=== PATIENT | female | born 1940 | race Caucasian/White ===

== ENCOUNTER 2019-12-23 14:20 | Outpatient (RCR) | payer SELFPAY | END 2020-07-26 14:24 | disposition home or self-care (01) | LOC: ANHCPRIII 14:20 | DX: I25.10 Atherosclerotic heart disease of native coronary artery without angina pectoris (principal) | CPT/HCPCS: 99199 ==

== ENCOUNTER 2023-06-10 11:16 | Inpatient (IN) | payer MEDICARE, OTHER, SELFPAY ==
--- NOTE | ~2023-06-10 | CT_ITS ---
EXAMINATION: CT abdomen pelvis w con DATE: 06/10/2023 12:57 INDICATION: Nonlocalized abdominal pain TECHNIQUE: Computed tomography (CT) of the abdomen and pelvis was performed with 100 cc Omnipaque 350 intravenous contrast. The dose-length product was 983.88 mGy-cm. Automated exposure control and iter ative reconstruction technique were employed. COMPARISON: None. FINDINGS: Lung bases are unremarkable. Heart size is normal. No significant pleural or pericardial ef fusion. The liver, spleen, pancreas, adrenal glands are unremarkable. The right kidney is unremarkabl e. There is heterogeneously decreased enhancement of the left kidney with moderate left perinephric s tranding cyst. Findings compatible with pyelonephritis. Status post cholecystectomy. There is atheros clerosis of the aorta without aneurysm. Colonic diverticulosis without evidence for diverticulitis. S mall fat-containing umbilical hernia. Colonic diverticulosis without evidence for diverticulitis. No free air. Bladder wall is mildly thickened. Severe lumbar spondylosis with grade 1 spondylolisthesis at L4-5. IMPRESSION: 1. Asymmetric geographic hypoperfusion of the left kidney with surrounding inflammatory changes, susp icious for pyelonephritis. There is bladder wall thickening. Cannot exclude ascending urinary tract i nfection. Reviewed, dictated and finalized at location B. IMPRESSION: 1. Asymmetric geographic hypoperfusion of the left kidney with surrounding infl ammatory changes, suspicious for pyelonephritis. There is bladder wall thickeni ng. Cannot exclude ascending urinary tract infection.
--- NOTE | ~2023-06-10 | XR_ITS ---
EXAMINATION: XR chest 1V portable 06/11/2023 16:39 INDICATION: Shortness of breath PROCEDURE: AP portable chest COMPARISON: Comparison to multiple prior studies sequentially, with oldest reviewed study dated 02/07. FINDINGS: The lungs are clear. Pacemaker leads in expected position. The cardiomediastinal silhouette is within normal limits. There are no pleural effusions. There is no pneumothorax suspected. IMPRESSION: 1: NO ACUTE CARDIOPULMONARY DISEASE. Reviewed, dictated and finalized at location L.
[2023-06-10 11:10] VITALS: BP 163/57; PULSE 64; RESP 19; TEMP 37; O2SAT 98
[2023-06-10 12:00] LABS: Basophils Absolute Auto 0.1 K/mm3 (0.0-0.1); Basophils Percent Auto 0.3 % (0.2-1.2); Eosinophils Absolute Auto 0.1 K/mm3 (0-0.3); Eosinophils Percent Auto 0.3 % (0-4.4); Hematocrit 32.7 % (37.0-47.0); Hemoglobin 10.4 g/dL (12.0-15.0); Immature Granulocyte Absolute 0.21 K/mm3 (0.00-0.031); Immature Granulocyte Percent A 0.9 % (0-0.5); Lymphocytes Absolute Auto 0.94 K/mm3 (0.9-3.2); Lymphocytes Percent Auto 4.2 % (18.3-44.2); Mean Corpuscular HGB Conc 31.8 g/dl (32-36); Mean Corpuscular Hemoglobin 23.7 pg (26-34); Mean Corpuscular Volume 74.5 fl (80-100); Mean Platelet Volume 9.1 fl (7.4-10.4); Monocytes Absolute Auto 1.3 K/mm3 (0.1-0.6); Neutrophils Absolute Auto 19.7 K/mm3 (1.3-6.7); Neutrophils Percent Auto 88.3 % (45.5-73.1); Platelet Count Result 289 k/mm3 (150-375); Red Blood Count 4.39 M/mm3 (4.2-5.4); Red Cell Distribution Width 16.5 % (11.5-14.5); White Blood Count 22.3 K/mm3 (4.5-10.0)
[2023-06-10] MEDS: ONDANSETRON INJ 4 MG/2 ML VIAL IV PUSH ×2 (12:04→16:52)
[2023-06-10] MEDS: SODIUM CHLORIDE 0.9% IV 1,000 ML 999 ML IV CONT (12:04)
[2023-06-10 12:15] LABS: Alanine Aminotransferase 19 U/L (6-35); Albumin Level 3.8 g/dL (3.5-5.1); Alkaline Phosphatase 89 U/L (38-126); Anion Gap 5 mmol/L (8-16); Aspartate Amino Transferase 30 U/L (14-36); Bilirubin,Total 1.2 mg/dL (0.2-1.3); Blood Urea Nitrogen 27 mg/dL (7-17); Calcium 8.7 mg/dL (8.4-10.2); Carbon Dioxide 24 mmol/L (22-30); Chloride 96 mmol/L (98-107); Estimated CRCL calculation 28 ml/min; Estimated Glomerular Filt Rate 31; Glucose 167 mg/dL (65-110); Lipase 53 U/L (23-300); Potassium 3.7 mmol/L (3.4-5.0); Sodium 125 mmol/L (137-145)
[2023-06-10 12:18] LABS: Anisocytosis 1+ (NORMAL); Microcytosis 1+ (NORMAL); Platelet Estimate Adequate (Adequate); Schistocytes None Seen (NORMAL)
[2023-06-10 12:35] LABS: Influenza A QL RT-PCR Negative (Negative); Influenza B QL RT-PCR Negative (Negative); SARS-CoV-2 RNA PCR Negative (Negative)
[2023-06-10 13:10] VITALS: BP 160/94; PULSE 67; RESP 18; O2SAT 95
[2023-06-10 13:51] LABS: Appearance Urine Turbid (Clear); Bacteria Urine 4+ /hpf; Bilirubin Urine Negative (Negative); Blood Urine 3+ (Negative); Color Urine Yellow (Yellow); Glucose Urine UA Negative (Negative); Ketones Urine Negative (Negative); Leukocyte Esterase Ur 3+ LEU/UL (Negative); Nitrate Urine Positive (Negative); Protein Urine 2+ mg/dL (Negative); RBC Urine 51-100 /hpf (0-2); Specific Grav Ur 1.033 (1.001-1.035); Squamous Epithelial Cell Urine Many /hpf (Few); Urobilinogen Urine 0.2 mg/dL (<2.0); WBC Urine >100 /hpf
[2023-06-10 13:54] LABS: Add Urine Microscopic? YES
--- NOTE | 2023-06-10 14:39 | ED.GENADULT ---
HPI - General Adult General Chief complaint: Nausea/Vomiting/Diarrhea Stated complaint: weakness Time Seen by Provider: 06/10/23 11:23 History of Present Illness HPI narrative: Patient is an 83-year-old female who presents ER with nausea and vomiting. Ongoing for last 2 days. Associated weakness. No fevers or chills. No known sick contacts. She has had some loose stools. She is found no alleviating factors at home. Related Data Home Medications Medication Instructions Recorded Confirmed amlodipine 5 mg tablet 5 mg PO DAILY 06/10/23 06/10/23 aspirin 81 mg tablet,delayed 81 mg PO DAILY 06/10/23 06/10/23 release cinnamon bark 500 mg capsule 1,000 mg PO DAILY 06/10/23 06/10/23 (Cinnamon) colesevelam 625 mg tablet 1,875 mg PO BID 06/10/23 06/10/23 ezetimibe 10 mg tablet 10 mg PO DAILY 06/10/23 06/10/23 levothyroxine 125 mcg tablet 125 mcg PO DAILY 06/10/23 06/10/23 (Synthroid) losartan 100 1 tablet PO DAILY 06/10/23 06/10/23 mg-hydrochlorothiazide 25 mg tablet metoprolol succinate 100 mg 100 mg PO DAILY 06/10/23 06/10/23 tablet,extended release 24 hr omega-3s 360 ld-hne-poh-fish oil 1 cap PO DAILY 06/10/23 06/10/23 1,200 mg-D3 1,000 unit capsule (Fish Oil-Vit D3) rivaroxaban 20 mg tablet (Xarelto) 20 mg PO DAILY 06/10/23 06/10/23 Allergies Allergy/AdvReac Type Severity Reaction Status Date / Time Sulfa (Sulfonamide Allergy Intermediate Hives / Verified 06/10/23 15:24 Antibiotics) Red Face azithromycin Allergy Mild Rash Verified 06/10/23 15:24 clavulanic acid Allergy Mild Swelling Verified 06/10/23 15:24 lisinopril Allergy Mild Cough Verified 06/10/23 15:24 Penicillins Allergy Mild Swelling Verified 06/10/23 15:24 amoxicillin Allergy Unknown Unknown Verified 06/10/23 15:24 BETALACTAMASEIN Allergy Mild Swelling Uncoded 06/10/23 15:24 Review of Systems Review of Systems: All systems reviewed & are unremarkable except as noted in HPI and below Constitutional: Constitutional: Denies chills, Reports fatigue and Denies fever(s) ENT: Denies nasal congestion and Denies sore throat Cardiovascular: Cardiovascular: Denies chest pain, Denies rapid heart rate and Denies radiating jaw, neck or arm pain Gastrointestinal: Gastrointestinal: Denies abdominal pain, Reports diarrhea, Reports nausea and Reports vomiting Genitourinary: Genitourinary: Denies nocturia, Denies dysuria and Denies flank pain PMFSH Past Medical History Medical History (Updated 06/10/23 @ 14:46 by Jorge Portillo MD) Coronary artery disease Hyperlipidemia Hypertension Surgical History Surgical History (Updated 06/10/23 @ 14:46 by Jorge Portillo MD) History of cholecystectomy History of percutaneous coronary intervention History of tonsillectomy Family History Family History (Updated 06/10/23 @ 17:03 by Varinder Hernández RN) Father Lung cancer Mother History of heart bypass surgery Social History Social History Smoking status: Never smoker Second hand tobacco smoke exposure: No Alcohol intake: never Substance use: never Lack of Transportation: No Lack of Food: Never True Current Housing: I Have Housing Concerned About Future Housing: No Difficulty Paying Gas/Electric Bills: No Difficulty Paying for Meds: No Currently Unemployed: No Education: Bachelor's Degree Difficulty w/ Childcare or Family Care: No Spiritual care concerns: No Exam Narrative: GENERAL: Fatigued appearing, obese, and in no acute distress. HEAD: Normocephalic, atraumatic. ENT: Mucous membranes moist. NECK: Supple. CHEST: Clear to auscultation. No respiratory distress. HEART: Regular rate and rhythm. Normal peripheral pulses. ABDOMEN: Soft, nontender, nondistended. EXTREMITIES: Normal range of motion. No edema. SKIN: Warm, dry, no rash. NEURO: Alert and oriented x3. PSYCH: Normal mood and affect. Course Vital Signs Vital signs: Vital Signs Temperature 98.6 F 06/10/23 11:10 Puls
[2023-06-10 15:20] VITALS: BP 152/90; PULSE 67; RESP 24; O2SAT 93
[2023-06-10 16:07] VITALS: BP 177/62; PULSE 77; RESP 24; O2SAT 93
[2023-06-10 16:44] VITALS: BMI 35.2
--- NOTE | 2023-06-10 16:57 | ADMGEN ---
This patient, Loni Stroud, was admitted to 2 Medical Room 261-01. Patient/family oriented to hospital policies and general routines including ID bracelet, bed and alarms, visiting hours, pain management, procedures, bathroom and other care routines, personal items, smoking policy, room service/diet, and visiting hours. Information on how to activate the Rapid Response Team has been discussed. Patient/Family are encouraged to report perceived risks to care and to ask questions if they do not understand what they are told or what they should do.
[2023-06-10 16:59] VITALS: BP 149/49; PULSE 70; RESP 18; TEMP 36.4; O2SAT 94
[2023-06-10 17:00] VITALS: BMI 35.2
--- NOTE | 2023-06-10 20:16 | PM.IMHP ---
H&P: HPI History of Present Illness Date/Time: 06/10/23 20:16 Chief Complaint: Nausea vomiting and diarrhea. Narrative: This is a 83-year-old female patient who has been feeling poorly for the last 2 days. She came to the emergency room complaining of nausea vomiting. She has no fever chills but complains of weakness. She has no known sick contacts. She has not noticed any blood in her stool or vomited any blood. Patient does not have any complaints of any dysuria. Her white count was noted to be 22.3. H&H is 10.4 and 32.7. MCV is 74.5. She has macrocytic anemia. Her sodium was low at 125. Her BUN is 27 creatinine 1.6. The patient denies any recent or past renal failure. Her GFR is 31. Glucose 167. Abdominal CT was read as the following. Asymmetric geographic hypoperfusion of the left kidney with surrounding inflammatory changes, suspicious for pyelonephritis. There is bladder wall thickening. Cannot exclude ascending urinary tract infection. Her blood pressure is 118/44. The patient was given IV fluids, Rocephin, and Zofran in the emergency room. The patient is being admitted to observation status on the date of service of 06/10/2023. Review of Systems Review of Systems: All systems reviewed & are unremarkable except as noted in HPI and below Constitutional: Constitutional: Reports as per HPI and Reports no additional constitutional complaints Eyes: Eyes: Reports as per HPI and Reports no additional eye complaints ENT: Reports system reviewed and no additional complaints, except as documented and Reports Normal hearing present Cardiovascular: Cardiovascular: Reports no additional cardiovascular complaints Respiratory: Respiratory: Reports no additional respiratory complaints and Reports no additional respiratory complaints Gastrointestinal: Gastrointestinal: Reports as per HPI and Reports no additional gastrointestinal complaints Musculoskeletal: Musculoskeletal: Reports no additional musculoskeletal complaints Integumentary/Breasts: Skin/Breast: Reports system reviewed and no additional complaints, except as docu and Reports as per HPI Neurologic: Reports system reviewed and no additional complaints, except as documented, Reports as per HPI and Reports Normal hearing present Psychiatric: Psychiatric: Reports no additional psychiatric complaints and Reports as per HPI Endocrine: Endocrine: Reports no additional endocrine complaints Hematologic/Lymphatic: Hematologic/Lymphatic: Reports no additional hematologic/lymphatic complaints Allergic/Immunologic: Allergic/Immunologic: Reports no additional allergic/immunologic complaints [facility] Past Medical History Medical History (Updated 06/11/23 @ 00:56 by Claribel Garza NP) Atrial fibrillation Coronary artery disease Hyperlipidemia Hypertension Hypothyroidism Surgical History Surgical History (Updated 06/11/23 @ 00:46 by Claribel Garza NP) History of cholecystectomy History of percutaneous coronary intervention One stent History of tonsillectomy Family History Family History Father Lung cancer Mother History of heart bypass surgery Social History Social History (Updated 06/11/23 @ 00:47 by Claribel Garza NP) Social History: She lives with her and has 2 children. She is a lifelong nonsmoker. No alcohol marijuana or illicit drugs. 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 Code status full code Smoking status: Never smoker Second hand tobacco smoke exposure: No Alcohol intake: never Substance use: never Lack of Transportation: No Lack of Food: Never True Current Housing: I Have Housing Concerned About Future Housing: No Difficulty Paying Gas/Electric Bills: No Difficulty Paying for Meds: No Currently Unemployed: No Education: Bachelor's Degree Difficulty w/ Childcare or Family Care: No Spiritual care concerns:
[2023-06-10] MEDS: FAMOTIDINE 20 MG/2 ML VIAL IV PUSH (20:53)
[2023-06-10] MEDS: RIVAROXABAN 20 MG TABLET PO (20:53)
[2023-06-10 22:00] VITALS: BP 118/44; PULSE 74; RESP 18; TEMP 36.7; O2SAT 95
--- NOTE | 2023-06-11 00:49 | ECG_ITS ---
Measurements Intervals [place] Rate: 60 P: 93 MI: 199 QRS: 18 QRSD: 107 T: 53 QT: 416 QTc: 416 Interpretive Statements SINUS RHYTHM LOW QRS VOLTAGE IN PRECORDIAL LEADS [QRS DEFLECTION < 1.0 mV IN CHEST LEADS] NONSPECIFIC ST AND T-WAVE ABNORMALITY NO PREVIOUS ECG AVAILABLE FOR COMPARISON Electronically Signed On 06-11-2023 11:01:03 CDT by Saravanan Leggett M.D.
[2023-06-11 01:31] LABS: Anion Gap 3 mmol/L (8-16); Blood Urea Nitrogen 31 mg/dL (7-17); Calcium 7.9 mg/dL (8.4-10.2); Carbon Dioxide 20 mmol/L (22-30); Chloride 99 mmol/L (98-107); Estimated CRCL calculation 25 ml/min; Estimated Glomerular Filt Rate 27; Glucose 152 mg/dL (65-110); Potassium 3.6 mmol/L (3.4-5.0); Sodium 122 mmol/L (137-145)
[2023-06-11] MEDS: SODIUM CHLORIDE 0.9% IV 1,000 ML 100 ML IV CONT ×2 (02:10→12:46)
--- NOTE | 2023-06-11 05:15 | PC.NURSE ---
On 06/10/23-06/11/23, the license pending RN, Garett Velez, provided care and completed [employer] documentation on this patient. I have reviewed the RN's documentation and agree with the findings.
[2023-06-11 05:37] LABS: Basophils Absolute Auto 0.1 K/mm3 (0.0-0.1); Basophils Percent Auto 0.3 % (0.2-1.2); Eosinophils Absolute Auto 0.1 K/mm3 (0-0.3); Eosinophils Percent Auto 0.5 % (0-4.4); Hematocrit 29.8 % (37.0-47.0); Hemoglobin 9.2 g/dL (12.0-15.0); Immature Granulocyte Absolute 0.14 K/mm3 (0.00-0.031); Immature Granulocyte Percent A 0.8 % (0-0.5); Lymphocytes Absolute Auto 0.98 K/mm3 (0.9-3.2); Lymphocytes Percent Auto 5.6 % (18.3-44.2); Mean Corpuscular HGB Conc 30.9 g/dl (32-36); Mean Corpuscular Hemoglobin 23.5 pg (26-34); Mean Corpuscular Volume 76.2 fl (80-100); Monocytes Absolute Auto 1.5 K/mm3 (0.1-0.6); Monocytes Percent Auto 8.4 % (2.6-8.5); Neutrophils Absolute Auto 14.8 K/mm3 (1.3-6.7); Neutrophils Percent Auto 84.4 % (45.5-73.1); Platelet Count Result 249 k/mm3 (150-375); Red Blood Count 3.91 M/mm3 (4.2-5.4); Red Cell Distribution Width 16.8 % (11.5-14.5); White Blood Count 17.5 K/mm3 (4.5-10.0)
[2023-06-11 05:57] LABS: Alanine Aminotransferase 15 U/L (6-35); Albumin Level 2.9 g/dL (3.5-5.1); Alkaline Phosphatase 68 U/L (38-126); Anion Gap 4 mmol/L (8-16); Aspartate Amino Transferase 23 U/L (14-36); Bilirubin,Total 0.6 mg/dL (0.2-1.3); Blood Urea Nitrogen 33 mg/dL (7-17); Calcium 7.7 mg/dL (8.4-10.2); Carbon Dioxide 20 mmol/L (22-30); Chloride 99 mmol/L (98-107); Estimated CRCL calculation 26 ml/min; Estimated Glomerular Filt Rate 29; Glucose 134 mg/dL (65-110); Magnesium 1.9 mg/dL (1.6-2.3); Potassium 3.5 mmol/L (3.4-5.0); Sodium 123 mmol/L (137-145)
[2023-06-11 05:59] LABS: Lactic Acid Reflex 0.8 mmol/L (0.7-2.0)
[2023-06-11 06:00] VITALS: BP 107/41; PULSE 58; RESP 18; TEMP 36.6; O2SAT 97
[2023-06-11 06:29] LABS: Thyroid Stimulating Hormone Reflex 0.081 uIU/mL (0.465-4.68)
[2023-06-11 09:06] VITALS: PULSE 60
[2023-06-11] MEDS: EZETIMIBE 10 MG TABLET PO (09:06)
[2023-06-11] MEDS: COLESEVELAM 625 MG TABLET 1875 MG PO ×2 (09:06→18:04)
[2023-06-11] MEDS: LEVOTHYROXINE SODIUM 125 MCG TABLET PO (09:06)
[2023-06-11] MEDS: METOPROLOL SUCCINATE EXT REL 100 MG TABCR PO (09:06)
[2023-06-11] MEDS: OMEGA 3 POLYUNSAT FATTY ACIDS 1 GM CAP PO (09:06)
[2023-06-11] MEDS: amLODIPine BESYLATE 5 MG TABLET PO (09:06)
[2023-06-11] MEDS: FAMOTIDINE 20 MG/2 ML VIAL IV PUSH ×2 (09:07→20:03)
[2023-06-11 10:30] LABS: Total Triiodothyronine (T3) 0.53 NG/ML (0.97-1.69)
[2023-06-11] MEDS: ACETAMINOPHEN 325 MG TABLET 650 MG PO (12:52)
[2023-06-11] MEDS: cefTRIAXone 2 GM/NS 100 ML 2 GM/100 ML BAG IVPB (12:52)
[2023-06-11 14:00] VITALS: BP 117/38; PULSE 59; RESP 16; TEMP 36.7; O2SAT 95
[2023-06-11 15:46] VITALS: BP 120/58
--- NOTE | 2023-06-11 16:23 | P.PNIM_ITS ---
Progress Note: A&P Assessment and Plan (1) Pyelonephritis: Code(s): N12 - Tubulo-interstitial nephritis, not specified as acute or chronic Status: Acute Assessment and Plan: * Presented with feeling weak and tired * CT of the abdomen left kidney with surrounding inflammatory, suspicious for pyelonephritis * Urine culture grew gram neg isolated * Blood cultures positive * Increase ceftriaxone 2 g daily * trend urine output (2) Hyperlipidemia: Qualifiers: Hyperlipidemia type: moderate mixed hyperlipidemia not requiring statin therapy Qualified Code(s): E78.2 - Mixed hyperlipidemia Code(s): E78.5 - Hyperlipidemia, unspecified Status: Acute Assessment and Plan: * Continue with [place] 3 and Zetia (3) Hypertension: Qualifiers: Hypertension type: primary hypertension Qualified Code(s): I10 - Essential (primary) hypertension Code(s): I10 - Essential (primary) hypertension Status: Acute Assessment and Plan: * Current BP is 120/58 * Continue with amlodipine, and continue losartan with hydrochlorothiazide * Trend BP * Adjust therapy as indicated (4) Hypothyroidism: Qualifiers: Hypothyroidism type: acquired Qualified Code(s): E03.9 - Hypot hyroidism, unspecified Code(s): E03.9 - Hypothyroidism, unspecified Status: Acute Assessment and Plan: * Continue with levothyroxine * Thyroid 0.081, T4 1.80, T3 0.53 (5) Atrial fibrillation: Qualifiers: Atrial fibrillation type: unspecified Qualified Code(s): I48.91 - Unspecified atrial fibrillation Code(s): I48.91 - Unspecified atrial fibrillation Status: Acute Assessment and Plan: * Heart rate controlled * Rhythm is stable * Continue with Xarelto metoprolol * Continue to trend heart rate * Continue telemetry (6) Acute renal failure: Qualifiers: Acute renal failure type: unspecified Qualified Code(s): N17.9 - Acute kidney failure, unspecified Code(s): N17.9 - Acute kidney failure, unspecified Status: Acute Assessment and Plan: * BUN/Cr 33/1.70, peaked at 1.80 * Current 27/1.60 * Hold losartan with hydrochlorothiazide. * Avoid nephrotoxic medication. * DC IV fluids. * Trend labs * Trend urine output (7) UTI (urinary tract infection): Qualifiers: Urinary tract infection type: acute pyelonephritis Qualified Code(s): N10 - Acute pyelonephritis Code(s): N39.0 - Urinary tract infection, site not specified Status: Acute Assessment and Plan: * UA was dirty * Urine culture did grow gram negative isolated * Ceftriaxone on board * Trend urine output * Adjust antibiotics to sensitivities Time Spent With Patient Time: 48 minutes Time with patient: Greater than 35 minutes Subjective Date/time seen: 06/11/23 16:23 Interval history: Patient is lying in bed. She is complaining that she is little short of breath. Her daughter, grandson, are in the room she did give me permission to talk to her while there and there. She stated that she has just been very weak and just does not feel very good today. She and exactly quite pin was wrong with her. She also stated that she does wear pads and does not changed in quite often howeve
--- NOTE | 2023-06-11 16:23 | PM.IMPN ---
Progress Note: A&P Assessment and Plan (1) Pyelonephritis: Code(s): N12 - Tubulo-interstitial nephritis, not specified as acute or chronic Status: Acute Assessment and Plan: Presented with feeling weak and tired CT of the abdomen left kidney with surrounding inflammatory, suspicious for pyelonephritis Urine culture grew gram neg isolated Blood cultures positive Increase ceftriaxone 2 g daily trend urine output (2) Hyperlipidemia: Qualifiers: Hyperlipidemia type: moderate mixed hyperlipidemia not requiring statin therapy Qualified Code(s): E78.2 - Mixed hyperlipidemia Code(s): E78.5 - Hyperlipidemia, unspecified Status: Acute Assessment and Plan: Continue with [place] 3 and Zetia (3) Hypertension: Qualifiers: Hypertension type: primary hypertension Qualified Code(s): I10 - Essential (primary) hypertension Code(s): I10 - Essential (primary) hypertension Status: Acute Assessment and Plan: Current BP is 120/58 Continue with amlodipine, and continue losartan with hydrochlorothiazide Trend BP Adjust therapy as indicated (4) Hypothyroidism: Qualifiers: Hypothyroidism type: acquired Qualified Code(s): E03.9 - Hypothyroidism, unspecified Code(s): E03.9 - Hypothyroidism, unspecified Status: Acute Assessment and Plan: Continue with levothyroxine Thyroid 0.081, T4 1.80, T3 0.53 (5) Atrial fibrillation: Qualifiers: Atrial fibrillation type: unspecified Qualified Code(s): I48.91 - Unspecified atrial fibrillation Code(s): I48.91 - Unspecified atrial fibrillation Status: Acute Assessment and Plan: Heart rate controlled Rhythm is stable Continue with Xarelto metoprolol Continue to trend heart rate Continue telemetry (6) Acute renal failure: Qualifiers: Acute renal failure type: unspecified Qualified Code(s): N17.9 - Acute kidney failure, unspecified Code(s): N17.9 - Acute kidney failure, unspecified Status: Acute Assessment and Plan: BUN/Cr 33/1.70, peaked at 1.80 Current 27/1.60 Hold losartan with hydrochlorothiazide. Avoid nephrotoxic medication. DC IV fluids. Trend labs Trend urine output (7) UTI (urinary tract infection): Qualifiers: Urinary tract infection type: acute pyelonephritis Qualified Code(s): N10 - Acute pyelonephritis Code(s): N39.0 - Urinary tract infection, site not specified Status: Acute Assessment and Plan: UA was dirty Urine culture did grow gram negative isolated Ceftriaxone on board Trend urine output Adjust antibiotics to sensitivities Time Spent With Patient Time: 48 minutes Time with patient: Greater than 35 minutes Subjective Date/time seen: 06/11/23 16:23 Interval history: Patient is lying in bed. She is complaining that she is little short of breath. Her daughter, grandson, are in the room she did give me permission to talk to her while there and there. She stated that she has just been very weak and just does not feel very good today. She and exactly quite pin was wrong with her. She also stated that she does wear pads and does not changed in quite often however she stated she does not urinate that much. She does deny any chest pain, nausea, vomiting, diarrhea constipation. Review of Systems Review of Systems: All systems reviewed & are unremarkable except as noted in HPI and below Exam Narrative: General: well-nourished, well-appearing 83-year-old male, sitting up in bed, comfortable, NARD Neuro: awake, alert and oriented x4, speech clear, no focal neuro deficits noted HEENMT: normocephalic, atraumatic, EOMI, sclerae anicteric, moist oral mucosa Respiratory: Clear to auscultation bilaterally without crackles, rhonchi or wheezes,
[2023-06-11] MEDS: RIVAROXABAN 20 MG TABLET PO (18:05)
[2023-06-11] MEDS: ASPIRIN 81 MG ENTERIC TABLET PO (18:05)
[2023-06-11 22:27] VITALS: BP 116/61; PULSE 101; RESP 18; TEMP 36.1; O2SAT 95
[2023-06-12] MEDS: HYDROcodone/acetaminophen (*CRX) 5-325 MG TABLET 1 TAB PO ×3 (01:14→16:25)
[2023-06-12 05:32] LABS: Basophils Absolute Auto 0.1 K/mm3 (0.0-0.1); Basophils Percent Auto 0.3 % (0.2-1.2); Eosinophils Absolute Auto 0.1 K/mm3 (0-0.3); Eosinophils Percent Auto 0.4 % (0-4.4); Hematocrit 28.6 % (37.0-47.0); Hemoglobin 8.9 g/dL (12.0-15.0); Immature Granulocyte Absolute 0.13 K/mm3 (0.00-0.031); Immature Granulocyte Percent A 0.7 % (0-0.5); Lymphocytes Absolute Auto 0.98 K/mm3 (0.9-3.2); Lymphocytes Percent Auto 5.3 % (18.3-44.2); Mean Corpuscular HGB Conc 31.1 g/dl (32-36); Mean Corpuscular Hemoglobin 23.7 pg (26-34); Mean Corpuscular Volume 76.1 fl (80-100); Mean Platelet Volume 10.1 fl (7.4-10.4); Monocytes Absolute Auto 1.5 K/mm3 (0.1-0.6); Monocytes Percent Auto 8.3 % (2.6-8.5); Neutrophils Absolute Auto 15.6 K/mm3 (1.3-6.7); Platelet Count Result 268 k/mm3 (150-375); Red Blood Count 3.76 M/mm3 (4.2-5.4); Red Cell Distribution Width 16.9 % (11.5-14.5); White Blood Count 18.3 K/mm3 (4.5-10.0)
[2023-06-12 05:42] LABS: Alanine Aminotransferase 15 U/L (6-35); Alkaline Phosphatase 72 U/L (38-126); Anion Gap 6 mmol/L (8-16); Aspartate Amino Transferase 19 U/L (14-36); Bilirubin,Total 0.3 mg/dL (0.2-1.3); Blood Urea Nitrogen 31 mg/dL (7-17); Calcium 7.7 mg/dL (8.4-10.2); Carbon Dioxide 20 mmol/L (22-30); Chloride 98 mmol/L (98-107); Estimated CRCL calculation 28 ml/min; Estimated Glomerular Filt Rate 31; Glucose 131 mg/dL (65-110); Magnesium 1.9 mg/dL (1.6-2.3); Potassium 3.7 mmol/L (3.4-5.0); Sodium 124 mmol/L (137-145)
[2023-06-12 06:00] VITALS: BP 111/57; PULSE 58; RESP 16; TEMP 36.5; O2SAT 93
--- NOTE | 2023-06-12 06:21 | PC.NURSE ---
reviewed and agree with all charting and documentation by yudelka lousi
[2023-06-12] MEDS: COLESEVELAM 625 MG TABLET 1875 MG PO ×2 (08:36→16:25)
[2023-06-12] MEDS: OMEGA 3 POLYUNSAT FATTY ACIDS 1 GM CAP PO (08:36)
[2023-06-12] MEDS: EZETIMIBE 10 MG TABLET PO (08:36)
[2023-06-12 08:37] VITALS: PULSE 96
[2023-06-12] MEDS: METOPROLOL SUCCINATE EXT REL 100 MG TABCR PO (08:37)
[2023-06-12] MEDS: ASPIRIN 81 MG ENTERIC TABLET PO (08:37)
[2023-06-12] MEDS: LEVOTHYROXINE SODIUM 125 MCG TABLET PO (08:37)
[2023-06-12] MEDS: amLODIPine BESYLATE 5 MG TABLET PO (08:38)
[2023-06-12] MEDS: FAMOTIDINE 20 MG/2 ML VIAL IV PUSH ×2 (08:38→20:25)
[2023-06-12 08:58] LABS: Iron 14 ug/dL (37-170)
[2023-06-12 09:07] LABS: Percent Iron Saturation 4 % (20-50)
[2023-06-12 09:08] LABS: NT Pro B Type Natriuretic Pept 9240 pg/mL (19.9-100)
[2023-06-12 09:10] LABS: Transferrin 181 mg/dL (206-381)
[2023-06-12 09:12] LABS: Potassium Urine Random 12.4 meq/L; Urea Random Urine 596 MG/DL
[2023-06-12 09:20] LABS: Sodium Urine Random < 5 meq/L
[2023-06-12 10:11] LABS: Folic Acid > 20.0 ng/mL (2.76->20)
--- NOTE | 2023-06-12 10:45 | P.PNIM_ITS ---
Progress Note: A&P Assessment and Plan (1) Pyelonephritis: Code(s): N12 - Tubulo-interstitial nephritis, not specified as acute or chronic Status: Acute Assessment and Plan: * Presented with feeling weak and tired * CT of the abdomen left kidney with surrounding inflammatory, suspicious for pyelonephritis * Urine culture grew ecoli * Blood cultures positive with ecoli * Continue ceftriaxone 2 g daily * trend urine output (2) Hyperlipidemia: Qualifiers: Hyperlipidemia type: moderate mixed hyperlipidemia not requiring statin therapy Qualified Code(s): E78.2 - Mixed hyperlipidemia Code(s): E78.5 - Hyperlipidemia, unspecified Status: Acute Assessment and Plan: * Continue with [place] 3 and Zetia (3) Hypertension: Qualifiers: Hypertension type: primary hypertension Qualified Code(s): I10 - Essential (primary) hypertension Code(s): I10 - Essential (primary) hypertension Status: Acute Assessment and Plan: * Current BP is 111/57 * Continue with amlodipine, and continue losartan with hydrochlorothiazide * Trend BP * Adjust therapy as indicated (4) Hypothyroidism: Qualifiers: Hypothyroidism type: acquired Qualified Code(s): E03.9 - Hypothy roidism, unspecified Code(s): E03.9 - Hypothyroidism, unspecified Status: Acute Assessment and Plan: * Continue with levothyroxine * Thyroid 0.081, T4 1.80, T3 0.53 (5) Atrial fibrillation: Qualifiers: Atrial fibrillation type: unspecified Qualified Code(s): I48.91 - Unspecified atrial fibrillation Code(s): I48.91 - Unspecified atrial fibrillation Status: Acute Assessment and Plan: * Heart rate controlled * Rhythm is stable * Continue with Xarelto metoprolol * Continue to trend heart rate * Continue telemetry (6) Acute renal failure: Qualifiers: Acute renal failure type: unspecified Qualified Code(s): N17.9 - Acute kidney failure, unspecified Code(s): N17.9 - Acute kidney failure, unspecified Status: Acute Assessment and Plan: * BUN/Cr 33/1.70, peaked at 1.80 * Current 31/1.60 * Hold losartan with hydrochlorothiazide. * Avoid nephrotoxic medication. * DC IV fluids. * Trend labs * Trend urine output * Urine labs ordered * Could be dehydration * Fluids stopped with complaints of shortness of breath and possible fluid overload (7) UTI (urinary tract infection): Qualifiers: Urinary tract infection type: acute pyelonephritis Qualified Code(s): N10 - Acute pyelonephritis Code(s): N39.0 - Urinary tract infection, site not specified Status: Acute Assessment and Plan: * UA was dirty * Urine culture Ecoli * Ceftriaxone on board * Trend urine output * Adjust antibiotics to sensitivities (8) Acute hyponatremia: Code(s): E87.1 - Hypo-osmolality and hyponatremia Status: Acute Assessment and Plan: * Na upon arrival 125 * Currently 124 * Fluids stopped with complaints of shortness of breath * Urine labs ordered * Consider nephrology if no improvements * continue to trend * adjust therapy as indicated (9) Anemia: Qualifiers: Anemia ty
--- NOTE | 2023-06-12 10:45 | PM.IMPN ---
Progress Note: A&P Assessment and Plan (1) Pyelonephritis: Code(s): N12 - Tubulo-interstitial nephritis, not specified as acute or chronic Status: Acute Assessment and Plan: Presented with feeling weak and tired CT of the abdomen left kidney with surrounding inflammatory, suspicious for pyelonephritis Urine culture grew ecoli Blood cultures positive with ecoli Continue ceftriaxone 2 g daily trend urine output (2) Hyperlipidemia: Qualifiers: Hyperlipidemia type: moderate mixed hyperlipidemia not requiring statin therapy Qualified Code(s): E78.2 - Mixed hyperlipidemia Code(s): E78.5 - Hyperlipidemia, unspecified Status: Acute Assessment and Plan: Continue with [place] 3 and Zetia (3) Hypertension: Qualifiers: Hypertension type: primary hypertension Qualified Code(s): I10 - Essential (primary) hypertension Code(s): I10 - Essential (primary) hypertension Status: Acute Assessment and Plan: Current BP is 111/57 Continue with amlodipine, and continue losartan with hydrochlorothiazide Trend BP Adjust therapy as indicated (4) Hypothyroidism: Qualifiers: Hypothyroidism type: acquired Qualified Code(s): E03.9 - Hypothyroidism, unspecified Code(s): E03.9 - Hypothyroidism, unspecified Status: Acute Assessment and Plan: Continue with levothyroxine Thyroid 0.081, T4 1.80, T3 0.53 (5) Atrial fibrillation: Qualifiers: Atrial fibrillation type: unspecified Qualified Code(s): I48.91 - Unspecified atrial fibrillation Code(s): I48.91 - Unspecified atrial fibrillation Status: Acute Assessment and Plan: Heart rate controlled Rhythm is stable Continue with Xarelto metoprolol Continue to trend heart rate Continue telemetry (6) Acute renal failure: Qualifiers: Acute renal failure type: unspecified Qualified Code(s): N17.9 - Acute kidney failure, unspecified Code(s): N17.9 - Acute kidney failure, unspecified Status: Acute Assessment and Plan: BUN/Cr 33/1.70, peaked at 1.80 Current 31/1.60 Hold losartan with hydrochlorothiazide. Avoid nephrotoxic medication. DC IV fluids. Trend labs Trend urine output Urine labs ordered Could be dehydration Fluids stopped with complaints of shortness of breath and possible fluid overload (7) UTI (urinary tract infection): Qualifiers: Urinary tract infection type: acute pyelonephritis Qualified Code(s): N10 - Acute pyelonephritis Code(s): N39.0 - Urinary tract infection, site not specified Status: Acute Assessment and Plan: UA was dirty Urine culture Ecoli Ceftriaxone on board Trend urine output Adjust antibiotics to sensitivities (8) Acute hyponatremia: Code(s): E87.1 - Hypo-osmolality and hyponatremia Status: Acute Assessment and Plan: Na upon arrival 125 Currently 124 Fluids stopped with complaints of shortness of breath Urine labs ordered Consider nephrology if no improvements continue to trend adjust therapy as indicated (9) Anemia: Qualifiers: Anemia type: iron deficiency Iron deficiency anemia type: inadequate dietary iron intake Qualified Code(s): D50.8 - Other iron deficiency anemias Code(s): D64.9 - Anemia, unspecified Status: Acute Assessment and Plan: H/H 8.9/28.6 Unknown type Anemia labs: iron 14, TIBC 330, % sat 4, Transferrin 181, Ferritin 36.70, B12 867, Folate >20 Supplement with iron 324mg PO BID Could be dilution with fluid administration Continue to trend labs Adjust therapy as indicated Transfuse if hgb <7.0 (10) CHF (congestive heart failure): Qualifiers: Heart failure type: diastolic Heart failure chronicity: acute on c
[2023-06-12] MEDS: cefTRIAXone 2 GM/NS 100 ML 2 GM/100 ML BAG IVPB (11:42)
[2023-06-12] MEDS: ONDANSETRON INJ 4 MG/2 ML VIAL IV PUSH ×3 (11:53→22:43)
[2023-06-12 14:55] VITALS: BP 129/57; PULSE 60; RESP 20; TEMP 36.4; O2SAT 93
[2023-06-12] MEDS: RIVAROXABAN 20 MG TABLET PO (16:25)
[2023-06-12] MEDS: FUROSEMIDE INJ 40 MG/4 ML VIAL IV PUSH (16:25)
[2023-06-12 20:11] VITALS: BP 116/79; PULSE 56; RESP 16; TEMP 36.6; O2SAT 93
[2023-06-13 05:10] VITALS: BP 129/46; PULSE 61; RESP 16; TEMP 36.6; O2SAT 93
[2023-06-13 07:27] LABS: Basophils Absolute Auto 0.1 K/mm3 (0.0-0.1); Basophils Percent Auto 0.5 % (0.2-1.2); Eosinophils Absolute Auto 0.4 K/mm3 (0-0.3); Eosinophils Percent Auto 2.7 % (0-4.4); Hematocrit 29.4 % (37.0-47.0); Hemoglobin 9.3 g/dL (12.0-15.0); Immature Granulocyte Absolute 0.14 K/mm3 (0.00-0.031); Immature Granulocyte Percent A 0.9 % (0-0.5); Lymphocytes Absolute Auto 1.01 K/mm3 (0.9-3.2); Lymphocytes Percent Auto 6.7 % (18.3-44.2); Mean Corpuscular HGB Conc 31.6 g/dl (32-36); Mean Corpuscular Hemoglobin 23.5 pg (26-34); Mean Corpuscular Volume 74.2 fl (80-100); Mean Platelet Volume 10.3 fl (7.4-10.4); Monocytes Absolute Auto 1.5 K/mm3 (0.1-0.6); Monocytes Percent Auto 9.9 % (2.6-8.5); Neutrophils Percent Auto 79.3 % (45.5-73.1); Platelet Count Result 295 k/mm3 (150-375); Red Blood Count 3.96 M/mm3 (4.2-5.4); Red Cell Distribution Width 16.8 % (11.5-14.5); White Blood Count 15.1 K/mm3 (4.5-10.0)
[2023-06-13 07:33] LABS: Alanine Aminotransferase 13 U/L (6-35); Albumin Level 3.1 g/dL (3.5-5.1); Alkaline Phosphatase 64 U/L (38-126); Anion Gap 5 mmol/L (8-16); Aspartate Amino Transferase 21 U/L (14-36); Bilirubin,Total 0.5 mg/dL (0.2-1.3); Blood Urea Nitrogen 30 mg/dL (7-17); Calcium 7.9 mg/dL (8.4-10.2); Carbon Dioxide 22 mmol/L (22-30); Chloride 95 mmol/L (98-107); Estimated CRCL calculation 34 ml/min; Estimated Glomerular Filt Rate 39; Glucose 99 mg/dL (65-110); Magnesium 1.9 mg/dL (1.6-2.3); Potassium 3.4 mmol/L (3.4-5.0); Sodium 122 mmol/L (137-145)
[2023-06-13 08:07] VITALS: PULSE 62
[2023-06-13] MEDS: METOPROLOL SUCCINATE EXT REL 100 MG TABCR PO (08:07)
[2023-06-13] MEDS: COLESEVELAM 625 MG TABLET 1875 MG PO ×2 (08:07→16:34)
[2023-06-13] MEDS: FAMOTIDINE 20 MG/2 ML VIAL IV PUSH (08:07)
[2023-06-13] MEDS: EZETIMIBE 10 MG TABLET PO (08:07)
[2023-06-13] MEDS: ASPIRIN 81 MG ENTERIC TABLET PO (08:07)
[2023-06-13] MEDS: OMEGA 3 POLYUNSAT FATTY ACIDS 1 GM CAP PO (08:07)
[2023-06-13] MEDS: FUROSEMIDE INJ 40 MG/4 ML VIAL IV PUSH (08:07)
[2023-06-13] MEDS: amLODIPine BESYLATE 5 MG TABLET PO (08:07)
[2023-06-13] MEDS: ONDANSETRON INJ 4 MG/2 ML VIAL IV PUSH (08:07)
[2023-06-13] MEDS: LEVOTHYROXINE SODIUM 125 MCG TABLET PO (08:07)
--- NOTE | 2023-06-13 08:33 | PCPTNOTE ---
Attempted to see for physical therapy evaluation, pt refused d/t not sleeping well last night. Will continue to follow.
[2023-06-13 10:01] LABS: Burr Cells 2+ (NORMAL); Platelet Estimate Adequate (Adequate); Schistocytes None Seen (NORMAL)
[2023-06-13] MEDS: cefTRIAXone 2 GM/NS 100 ML 2 GM/100 ML BAG IVPB (11:55)
--- NOTE | 2023-06-13 12:06 | P.PNIM_ITS ---
Progress Note: A&P Assessment and Plan (1) Pyelonephritis: Code(s): N12 - Tubulo-interstitial nephritis, not specified as acute or chronic Status: Acute Assessment and Plan: * Presented with feeling weak and tired * CT of the abdomen left kidney with surrounding inflammatory, suspicious for pyelonephritis * Urine culture grew ecoli * Blood cultures positive with ecoli x 2 * Continue ceftriaxone 2 g daily (2) Hypertension: Qualifiers: Hypertension type: primary hypertension Qualified Code(s): I10 - Essential (primary) hypertension Code(s): I10 - Essential (primary) hypertension Status: Acute Assessment and Plan: * 06/13/23 bp controlled * Continue with amlodipine, and HOLD losartan with hydrochlorothiazide (3) Hypothyroidism: Qualifiers: Hypothyroidism type: acquired Qualified Code(s): E03.9 - Hypothyroidi sm, unspecified Code(s): E03.9 - Hypothyroidism, unspecified Status: Acute Assessment and Plan: * Continue with levothyroxine * TSH 0.081, T4 1.80, T3 0.53 (4) Atrial fibrillation: Qualifiers: Atrial fibrillation type: unspecified Qualified Code(s): I48.91 - Unspecified atrial fibrillation Code(s): I48.91 - Unspecified atrial fibrillation Status: Acute Assessment and Plan: * Heart rate controlled * Rhythm is stable * Continue with Xarelto metoprolol * Continue to trend heart rate * Continue telemetry (5) Acute renal failure: Qualifiers: Acute renal failure type: unspecified Qualified Code(s): N17.9 - Acute kidney failure, unspecified Code(s): N17.9 - Acute kidney failure, unspecified Status: Acute Assessment and Plan: * BUN/Cr 33/1.70, peaked at 1.80 * 06/13/23 creatinine 1.3 (6) UTI (urinary tract infection): Qualifiers: Urinary tract infection type: acute pyelonephritis Qualified Code(s): N10 - Acute pyelonephritis Code(s): N39.0 - Urinary tract infection, site not specified Status: Acute Assessment and Plan: * UA c/w UTI * Urine culture Ecoli * Ceftriaxone 2 gm IV daily (7) Acute hyponatremia: Code(s): E87.1 - Hypo-osmolality and hyponatremia Status: Acute Assessment and Plan: * Na upon arrival 125 * 06/13/23 122, d/c'd furosemide, ordered FEurea, added NaCl tabs * F/u lab (8) Anemia: Qualifiers: Ane
--- NOTE | 2023-06-13 12:06 | PM.IMPN ---
Progress Note: A&P Assessment and Plan (1) Pyelonephritis: Code(s): N12 - Tubulo-interstitial nephritis, not specified as acute or chronic Status: Acute Assessment and Plan: Presented with feeling weak and tired CT of the abdomen left kidney with surrounding inflammatory, suspicious for pyelonephritis Urine culture grew ecoli Blood cultures positive with ecoli x 2 Continue ceftriaxone 2 g daily (2) Hypertension: Qualifiers: Hypertension type: primary hypertension Qualified Code(s): I10 - Essential (primary) hypertension Code(s): I10 - Essential (primary) hypertension Status: Acute Assessment and Plan: 06/13/23 bp controlled Continue with amlodipine, and HOLD losartan with hydrochlorothiazide (3) Hypothyroidism: Qualifiers: Hypothyroidism type: acquired Qualified Code(s): E03.9 - Hypothyroidism, unspecified Code(s): E03.9 - Hypothyroidism, unspecified Status: Acute Assessment and Plan: Continue with levothyroxine TSH 0.081, T4 1.80, T3 0.53 (4) Atrial fibrillation: Qualifiers: Atrial fibrillation type: unspecified Qualified Code(s): I48.91 - Unspecified atrial fibrillation Code(s): I48.91 - Unspecified atrial fibrillation Status: Acute Assessment and Plan: Heart rate controlled Rhythm is stable Continue with Xarelto metoprolol Continue to trend heart rate Continue telemetry (5) Acute renal failure: Qualifiers: Acute renal failure type: unspecified Qualified Code(s): N17.9 - Acute kidney failure, unspecified Code(s): N17.9 - Acute kidney failure, unspecified Status: Acute Assessment and Plan: BUN/Cr 33/1.70, peaked at 1.80 06/13/23 creatinine 1.3 (6) UTI (urinary tract infection): Qualifiers: Urinary tract infection type: acute pyelonephritis Qualified Code(s): N10 - Acute pyelonephritis Code(s): N39.0 - Urinary tract infection, site not specified Status: Acute Assessment and Plan: UA c/w UTI Urine culture Ecoli Ceftriaxone 2 gm IV daily (7) Acute hyponatremia: Code(s): E87.1 - Hypo-osmolality and hyponatremia Status: Acute Assessment and Plan: Na upon arrival 125 06/13/23 122, d/c'd furosemide, ordered FEurea, added NaCl tabs F/u lab (8) Anemia: Qualifiers: Anemia type: iron deficiency Iron deficiency anemia type: inadequate dietary iron intake Qualified Code(s): D50.8 - Other iron deficiency anemias Code(s): D64.9 - Anemia, unspecified Status: Acute Assessment and Plan: H/H 8.9.6 Lab: iron 14, TIBC 330, % sat 4, Transferrin 181, Ferritin 36.70, B12 867, Folate >20 Supplement with iron 324mg PO BID Check stool for occult blood (9) CHF (congestive heart failure): Qualifiers: Heart failure type: diastolic Heart failure chronicity: acute on chronic Qualified Code(s): I50.33 - Acute on chronic diastolic (congestive) heart failure Code(s): I50.9 - Heart failure, unspecified Status: Acute Assessment and Plan: Chronic diastolic heart failure with acute exacerbation due to fluid overload Clinically at baseline 06/13/23 d/c'd furosemide (10) Sepsis: Code(s): A41.9 - Sepsis, unspecified organism Status: Acute Assessment and Plan: At presentation had infection, leukocytosis, MILO, tachycardia, tachypnea Resolved Subjective Date/time seen: 06/13/23 12:06 Interval history: Fatigue with generalized weakness. Tolerating diet. Denied chest pain abdominal pain shortness of breath swelling. Denied abnormal bleeding. Denied focal weakness. Review of Systems Review of Systems: All systems reviewed & are unremarkable except as noted in HPI and below Exam Narrative: HEENT: EOMI, PERRL, sclerae nonicteric, pharyngeal mucosa pink and intact NECK: No JVD, adenopathy, or
[2023-06-13] MEDS: SODIUM CHLORIDE 1 GM TABLET PO ×2 (12:28→16:34)
[2023-06-13 13:23] LABS: Creatinine Urine 10.3 mg/dL; Urea Random Urine 105 MG/DL
[2023-06-13 14:00] VITALS: BP 133/53; PULSE 62; RESP 18; TEMP 36.8; O2SAT 94
[2023-06-13] MEDS: RIVAROXABAN 20 MG TABLET PO (16:34)
[2023-06-13 19:55] VITALS: BP 143/51; PULSE 65; RESP 20; TEMP 36.8; O2SAT 91
[2023-06-13 20:00] VITALS: PULSE 65; RESP 20; O2SAT 91
[2023-06-14 04:48] VITALS: BP 137/47; PULSE 60; RESP 16; TEMP 36.6; O2SAT 90
[2023-06-14] MEDS: SALIVA SUBSTITUTE COMBO RINSE 237 ML BOTTLE 15 ML PO (05:42)
[2023-06-14] MEDS: LEVOTHYROXINE SODIUM 125 MCG TABLET PO (05:58)
[2023-06-14 08:05] LABS: Hematocrit 28.3 % (37.0-47.0); Hemoglobin 8.9 g/dL (12.0-15.0); Mean Corpuscular HGB Conc 31.4 g/dl (32-36); Mean Corpuscular Hemoglobin 23.7 pg (26-34); Mean Corpuscular Volume 75.5 fl (80-100); Mean Platelet Volume 10.4 fl (7.4-10.4); Platelet Count Result 303 k/mm3 (150-375); Red Blood Count 3.75 M/mm3 (4.2-5.4); Red Cell Distribution Width 16.8 % (11.5-14.5); White Blood Count 11.5 K/mm3 (4.5-10.0)
[2023-06-14 08:14] LABS: Anion Gap 6 mmol/L (8-16); Blood Urea Nitrogen 25 mg/dL (7-17); Carbon Dioxide 24 mmol/L (22-30); Chloride 98 mmol/L (98-107); Estimated CRCL calculation 36 ml/min; Estimated Glomerular Filt Rate 43; Glucose 93 mg/dL (65-110); Potassium 3.1 mmol/L (3.4-5.0); Sodium 128 mmol/L (137-145)
[2023-06-14] MEDS: COLESEVELAM 625 MG TABLET 1875 MG PO ×2 (08:23→16:16)
[2023-06-14] MEDS: EZETIMIBE 10 MG TABLET PO (08:23)
[2023-06-14] MEDS: SODIUM CHLORIDE 1 GM TABLET PO (08:23)
[2023-06-14] MEDS: SODIUM CHLORIDE 0.9% IV 1,000 ML 50 ML IV CONT (08:23)
[2023-06-14] MEDS: ASPIRIN 81 MG ENTERIC TABLET PO (08:23)
[2023-06-14 08:24] VITALS: PULSE 70
[2023-06-14] MEDS: amLODIPine BESYLATE 5 MG TABLET PO (08:24)
[2023-06-14] MEDS: METOPROLOL SUCCINATE EXT REL 100 MG TABCR PO (08:24)
[2023-06-14] MEDS: NYSTATIN OINTMENT 15 GM TUBE 1 APPLIC TOPICAL ×2 (08:24→20:45)
[2023-06-14] MEDS: POTASSIUM CHLORIDE 20 MEQ ER TABLET 40 MEQ PO ×2 (08:48→13:20)
[2023-06-14] MEDS: cefTRIAXone 2 GM/NS 100 ML 2 GM/100 ML BAG IVPB (11:43)
--- NOTE | 2023-06-14 13:35 | P.PNIM_ITS ---
Progress Note: A&P Assessment and Plan (1) Pyelonephritis: Code(s): N12 - Tubulo-interstitial nephritis, not specified as acute or chronic Status: Acute Assessment and Plan: * Presented with feeling weak and tired * CT of the abdomen left kidney with surrounding inflammatory, suspicious for pyelonephritis * Urine culture grew ecoli * Blood cultures positive with ecoli x 2 * Continue ceftriaxone 2 g daily (2) Acute hyponatremia: Code(s): E87.1 - Hypo-osmolality and hyponatremia Status: Acute Assessment and Plan: * Na upon arrival 125 * 06/13/23 122, d/c'd furosemide, ordered FEurea, added NaCl tabs * 06/14/23: FEurea 4.4%, Na improved to 128, IV saline ordered (50 ml/hr x 300 ml), PO KCL for K 3.1 (3) Hypertension: Qualifiers: Hypertension type: primary hypertension Qualified Code(s): I10 - Essential (primary) hypertension Code(s): I10 - Essential (primary) hypertension Status: Acute Assessment and Plan: * 06/14/23 bp controlled * Continue with amlodipine, and HOLD losartan with hydrochlorothiazide (4) Hypothyroidism: Qualifiers: Hypothyroidism type: acquired Qualified Code(s): E03.9 - Hypothyroidism, unspecified Code(s): E03.9 - Hypothyroidism, unspecified Status: Acute Assessment and Plan: * Continue with levothyroxine * TSH 0.081, T4 1.80, T3 0.53 (5) Atrial fibrillation: Qualifiers: Atrial fibrillation type: unspecified Qualified Code(s): I48.91 - Unspecified atrial fibrillation Code(s): I48.91 - Unspecified atrial fibrillation Status: Acute Assessment and Plan: * Heart rate controlled * Rhythm is stable * Continue with Xarelto metoprolol * Continue to trend heart rate * Continue telemetry (6) Acute renal failure: Qualifiers: Acute renal failure type: unspecified Qualified Code(s): N17.9 - Acute kidney failure, unspecified Code(s): N17.9 - Acute kidney failure, unspecified Status: Acute Assessment and Plan: * BUN/Cr 33/1.70, peaked at 1.80 * 06/13/23 creatinine 1.3, 06/14/23: 1.2 (7) Anemia: Qualifiers: Anemia type: iron deficiency Iron deficiency anemia type: inadequate dietary iron intake Qualified Code(s): D50.8 - Other iron deficiency anemias Code(s): D64.9 - Anemia, unspecified Status: Acute Assessment and Plan: * H/H 8.9/28.6 * Lab: iron 14, TIBC 330, % sat 4, Transferrin 181, Ferritin 36.70, B12 867, Folate >20 * Supplement with iron 324mg PO BID * Check stool for occult blood
--- NOTE | 2023-06-14 13:35 | PM.IMPN ---
Progress Note: A&P Assessment and Plan (1) Pyelonephritis: Code(s): N12 - Tubulo-interstitial nephritis, not specified as acute or chronic Status: Acute Assessment and Plan: Presented with feeling weak and tired CT of the abdomen left kidney with surrounding inflammatory, suspicious for pyelonephritis Urine culture grew ecoli Blood cultures positive with ecoli x 2 Continue ceftriaxone 2 g daily (2) Acute hyponatremia: Code(s): E87.1 - Hypo-osmolality and hyponatremia Status: Acute Assessment and Plan: Na upon arrival 125 06/13/23 122, d/c'd furosemide, ordered FEurea, added NaCl tabs 06/14/23: FEurea 4.4%, Na improved to 128, IV saline ordered (50 ml/hr x 300 ml), PO KCL for K 3.1 (3) Hypertension: Qualifiers: Hypertension type: primary hypertension Qualified Code(s): I10 - Essential (primary) hypertension Code(s): I10 - Essential (primary) hypertension Status: Acute Assessment and Plan: 06/14/23 bp controlled Continue with amlodipine, and HOLD losartan with hydrochlorothiazide (4) Hypothyroidism: Qualifiers: Hypothyroidism type: acquired Qualified Code(s): E03.9 - Hypothyroidism, unspecified Code(s): E03.9 - Hypothyroidism, unspecified Status: Acute Assessment and Plan: Continue with levothyroxine TSH 0.081, T4 1.80, T3 0.53 (5) Atrial fibrillation: Qualifiers: Atrial fibrillation type: unspecified Qualified Code(s): I48.91 - Unspecified atrial fibrillation Code(s): I48.91 - Unspecified atrial fibrillation Status: Acute Assessment and Plan: Heart rate controlled Rhythm is stable Continue with Xarelto metoprolol Continue to trend heart rate Continue telemetry (6) Acute renal failure: Qualifiers: Acute renal failure type: unspecified Qualified Code(s): N17.9 - Acute kidney failure, unspecified Code(s): N17.9 - Acute kidney failure, unspecified Status: Acute Assessment and Plan: BUN/Cr 33/1.70, peaked at 1.80 06/13/23 creatinine 1.3, 06/14/23: 1.2 (7) Anemia: Qualifiers: Anemia type: iron deficiency Iron deficiency anemia type: inadequate dietary iron intake Qualified Code(s): D50.8 - Other iron deficiency anemias Code(s): D64.9 - Anemia, unspecified Status: Acute Assessment and Plan: H/H 8.9/28.6 Lab: iron 14, TIBC 330, % sat 4, Transferrin 181, Ferritin 36.70, B12 867, Folate >20 Supplement with iron 324mg PO BID Check stool for occult blood (8) CHF (congestive heart failure): Qualifiers: Heart failure type: diastolic Heart failure chronicity: acute on chronic Qualified Code(s): I50.33 - Acute on chronic diastolic (congestive) heart failure Code(s): I50.9 - Heart failure, unspecified Status: Acute Assessment and Plan: Chronic diastolic heart failure with acute exacerbation due to fluid overload Clinically at baseline 06/13/23 d/c'd furosemide (9) Sepsis: Code(s): A41.9 - Sepsis, unspecified organism Status: Acute Assessment and Plan: At presentation had infection, leukocytosis, MILO, tachycardia, tachypnea Resolved Subjective Date/time seen: 06/14/23 13:35 Interval history: Tired. But feeling better. Tolerating diet. Denied chest pain abdominal pain shortness of breath swelling. Denied abnormal bleeding. Denied focal weakness. Review of Systems Review of Systems: All systems reviewed & are unremarkable except as noted in HPI and below Exam Narrative: HEENT: EOMI, PERRL, sclerae nonicteric, pharyngeal mucosa pink and intact NECK: No JVD, adenopathy, or thyromegaly CHEST: Clear to auscultation. Normal effort. HEART: NL S1/S2, regular, no murmur ABDOMEN: BS+, soft, nontender, no mass, no bruits EXTREMITIES: No cyanosis, edema, or clubbing NEUROLOGIC: CN intact and symmetric to inspection. MUSCUL
[2023-06-14 14:00] VITALS: BP 145/51; PULSE 64; RESP 20; TEMP 36.8; O2SAT 94
[2023-06-14] MEDS: RIVAROXABAN 20 MG TABLET PO (16:16)
[2023-06-14] MEDS: ONDANSETRON INJ 4 MG/2 ML VIAL IV PUSH (18:13)
[2023-06-14 20:00] VITALS: PULSE 64; RESP 20; O2SAT 94
[2023-06-14] MEDS: polyethylene glycoL 3350 17 GM POWD.PACK PO (21:28)
[2023-06-14 21:45] VITALS: BP 152/48; PULSE 64; RESP 14; TEMP 36.4; O2SAT 95
[2023-06-14 23:09] LABS: IFOB Positive Control Positive; Immunochemical Fecal Occult Bl Positive (N)
[2023-06-15] MEDS: LEVOTHYROXINE SODIUM 125 MCG TABLET PO (05:14)
[2023-06-15 06:00] VITALS: BP 147/85; PULSE 64; RESP 20; TEMP 37.4; O2SAT 92
[2023-06-15 06:08] LABS: Hematocrit 29.1 % (37.0-47.0); Hemoglobin 9.2 g/dL (12.0-15.0); Mean Corpuscular HGB Conc 31.6 g/dl (32-36); Mean Corpuscular Hemoglobin 24.1 pg (26-34); Mean Corpuscular Volume 76.2 fl (80-100); Mean Platelet Volume 9.9 fl (7.4-10.4); Platelet Count Result 376 k/mm3 (150-375); Red Blood Count 3.82 M/mm3 (4.2-5.4); Red Cell Distribution Width 16.8 % (11.5-14.5); White Blood Count 12.3 K/mm3 (4.5-10.0)
[2023-06-15 06:09] LABS: Anion Gap 2 mmol/L (8-16); Blood Urea Nitrogen 18 mg/dL (7-17); Calcium 8.2 mg/dL (8.4-10.2); Carbon Dioxide 26 mmol/L (22-30); Chloride 103 mmol/L (98-107); Estimated CRCL calculation 48 ml/min; Estimated Glomerular Filt Rate 60; Glucose 103 mg/dL (65-110); Magnesium 1.9 mg/dL (1.6-2.3); Sodium 131 mmol/L (137-145)
[2023-06-15 09:22] VITALS: BP 136/46; PULSE 61; RESP 14; O2SAT 93
[2023-06-15 09:25] VITALS: PULSE 63
[2023-06-15] MEDS: LOSARTAN POTASSIUM 100 MG TABLET PO (09:25)
[2023-06-15] MEDS: amLODIPine BESYLATE 5 MG TABLET PO (09:25)
[2023-06-15] MEDS: hydroCHLOROthiazide 25 MG TABLET PO (09:25)
[2023-06-15] MEDS: COLESEVELAM 625 MG TABLET 1875 MG PO ×2 (09:25→17:52)
[2023-06-15] MEDS: METOPROLOL SUCCINATE EXT REL 100 MG TABCR PO (09:25)
[2023-06-15] MEDS: EZETIMIBE 10 MG TABLET PO (09:25)
[2023-06-15] MEDS: NYSTATIN OINTMENT 15 GM TUBE 1 APPLIC TOPICAL ×2 (09:26→20:52)
[2023-06-15] MEDS: ONDANSETRON INJ 4 MG/2 ML VIAL IV PUSH (12:37)
[2023-06-15] MEDS: cefTRIAXone 2 GM/NS 100 ML 2 GM/100 ML BAG IVPB (12:37)
--- NOTE | 2023-06-15 12:45 | PM.IMPN ---
Progress Note: A&P Assessment and Plan (1) Pyelonephritis: Code(s): N12 - Tubulo-interstitial nephritis, not specified as acute or chronic Status: Acute Assessment and Plan: Presented with feeling weak and tired CT of the abdomen left kidney with surrounding inflammatory, suspicious for pyelonephritis Urine culture grew ecoli Blood cultures positive with ecoli Change ceftriaxone to PO levaquin trend urine output (2) Hyperlipidemia: Qualifiers: Hyperlipidemia type: moderate mixed hyperlipidemia not requiring statin therapy Qualified Code(s): E78.2 - Mixed hyperlipidemia Code(s): E78.5 - Hyperlipidemia, unspecified Status: Acute Assessment and Plan: Continue with [place] 3 and Zetia (3) Hypertension: Qualifiers: Hypertension type: primary hypertension Qualified Code(s): I10 - Essential (primary) hypertension Code(s): I10 - Essential (primary) hypertension Status: Acute Assessment and Plan: Current BP is 147/85 Continue with amlodipine, and continue losartan with hydrochlorothiazide Trend BP Adjust therapy as indicated (4) Hypothyroidism: Qualifiers: Hypothyroidism type: acquired Qualified Code(s): E03.9 - Hypothyroidism, unspecified Code(s): E03.9 - Hypothyroidism, unspecified Status: Acute Assessment and Plan: Continue with levothyroxine Thyroid 0.081, T4 1.80, T3 0.53 (5) Atrial fibrillation: Qualifiers: Atrial fibrillation type: unspecified Qualified Code(s): I48.91 - Unspecified atrial fibrillation Code(s): I48.91 - Unspecified atrial fibrillation Status: Acute Assessment and Plan: Heart rate controlled Rhythm is stable Continue metoprolol Hold Xarelto for now Continue to trend heart rate Continue telemetry (6) Acute renal failure: Qualifiers: Acute renal failure type: unspecified Qualified Code(s): N17.9 - Acute kidney failure, unspecified Code(s): N17.9 - Acute kidney failure, unspecified Status: Acute Assessment and Plan: BUN/Cr 33/1.70, peaked at 1.80 Current 18/0.90 Restart losartan with hydrochlorothiazide. Avoid nephrotoxic medication. DC IV fluids. Trend labs Trend urine output Urine labs Ur Na <5, Ur K 12.4, Ur urea 596, Ur Creatinine 81.0 Related to fluid overload Fluids stopped with complaints of shortness of breath and possible fluid overload (7) UTI (urinary tract infection): Qualifiers: Urinary tract infection type: acute pyelonephritis Qualified Code(s): N10 - Acute pyelonephritis Code(s): N39.0 - Urinary tract infection, site not specified Status: Acute Assessment and Plan: UA was dirty Urine culture Ecoli Ceftriaxone on board Trend urine output Adjust antibiotics to sensitivities (8) Acute hyponatremia: Code(s): E87.1 - Hypo-osmolality and hyponatremia Status: Acute Assessment and Plan: Na upon arrival 125 Currently 131 Fluids stopped with complaints of shortness of breath Urine labs ordered Consider nephrology if no improvements continue to trend adjust therapy as indicated (9) Anemia: Qualifiers: Anemia type: iron deficiency Iron deficiency anemia type: inadequate dietary iron intake Qualified Code(s): D50.8 - Other iron deficiency anemias Code(s): D64.9 - Anemia, unspecified Status: Acute Assessment and Plan: H/H 8.9/28.6 Unknown type Anemia labs: iron 14, TIBC 330, % sat 4, Transferrin 181, Ferritin 36.70, B12 867, Folate >20 Supplement with iron 324mg PO BID Could be dilution with fluid administration Continue to trend labs Adjust therapy as indicated Transfuse if hgb <7.0 Occult blood positive GI consulted Xarelto and Aspirin on hold for no
--- NOTE | 2023-06-15 12:45 | P.PNIM_ITS ---
Progress Note: A&P Assessment and Plan (1) Pyelonephritis: Code(s): N12 - Tubulo-interstitial nephritis, not specified as acute or chronic Status: Acute Assessment and Plan: * Presented with feeling weak and tired * CT of the abdomen left kidney with surrounding inflammatory, suspicious for pyelonephritis * Urine culture grew ecoli * Blood cultures positive with ecoli * Change ceftriaxone to PO levaquin * trend urine output (2) Hyperlipidemia: Qualifiers: Hyperlipidemia type: moderate mixed hyperlipidemia not requiring statin therapy Qualified Code(s): E78.2 - Mixed hyperlipidemia Code(s): E78.5 - Hyperlipidemia, unspecified Status: Acute Assessment and Plan: * Continue with [place] 3 and Zetia (3) Hypertension: Qualifiers: Hypertension type: primary hypertension Qualified Code(s): I10 - Essential (primary) hypertension Code(s): I10 - Essential (primary) hypertension Status: Acute Assessment and Plan: * Current BP is 147/85 * Continue with amlodipine, and continue losartan with hydrochlorothiazide * Trend BP * Adjust therapy as indicated (4) Hypothyroidism: Qualifiers: Hypothyroidism type: acquired Qualified Code(s): E03.9 - Hyp othyroidism, unspecified Code(s): E03.9 - Hypothyroidism, unspecified Status: Acute Assessment and Plan: * Continue with levothyroxine * Thyroid 0.081, T4 1.80, T3 0.53 (5) Atrial fibrillation: Qualifiers: Atrial fibrillation type: unspecified Qualified Code(s): I48.91 - Unspecified atrial fibrillation Code(s): I48.91 - Unspecified atrial fibrillation Status: Acute Assessment and Plan: * Heart rate controlled * Rhythm is stable * Continue metoprolol * Hold Xarelto for now * Continue to trend heart rate * Continue telemetry (6) Acute renal failure: Qualifiers: Acute renal failure type: unspecified Qualified Code(s): N17.9 - Acute kidney failure, unspecified Code(s): N17.9 - Acute kidney failure, unspecified Status: Acute Assessment and Plan: * BUN/Cr 33/1.70, peaked at 1.80 * Current 18/0.90 * Restart losartan with hydrochlorothiazide. * Avoid nephrotoxic medication. * DC IV fluids. * Trend labs * Trend urine output * Urine labs Ur Na <5, Ur K 12.4, Ur urea 596, Ur Creatinine 81.0 * Related to fluid overload * Fluids stopped with complaints of shortness of breath and possible fluid overload (7) UTI (urinary tract infection): Qualifiers: Urinary tract infection type: acute pyelonephritis Qualified Code(s): N10 - Acute pyelonephritis Code(s): N39.0 - Urinary tract infection, site not specified Status: Acute Assessment and Plan: * UA was dirty * Urine culture Ecoli * Ceftriaxone on board * Trend urine output * Adjust antibiotics to sensitivities (8) Acute hyponatremia: Code(s): E87.1 - Hypo-osmolality and hyponatremia Status: Acute Assessment and Plan: * Na upon arrival 125 * Currently 131 * Fluids stopped with complaints of shortness of breath * Urine labs ordered * Consider nephrology if no improvements * continue to trend * adjust therapy as indicated
--- NOTE | 2023-06-15 13:42 | WPDGICN ---
Assessment and Plan Assessment and plan (1) Anemia: Qualifiers: Anemia type: iron deficiency Iron deficiency anemia type: inadequate dietary iron intake Qualified Code(s): D50.8 - Other iron deficiency anemias Code(s): D64.9 - Anemia, unspecified Status: Acute Assessment and Plan: low but stable hgb, denies overt gib she was admitted with sepsis and e coli bacteremia work up of anemia found occult blood in stools, patient that she is uptodate with her colonoscopy and politely she refused to get one at this point (still weak from pyelonephritis) she says that will follow-up with her pcp (2) Sepsis: Qualifiers: Sepsis type: Escherichia coli Sepsis acute organ dysfunction status: with acute organ dysfunction Severe sepsis acute organ dysfunction type: acute renal failure Acute renal failure type: unspecified Severe sepsis shock status: without septic shock Qualified Code(s): A41.51 - Sepsis due to Escherichia coli [E. coli]; R65.20 - Severe sepsis without septic shock; N17.9 - Acute kidney failure, unspecified Code(s): A41.9 - Sepsis, unspecified organism Status: Acute Assessment and Plan: on treatment, better but still weak (3) Bacteremia: Code(s): R78.81 - Bacteremia Status: Acute Assessment and Plan: e coli infection (4) Acute hyponatremia: Code(s): E87.1 - Hypo-osmolality and hyponatremia Status: Acute (5) Pyelonephritis: Code(s): N12 - Tubulo-interstitial nephritis, not specified as acute or chronic Status: Acute (6) Acute renal failure: Qualifiers: Acute renal failure type: unspecified Qualified Code(s): N17.9 - Acute kidney failure, unspecified Code(s): N17.9 - Acute kidney failure, unspecified Status: Acute Assessment and Plan: improved (7) Occult blood in stools: Code(s): R19.5 - Other fecal abnormalities Status: Acute Assessment and Plan: denies overt gib GI Consult Note Consult date/time: 06/15/23 13:42 Reason for consult: anemia, FOBT + HPI: Loni Stroud is a 83 year old female with history of HTN, heart disease on xarelto. She was admitted 5 days ago with 2 days of generalized weakness, feeling sick and finally diagnosed with pyelonephritis (CT scan reviewed), blood culture positive for E coli and started on antibiotics. Labs on admission showed white count 22.3.? H&H is 10.4 and 32.7.? MCV is 74.5.?Her sodium 125.? Her BUN is 27 creatinine 1.6. Denies abdominal pain or blood in stools, she says that at least had 3 colonoscopies and always unremarkable, last time she was told to wait another 10 years and still not due. Occult blood in stool was positive. Review of Systems Constitutional: Constitutional: Reports fatigue and Reports lethargy Eyes: Eyes: Denies blurry vision ENT: Reports Normal hearing present Cardiovascular: Cardiovascular: Denies chest pain Respiratory: Respiratory: Denies cough Gastrointestinal: Gastrointestinal: Denies abdominal pain Genitourinary: Comments: uti Musculoskeletal: Musculoskeletal: Denies neck pain Integumentary/Breasts: Skin/Breast: Denies rash Neurologic: Denies Abnormal speech present Psychiatric: Psychiatric: Denies behavioral changes [facility] Past Medical History Medical History (Updated 06/15/23 @ 13:46 by Daniel Miranda MD) Atrial fibrillation Coronary artery disease Hyperlipidemia Hypertension Hypothyroidism Occult blood in stools Surgical History Surgical History (Updated 06/11/23 @ 00:46 by Claribel Garza NP) History of cholecystectomy History of percutaneous coronary intervention One stent History of tonsillectomy Family History Family History Father Lung cancer Mother History of heart bypass surgery Social History Social History (Updated 06/11/23 @ 00:47 by Claribel Garza,
[2023-06-15 14:35] VITALS: BP 132/72; PULSE 60; RESP 18; TEMP 36.4; O2SAT 98
[2023-06-15] MEDS: FUROSEMIDE INJ 40 MG/4 ML VIAL IV PUSH (15:02)
[2023-06-15 15:04] VITALS: BP 129/51; PULSE 60; RESP 14; O2SAT 95
[2023-06-15] MEDS: FERROUS GLUCONATE 324 MG TABLET PO (17:53)
[2023-06-15 20:01] VITALS: BP 146/60; PULSE 60; RESP 20; TEMP 36.6; O2SAT 97
[2023-06-16 05:19] LABS: Hematocrit 29.2 % (37.0-47.0); Hemoglobin 9.1 g/dL (12.0-15.0); Mean Corpuscular HGB Conc 31.2 g/dl (32-36); Mean Corpuscular Hemoglobin 23.8 pg (26-34); Mean Corpuscular Volume 76.2 fl (80-100); Mean Platelet Volume 9.2 fl (7.4-10.4); Platelet Count Result 436 k/mm3 (150-375); Red Blood Count 3.83 M/mm3 (4.2-5.4); Red Cell Distribution Width 16.5 % (11.5-14.5); White Blood Count 12.6 K/mm3 (4.5-10.0)
[2023-06-16 05:21] VITALS: BP 148/48; PULSE 57; RESP 18; TEMP 36.6; O2SAT 91
--- NOTE | 2023-06-16 05:27 | PC.NURSE ---
On 06/15/23-06/16/23, the license pending RN, Garett Velez, provided care and completed [employer] documentation on this patient. I have reviewed the RN's documentation and agree with the findings.
[2023-06-16 05:28] LABS: Anion Gap 3 mmol/L (8-16); Blood Urea Nitrogen 15 mg/dL (7-17); Calcium 8.4 mg/dL (8.4-10.2); Carbon Dioxide 30 mmol/L (22-30); Chloride 99 mmol/L (98-107); Estimated CRCL calculation 48 ml/min; Estimated Glomerular Filt Rate 60; Glucose 104 mg/dL (65-110); Potassium 3.5 mmol/L (3.4-5.0); Sodium 132 mmol/L (137-145)
[2023-06-16] MEDS: LEVOTHYROXINE SODIUM 125 MCG TABLET PO (05:29)
[2023-06-16 05:34] LABS: NT Pro B Type Natriuretic Pept 2960 pg/mL (19.9-100)
--- NOTE | 2023-06-16 06:38 | P.PNIM_ITS ---
Progress Note: A&P Assessment and Plan (1) Pyelonephritis: Code(s): N12 - Tubulo-interstitial nephritis, not specified as acute or chronic Status: Acute Assessment and Plan: * Presented with feeling weak and tired * CT of the abdomen left kidney with surrounding inflammatory, suspicious for pyelonephritis * Urine culture grew ecoli * Blood cultures positive with ecoli * Change ceftriaxone to PO levaquin until 06/20/23 * trend urine output (2) Hyperlipidemia: Qualifiers: Hyperlipidemia type: moderate mixed hyperlipidemia not requiring statin therapy Qualified Code(s): E78.2 - Mixed hyperlipidemia Code(s): E78.5 - Hyperlipidemia, unspecified Status: Acute Assessment and Plan: * Continue with [place] 3 and Zetia (3) Hypertension: Qualifiers: Hypertension type: primary hypertension Qualified Code(s): I10 - E ssential (primary) hypertension Code(s): I10 - Essential (primary) hypertension Status: Acute Assessment and Plan: * Current BP is 148/48 * Continue with amlodipine, and continue losartan with hydrochlorothiazide * Trend BP * Adjust therapy as indicated (4) Hypothyroidism: Qualifiers: Hypothyroidism type: acquired Qualified Code(s): E03.9 - Hypothyroidism, unspecified Code(s): E03.9 - Hypothyroidism, unspecified Status: Acute Assessment and Plan: * Continue with levothyroxine * Thyroid 0.081, T4 1.80, T3 0.53 (5) Atrial fibrillation: Qualifiers: Atrial fibrillation type: unspecified Qualified Code(s): I48.91 - Unspecified atrial fibrillation Code(s): I48.91 - Unspecified atrial fibrillation Status: Acute Assessment and Plan: * Heart rate controlled, currently at 57 * Rhythm is stable * Continue metoprolol * Hold Xarelto for now * Continue to trend heart rate * Continue telemetry (6) Acute renal failure: Qualifiers: Acute renal failure type: unspecified Qualified Code(s): N17.9 - Acute kidney failure, unspecified Code(s): N17.9 - Acute kidney failure, unspecified Status: Acute Assessment and Plan: * BUN/Cr 33/1.70, peaked at 1.80 * Current 9/0.70 * Restart losartan with hydrochlorothiazide. * Avoid nephrotoxic medication. * DC IV fluids. * Trend labs * Trend urine output * Urine labs Ur Na <5, Ur K 12.4, Ur urea 596, Ur Creatinine 81.0 * Related to fluid overload * Resolved (7) UTI (urinary tract infection): Qualifiers: Urinary tract infection type: acute pyelonephritis Qualified Code(s): N10 - Acute pyelonephritis Code(s): N39.0 - Urinary tract infection, site not specified Status: Acute Assessment and Plan: * UA was dirty * Urine culture Ecoli * Ceftriaxone on board, changed to PO levaquin * Trend urine output * Adjust antibiotics to sensitivities (8) Acute hyponatremia: Code(s): E87.1 - Hypo-osmolality and hyponatremia Status: Acute Assessment and Plan: * Na upon arrival 125 * Currently 132 * Most likely related to hypervolemia * Urine labs ordered * Consider nephrology if no improvements * continue to trend * adjust therapy as indicated (9) Anemia: Qual
--- NOTE | 2023-06-16 06:38 | PM.IMPN ---
Progress Note: A&P Assessment and Plan (1) Pyelonephritis: Code(s): N12 - Tubulo-interstitial nephritis, not specified as acute or chronic Status: Acute Assessment and Plan: Presented with feeling weak and tired CT of the abdomen left kidney with surrounding inflammatory, suspicious for pyelonephritis Urine culture grew ecoli Blood cultures positive with ecoli Change ceftriaxone to PO levaquin until 06/20/23 trend urine output (2) Hyperlipidemia: Qualifiers: Hyperlipidemia type: moderate mixed hyperlipidemia not requiring statin therapy Qualified Code(s): E78.2 - Mixed hyperlipidemia Code(s): E78.5 - Hyperlipidemia, unspecified Status: Acute Assessment and Plan: Continue with [place] 3 and Zetia (3) Hypertension: Qualifiers: Hypertension type: primary hypertension Qualified Code(s): I10 - Essential (primary) hypertension Code(s): I10 - Essential (primary) hypertension Status: Acute Assessment and Plan: Current BP is 148/48 Continue with amlodipine, and continue losartan with hydrochlorothiazide Trend BP Adjust therapy as indicated (4) Hypothyroidism: Qualifiers: Hypothyroidism type: acquired Qualified Code(s): E03.9 - Hypothyroidism, unspecified Code(s): E03.9 - Hypothyroidism, unspecified Status: Acute Assessment and Plan: Continue with levothyroxine Thyroid 0.081, T4 1.80, T3 0.53 (5) Atrial fibrillation: Qualifiers: Atrial fibrillation type: unspecified Qualified Code(s): I48.91 - Unspecified atrial fibrillation Code(s): I48.91 - Unspecified atrial fibrillation Status: Acute Assessment and Plan: Heart rate controlled, currently at 57 Rhythm is stable Continue metoprolol Hold Xarelto for now Continue to trend heart rate Continue telemetry (6) Acute renal failure: Qualifiers: Acute renal failure type: unspecified Qualified Code(s): N17.9 - Acute kidney failure, unspecified Code(s): N17.9 - Acute kidney failure, unspecified Status: Acute Assessment and Plan: BUN/Cr 33/1.70, peaked at 1.80 Current 9/0.70 Restart losartan with hydrochlorothiazide. Avoid nephrotoxic medication. DC IV fluids. Trend labs Trend urine output Urine labs Ur Na <5, Ur K 12.4, Ur urea 596, Ur Creatinine 81.0 Related to fluid overload Resolved (7) UTI (urinary tract infection): Qualifiers: Urinary tract infection type: acute pyelonephritis Qualified Code(s): N10 - Acute pyelonephritis Code(s): N39.0 - Urinary tract infection, site not specified Status: Acute Assessment and Plan: UA was dirty Urine culture Ecoli Ceftriaxone on board, changed to PO levaquin Trend urine output Adjust antibiotics to sensitivities (8) Acute hyponatremia: Code(s): E87.1 - Hypo-osmolality and hyponatremia Status: Acute Assessment and Plan: Na upon arrival 125 Currently 132 Most likely related to hypervolemia Urine labs ordered Consider nephrology if no improvements continue to trend adjust therapy as indicated (9) Anemia: Qualifiers: Anemia type: iron deficiency Iron deficiency anemia type: inadequate dietary iron intake Qualified Code(s): D50.8 - Other iron deficiency anemias Code(s): D64.9 - Anemia, unspecified Status: Acute Assessment and Plan: H/H 9.1/29.2 Unknown type Anemia labs: iron 14, TIBC 330, % sat 4, Transferrin 181, Ferritin 36.70, B12 867, Folate >20 Supplement with iron 324mg PO BID Could be dilution with fluid administration Continue to trend labs Adjust therapy as indicated Transfuse if hgb <7.0 Occult blood positive GI consulted Xarelto and Aspirin restarted (10) CHF (congestive heart renard
[2023-06-16] MEDS: FERROUS GLUCONATE 324 MG TABLET PO (09:00)
[2023-06-16] MEDS: hydroCHLOROthiazide 25 MG TABLET PO (09:01)
[2023-06-16] MEDS: COLESEVELAM 625 MG TABLET 1875 MG PO (09:01)
[2023-06-16] MEDS: levoFLOXacin 750 MG TABLET PO (09:01)
[2023-06-16] MEDS: EZETIMIBE 10 MG TABLET PO (09:01)
[2023-06-16] MEDS: LOSARTAN POTASSIUM 100 MG TABLET PO (09:02)
[2023-06-16] MEDS: FUROSEMIDE INJ 40 MG/4 ML VIAL IV PUSH (09:05)
[2023-06-16] MEDS: ONDANSETRON INJ 4 MG/2 ML VIAL IV PUSH (09:05)
--- NOTE | 2023-06-16 09:06 | PCPTNOTE ---
attempted PT treatment, pt is with nursing taking meds and BP, and she has not had breakfast yet--just arrived. She requested PT come at a later time.
[2023-06-16 09:07] VITALS: BP 158/66; PULSE 67; RESP 14; O2SAT 93
[2023-06-16] MEDS: amLODIPine BESYLATE 5 MG TABLET PO (09:07)
[2023-06-16 09:08] VITALS: PULSE 65
[2023-06-16] MEDS: METOPROLOL SUCCINATE EXT REL 100 MG TABCR PO (09:08)
[2023-06-16] MEDS: NYSTATIN OINTMENT 15 GM TUBE 1 APPLIC TOPICAL (09:08)
[2023-06-16 09:20] VITALS: PULSE 62; O2SAT 95
--- NOTE | 2023-06-16 09:35 | PCPTNOTE ---
attempted PT treatment at this time, pt sitting up in chair with her at her side. She refused, stated she was nauseated and not feeling well.
--- NOTE | 2023-06-16 11:45 | PCPTNOTE ---
Attemtped to see pt, pt declined stating she just got back into bed. She noted she started Lasik and she has been up and down all morning and is really tired. She feels if she can rest then she will try later this afternoon.
[2023-06-16] MEDS: ASPIRIN 81 MG ENTERIC TABLET PO (12:05)
--- NOTE | 2023-06-16 13:15 | P.DS_ITS ---
DS: Admitting Diagnosis Discharge Date 06/16/23 1315 Admitting Diagnosis UTI, sepsis, bacteremia DS: Discharge Diagnosis Discharge Diagnosis (1) Pyelonephritis: Code(s): N12 - Tubulo-interstitial nephritis, not specified as acute or chronic Status: Acute Assessment and Plan: * Presented with feeling weak and tired * CT of the abdomen left kidney with surrounding inflammatory, suspicious for pyelonephritis * Urine culture grew ecoli * Blood cultures positive with ecoli * Change ceftriaxone to PO levaquin until 06/20/23 * trend urine output (2) Hyperlipidemia: Qualifiers: Hyperlipidemia type: moderate mixed hyperlipidemia not requiring statin therapy Qualified Code(s): E78.2 - Mixed hyperlipidemia Code(s): E78.5 - Hyperlipidemia, unspecified Status: Acute Assessment and Plan: * Continue with [place] 3 and Zetia (3) Hypertension: Qualifiers: Hypertension type: primary hypertension Qualified Code(s): I10 - Essential (primary) hypertension Code(s): I10 - Essential (primary) hypertension Status: Acute Assessment and Plan: * Current BP is 148/48 * Continue with amlodipine, and continue losartan with hydrochlorothiazide * Trend BP * Adjust therapy as indicated (4) Hypothyroidism: Qualifiers: Hypothyroidism type: acquired Qualified Code(s): E03.9 - Hypothyroidism, unspecified Code(s): E03.9 - Hypothyroidism, unspecified Status: Acute Assessment and Plan: * Continue with levothyroxine * Thyroid 0.081, T4 1.80, T3 0.53 (5) Atrial fibrillation: Qualifiers: Atrial fibrillation type: unspecified Qualified Code(s): I48.91 - Unspecified atrial fibrillation Code(s): I48.91 - Unspecified atrial fibrillation Status: Acute Assessment and Plan: * Heart rate controlled, currently at 57 * Rhythm is stable * Continue metoprolol * Hold Xarelto for now * Continue to trend heart rate * Continue telemetry (6) Acute renal failure: Qualifiers: Acute renal failure type: unspecified Qualified Code(s): N17.9 - Acute kidney failure, unspecified Code(s): N17.9 - Acute kidney failure, unspecified Status: Acute Assessment and Plan: * BUN/Cr 33/1.70, peaked at 1.80 * Current 9/0.70 * Restart losartan with hydrochlorothiazide. * Avoid nephrotoxic medication. * DC IV fluids. * Trend labs * Trend urine output * Urine labs Ur Na <5, Ur K 12.4, Ur urea 596, Ur Creatinine 81.0 * Related to fluid overload * Resolved (7) UTI (urinary tract infection): Qualifiers: Urinary tract infection type: acute pyelonephritis Qualified Code(s): N10 - Acute pyelonephritis Code(s): N39.0 - Urinary tract infection, site not specified Status: Acute Assessment and Plan: * UA was dirty * Urine culture Ecoli * Ceftriaxone on board, changed to PO levaquin * Trend urine output * Adjust antibiotics to sensitivities (8) Acute hyponatremia: Code(s): E87.1 - Hypo-osmolality and hyponatremia Status: Acute Assessment and Plan: * Na upon arrival 125 * Currently 132 * Most likely related to hypervolemia * Urine labs ordered * Consider nephrology if no improvements * continu
--- NOTE | 2023-06-16 13:15 | PM.DS ---
DS: Admitting Diagnosis Discharge Date 06/16/23 1315 Admitting Diagnosis UTI, sepsis, bacteremia DS: Discharge Diagnosis Discharge Diagnosis (1) Pyelonephritis: Code(s): N12 - Tubulo-interstitial nephritis, not specified as acute or chronic Status: Acute Assessment and Plan: Presented with feeling weak and tired CT of the abdomen left kidney with surrounding inflammatory, suspicious for pyelonephritis Urine culture grew ecoli Blood cultures positive with ecoli Change ceftriaxone to PO levaquin until 06/20/23 trend urine output (2) Hyperlipidemia: Qualifiers: Hyperlipidemia type: moderate mixed hyperlipidemia not requiring statin therapy Qualified Code(s): E78.2 - Mixed hyperlipidemia Code(s): E78.5 - Hyperlipidemia, unspecified Status: Acute Assessment and Plan: Continue with [place] 3 and Zetia (3) Hypertension: Qualifiers: Hypertension type: primary hypertension Qualified Code(s): I10 - Essential (primary) hypertension Code(s): I10 - Essential (primary) hypertension Status: Acute Assessment and Plan: Current BP is 148/48 Continue with amlodipine, and continue losartan with hydrochlorothiazide Trend BP Adjust therapy as indicated (4) Hypothyroidism: Qualifiers: Hypothyroidism type: acquired Qualified Code(s): E03.9 - Hypothyroidism, unspecified Code(s): E03.9 - Hypothyroidism, unspecified Status: Acute Assessment and Plan: Continue with levothyroxine Thyroid 0.081, T4 1.80, T3 0.53 (5) Atrial fibrillation: Qualifiers: Atrial fibrillation type: unspecified Qualified Code(s): I48.91 - Unspecified atrial fibrillation Code(s): I48.91 - Unspecified atrial fibrillation Status: Acute Assessment and Plan: Heart rate controlled, currently at 57 Rhythm is stable Continue metoprolol Hold Xarelto for now Continue to trend heart rate Continue telemetry (6) Acute renal failure: Qualifiers: Acute renal failure type: unspecified Qualified Code(s): N17.9 - Acute kidney failure, unspecified Code(s): N17.9 - Acute kidney failure, unspecified Status: Acute Assessment and Plan: BUN/Cr 33/1.70, peaked at 1.80 Current 9/0.70 Restart losartan with hydrochlorothiazide. Avoid nephrotoxic medication. DC IV fluids. Trend labs Trend urine output Urine labs Ur Na <5, Ur K 12.4, Ur urea 596, Ur Creatinine 81.0 Related to fluid overload Resolved (7) UTI (urinary tract infection): Qualifiers: Urinary tract infection type: acute pyelonephritis Qualified Code(s): N10 - Acute pyelonephritis Code(s): N39.0 - Urinary tract infection, site not specified Status: Acute Assessment and Plan: UA was dirty Urine culture Ecoli Ceftriaxone on board, changed to PO levaquin Trend urine output Adjust antibiotics to sensitivities (8) Acute hyponatremia: Code(s): E87.1 - Hypo-osmolality and hyponatremia Status: Acute Assessment and Plan: Na upon arrival 125 Currently 132 Most likely related to hypervolemia Urine labs ordered Consider nephrology if no improvements continue to trend adjust therapy as indicated (9) Anemia: Qualifiers: Anemia type: iron deficiency Iron deficiency anemia type: inadequate dietary iron intake Qualified Code(s): D50.8 - Other iron deficiency anemias Code(s): D64.9 - Anemia, unspecified Status: Acute Assessment and Plan: H/H 9.1/29.2 Unknown type Anemia labs: iron 14, TIBC 330, % sat 4, Transferrin 181, Ferritin 36.70, B12 867, Folate >20 Supplement with iron 324mg PO BID Could be dilution with fluid administration Continue to trend labs Adjust therapy as indicated Transfuse if hgb <7.0 Oc
[2023-06-16 13:51] LABS: Osmolality, Urine 308 mOsm/kg (50-1200)
[2023-06-16 13:55] VITALS: BP 148/53; PULSE 68; RESP 18; TEMP 36.1; O2SAT 97
== END 2023-06-16 17:00 | disposition home health service (06) | DRG 871 ==
LOC: ANHED 14:46 → ANH2MED 15:36
PROVIDERS: Internal Medicine; Nurse Practitioner; Admitting Provider Chiropractor; Emergency Provider Emergency Medicine; Visit Provider Nurse Practitioner
DX: A41.51 Sepsis due to Escherichia coli [E. coli] (principal); I50.33 Acute on chronic diastolic (congestive) heart failure; N17.9 Acute kidney failure, unspecified; N10 Acute pyelonephritis; E87.1 Hypo-osmolality and hyponatremia; R65.20 Severe sepsis without septic shock; B96.20 Unspecified Escherichia coli [E. coli] as the cause of diseases classified elsewhere; I11.0 Hypertensive heart disease with heart failure; E78.5 Hyperlipidemia, unspecified; E03.9 Hypothyroidism, unspecified; I25.10 Atherosclerotic heart disease of native coronary artery without angina pectoris; I48.91 Unspecified atrial fibrillation; D50.8 Other iron deficiency anemias; D53.9 Nutritional anemia, unspecified; Z90.49 Acquired absence of other specified parts of digestive tract; Z95.5 Presence of coronary angioplasty implant and graft; Z20.822 Contact with and (suspected) exposure to COVID-19
CPT/HCPCS: 36415; 71045; 74177; 80048; 80053; 81001; 82274; 82533; 82570; 82607; 82728; 82746; 83540; 83550; 83605; 83690; 83735; 83880; 83935; 84133; 84300; 84439; 84443; 84466; 84480; 84540; 85025; 85027; 87040; 87077; 87086; 87088; 87186; 87636; 93005; 96361; 96365; 96375; 96376; 97110; 97116; 97161; 97165; 97530; 97535; 99285; A9270; G0378; J0696; J1940; J2405; J7030; Q9967

== ENCOUNTER 2024-06-21 18:24 | Emergency (ER) | payer MEDICARE, SELFPAY ==
[2024-06-21 18:25] VITALS: BP 152/86; PULSE 70; RESP 16; TEMP 36.6; O2SAT 98
[2024-06-21 20:03] VITALS: BP 190/81; PULSE 86; RESP 17; TEMP 36.6; O2SAT 100
[2024-06-21] MEDS: OXYMETAZOLINE HCL 0.05% NAS 15 ML BTL (*BKC) 1 SPRAY NASAL (20:07)
--- NOTE | 2024-06-21 20:24 | ED.EPISTAXIS ---
HPI - Epistaxis General Chief complaint: Epistaxis Stated complaint: nose bleed on blood thinner Time Seen by Provider: 06/21/24 20:05 Source: patient Mode of arrival: ambulatory Limitations: no limitations History of Present Illness HPI Narrative: This is a 84 year old female that presents to the ER for nosebleed. Reports she was just sitting at dinner and started to feel a tickle in her nose. Reports she then noticed she was bleeding. Report she takes Xarelto for history of afib. The bleeding stopped upon arrival to the ER. Related Data Home Medications Medication Instructions Recorded Confirmed amlodipine 5 mg tablet 5 mg PO DAILY 06/10/23 06/10/23 aspirin 81 mg tablet,delayed 81 mg PO DAILY 06/10/23 06/10/23 release cinnamon bark 500 mg capsule 1,000 mg PO DAILY 06/10/23 06/10/23 (Cinnamon) colesevelam 625 mg tablet 1,875 mg PO BID 06/10/23 06/10/23 ezetimibe 10 mg tablet 10 mg PO DAILY 06/10/23 06/10/23 levothyroxine 125 mcg tablet 125 mcg PO DAILY 06/10/23 06/10/23 (Synthroid) losartan 100 1 tablet PO DAILY 06/10/23 06/10/23 mg-hydrochlorothiazide 25 mg tablet metoprolol succinate 100 mg 100 mg PO DAILY 06/10/23 06/10/23 tablet,extended release 24 hr omega-3s 360 ku-asf-izx-fish oil 1 cap PO DAILY 06/10/23 06/10/23 1,200 mg-D3 1,000 unit capsule (Fish Oil-Vit D3) rivaroxaban 20 mg tablet (Xarelto) 20 mg PO DAILY 06/10/23 06/10/23 Allergies Allergy/AdvReac Type Severity Reaction Status Date / Time Sulfa (Sulfonamide Allergy Intermediate Hives / Verified 06/10/23 15:24 Antibiotics) Red Face azithromycin Allergy Mild Rash Verified 06/10/23 15:24 clavulanic acid Allergy Mild Swelling Verified 06/11/23 12:34 lisinopril Allergy Mild Cough Verified 06/10/23 15:24 Penicillins Allergy Mild Swelling Verified 06/11/23 12:34 amoxicillin Allergy Unknown Unknown Verified 06/11/23 12:34 BETALACTAMASEIN Allergy Mild Swelling Uncoded 06/11/23 12:34 Review of Systems Review of Systems: CONSTITUTIONAL: Denies fever ENT: Reports epistaxis All systems reviewed & are unremarkable except as noted in HPI and below PMFSH Past Medical History Medical History (Updated 06/21/24 @ 21:30 by Marci Louis PA-C) Atrial fibrillation Coronary artery disease Hyperlipidemia Hypertension Hypothyroidism Occult blood in stools Surgical History Surgical History (Updated 06/11/23 @ 00:46 by Claribel Garza NP) History of cholecystectomy History of percutaneous coronary intervention One stent History of tonsillectomy Family History Family History Father Lung cancer Mother History of heart bypass surgery Social History Social History (Updated 06/11/23 @ 00:47 by Claribel Garza NP) Social History: She lives with her and has 2 children. She is a lifelong nonsmoker. No alcohol marijuana or illicit drugs. 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 Code status full code Smoking status: Never smoker Second hand tobacco smoke exposure: No Alcohol intake: never Substance use: never Lack of Transportation: No Lack of Food: Never True Current Housing: I Have Housing Concerned About Future Housing: No Difficulty Paying Gas/Electric Bills: No Difficulty Paying for Meds: No Currently Unemployed: No Education: Bachelor's Degree Difficulty w/ Childcare or Family Care: No Spiritual care concerns: No Exam Narrative: GENERAL: Well-appearing, well-nourished, and in no acute distress. HEAD: Normocephalic, atraumatic. EYES: EOMI. ENT: No active epistaxis. Left nare with a very small area that appears friable. Mucous membranes moist. Oropharynx without tonsillar hypertrophy exudate or other lesions. CHEST: No respiratory distress HEART: Regular rate EXTREMITIES: Normal range of motion. No edema. SKIN: Warm, dry, no rash. NEURO: No focal deficits. Alert and oriented x3.
[2024-06-21 21:16] VITALS: PULSE 106
[2024-06-21] MEDS: METOPROLOL SUCCINATE EXT REL 100 MG TABCR PO (21:16)
[2024-06-21] MEDS: amLODIPine BESYLATE 5 MG TABLET PO (21:16)
[2024-06-21] MEDS: LOSARTAN POTASSIUM 100 MG TABLET PO (21:16)
[2024-06-21 21:41] VITALS: BP 154/55; PULSE 87; RESP 16; O2SAT 99
== END 2024-06-21 21:42 | disposition home or self-care (01) ==
PROVIDERS: Emergency Provider Physician Assistant
DX: R04.0 Epistaxis (principal); I48.91 Unspecified atrial fibrillation; I25.10 Atherosclerotic heart disease of native coronary artery without angina pectoris; I10 Essential (primary) hypertension; E78.5 Hyperlipidemia, unspecified; E03.9 Hypothyroidism, unspecified; Z90.49 Acquired absence of other specified parts of digestive tract; Z79.01 Long term (current) use of anticoagulants; Z79.82 Long term (current) use of aspirin; Z79.899 Other long term (current) drug therapy
CPT/HCPCS: 99283; A9270

== ENCOUNTER 2024-07-13 05:02 | Inpatient (IN) | payer MEDICARE, SELFPAY ==
[2024-07-13] VITALS (16 sets, daily range): BP systolic 133–149; BP diastolic 45–84; PULSE 59–79; RESP 14–22; TEMP 36.6–36.8; O2SAT 94–100
--- NOTE | 2024-07-13 | ECHO_ITS ---
Patient Info Name: Loni Stroud Age: 84 years : 1940 Gender: Female Ht: 64 in Wt: 220 lbs BSA: 2.17 m2 HR: 79 bpm BP: 138 / 84 mmHg Heart Rhythm: Sinus Rhythm Technical Quality: Good Exam Date: 07/13/2024 2:01 PM Exam Location: Echo Lab Patient Status: Inpatient Admit Date: 07/13/2024 Staff Ordering Physician: Dottie Carlson MD Plant Assigner: Danuta Parson RDCS Attending Provider: Michelle Riddle MD Exam Type: CA echo doppler color flow Study Info Indications - chf, sob Complete two-dimensional, color flow and Doppler transthoracic echocardiogram is performed. Summary 1. Left ventricular chamber dimension is normal. 2. Left ventricular systolic function is normal, estimated at 60-65%. 3. Right ventricular systolic function is normal. 4. Left atrial chamber dimension is mildly enlarged. 5. There is mild mitral valve regurgitation. 6. There is mild tricuspid valve regurgitation. Left Ventricle Left ventricular chamber dimension is normal. Left ventricular systolic function is normal, estimated at 60-65%. There is no increased left ventricular wall thickness. Right Ventricle Linear artifact in right ventricle suggestive of catheter(s), pacemaker lead(s), or ICD lead(s). Right ventricular chamber dimension is normal. Right ventricular systolic function is normal. Left Atria Left atrial chamber dimension is mildly enlarged. Right Atria Linear artifact in the right atrium suggestive of catheter(s), pacemaker lead(s), or ICD lead(s). Right atrial chamber dimension is normal. Atrial Septum Intact interatrial septum visualized by color flow imaging. Aortic Valve The aortic valve is not well visualized. There is no aortic valve stenosis. There is no aortic valve regurgitation. There is mild aortic valve calcification. Pulmonic Valve The pulmonic valve is not well visualized. Mitral Valve There is mild mitral valve regurgitation. Tricuspid Valve There is mild tricuspid valve regurgitation. Pericardium/Pleural There is no pericardial effusion. Inferior Vena Cava Normal inferior vena cava with >50% collapse upon inspiration consistent with normal right atrial pressure, 3 mmHg. Aorta The aortic root size at the sinus of Valsalva is normal. Left Ventricular Outflow Tract Name Value Normal LVOT 2D LVOT Diameter 1.8 cm LVOT Doppler LVOT Peak Gradient 5 mmHg LVOT Mean Gradient 3 mmHg LVOT VTI 28 cm LVOT VTI/AV VTI Ratio 0.8 LVOT Stroke Volume 70 ml LVOT CO 4.1 l/min LVOT CI 1.9 l/min/m2 Pulmonic Valve Name Value Normal PV Doppler PV Peak Gradient 2 mmHg Mitral Valve Name Value
--- NOTE | ~2024-07-13 | XR_ITS ---
Portable chest x-ray Comparison: 06/11/2023 Clinical History: Shortness of breath Findings: Possible minimal bibasilar pulmonary edema. Cardiomediastinal silhouette is stable, with pacemaker device. Bones and soft tissues are unremarkable. Impression: Possible minimal bibasilar pulmonary edema. Reviewed, dictated and finalized at [facility]. Impression: Possible minimal bibasilar pulmonary edema.
--- NOTE | 2024-07-13 05:06 | ECG_ITS ---
Test Date: 2024-07-13 05:09:06 Measurements Intervals [place] Rate: 61 P: 175 TN: 222 QRS: 1 QRSD: 95 T: 56 QT: 412 QTc: 418 Interpretive Statements ELECTRONIC ATRIAL PACEMAKER DELAYED PRECORDIAL R/S TRANSITION BORDERLINE ST ABNORMALITY- LAT/HIGH LAT LEADS BORDERLINE ECG No previous ECG available for comparison Electronically Signed On 07-13-2024 06:43:48 CDT by Wilbur Bone D.O.
[2024-07-13 05:21] LABS: Basophils Absolute Auto 0.1 K/mm3 (0.0-0.1); Basophils Percent Auto 0.4 % (0.2-1.2); Eosinophils Absolute Auto 0.2 K/mm3 (0-0.3); Eosinophils Percent Auto 0.9 % (0-4.4); Hematocrit 30.5 % (37.0-47.0); Hemoglobin 8.9 g/dL (12.0-15.0); Immature Granulocyte Absolute 0.09 K/mm3 (0.00-0.031); Immature Granulocyte Percent A 0.4 % (0-0.5); Lymphocytes Absolute Auto 3.79 K/mm3 (0.9-3.2); Lymphocytes Percent Auto 16.9 % (18.3-44.2); Mean Corpuscular HGB Conc 29.2 g/dl (32-36); Mean Corpuscular Volume 71.9 fl (80-100); Mean Platelet Volume 9.6 fl (7.4-10.4); Monocytes Absolute Auto 1.3 K/mm3 (0.1-0.6); Monocytes Percent Auto 5.9 % (2.6-8.5); Neutrophils Absolute Auto 16.9 K/mm3 (1.3-6.7); Neutrophils Percent Auto 75.5 % (45.5-73.1); Platelet Count Result 386 k/mm3 (150-375); Red Blood Count 4.24 M/mm3 (4.2-5.4); Red Cell Distribution Width 17.5 % (11.5-14.5); White Blood Count 22.4 K/mm3 (4.5-10.0)
--- NOTE | 2024-07-13 05:40 | ED.GENADULT ---
HPI - General Adult General Chief complaint: Shortness of Breath/Dyspnea Stated complaint: SHORT OF BREATH Time Seen by Provider: 07/13/24 05:10 History of Present Illness HPI narrative: Patient is an 84-year-old female who presents to the emergency department this morning via EMS due to shortness of breath. EMS states that initially patient's oxygen levels were noted to be in the low 80s she was placed on 4 L nasal cannula with improvement of her oxygenation to 98%. Patient was also noted to be hypertensive with a blood pressure of 200/80 and was administered 1 sublingual nitroglycerin with improvement of her blood pressure to 150 over 70. Patient states that she has been having worsening shortness of breath for the past 2 days. Patient denies any history of COPD with admits to history of CHF and atrial fibrillation and is on Xarelto for her AFib. Patient states that her shortness of breath started after returning from a road trip. Patient states that she saw her primary care physician on Thursday and her oxygen level was normal at 99% on room air. Patient states that she has never had any issues with her lungs. She denies any URI symptoms or flu-like symptoms, denies any fevers or chills at home, denies any chest pain or any abdominal pain. No additional symptoms or concerns at this time. Related Data Home Medications Medication Instructions Recorded Confirmed amlodipine 5 mg tablet 5 mg PO DAILY 06/10/23 06/10/23 aspirin 81 mg tablet,delayed 81 mg PO DAILY 06/10/23 06/10/23 release cinnamon bark 500 mg capsule 1,000 mg PO DAILY 06/10/23 06/10/23 (Cinnamon) colesevelam 625 mg tablet 1,875 mg PO BID 06/10/23 06/10/23 ezetimibe 10 mg tablet 10 mg PO DAILY 06/10/23 06/10/23 levothyroxine 125 mcg tablet 125 mcg PO DAILY 06/10/23 06/10/23 (Synthroid) losartan 100 1 tablet PO DAILY 06/10/23 06/10/23 mg-hydrochlorothiazide 25 mg tablet metoprolol succinate 100 mg 100 mg PO DAILY 06/10/23 06/10/23 tablet,extended release 24 hr omega-3s 360 ip-erb-dvq-fish oil 1 cap PO DAILY 06/10/23 06/10/23 1,200 mg-D3 1,000 unit capsule (Fish Oil-Vit D3) rivaroxaban 20 mg tablet (Xarelto) 20 mg PO DAILY 06/10/23 06/10/23 Allergies Allergy/AdvReac Type Severity Reaction Status Date / Time Sulfa (Sulfonamide Allergy Intermediate Hives / Verified 07/13/24 05:17 Antibiotics) Red Face azithromycin Allergy Mild Rash Verified 07/13/24 05:17 clavulanic acid Allergy Mild Swelling Verified 07/13/24 05:17 lisinopril Allergy Mild Cough Verified 07/13/24 05:17 Penicillins Allergy Mild Swelling Verified 07/13/24 05:17 amoxicillin Allergy Unknown Unknown Verified 07/13/24 05:17 BETALACTAMASEIN Allergy Mild Swelling Uncoded 06/11/23 12:34 Review of Systems Review of Systems: All systems are reviewed and are negative unless stated otherwise in the HPI. [facility] Past Medical History Medical History Atrial fibrillation Coronary artery disease Hyperlipidemia Hypertension Hypothyroidism Occult blood in stools Surgical History Surgical History History of cholecystectomy History of percutaneous coronary intervention One stent History of tonsillectomy Family History Family History Father Lung cancer Mother History of heart bypass surgery Social History Social History Social History: She lives with her and has 2 children. She is a lifelong nonsmoker. No alcohol marijuana or illicit drugs. Her is a [employer] mergers and acquisitions consultant for healthcare. She is retired. Code status full code Smoking status: Never smoker Second hand tobacco smoke exposure: No Alcohol intake: never Substance use: never Lack of Transportation: No Lack of Food: Never True Current Housing: I Have Housing Conc
[2024-07-13 05:44] LABS: Alanine Aminotransferase 9 U/L (6-35); Albumin Level 3.8 g/dL (3.5-5.1); Alkaline Phosphatase 84 U/L (38-126); Anion Gap 7 mmol/L (4-12); Aspartate Amino Transferase 20 U/L (14-36); Bilirubin,Total 0.9 mg/dL (0.2-1.3); Blood Urea Nitrogen 12 mg/dL (7-17); Carbon Dioxide 25 mmol/L (22-30); Chloride 102 mmol/L (98-107); Estimated CRCL calculation 54 ml/min; Estimated Glomerular Filt Rate > 60; Glucose 143 mg/dL (65-110); Potassium 3.9 mmol/L (3.4-5.0); Sodium 134 mmol/L (137-145)
[2024-07-13 05:54] LABS: NT Pro B Type Natriuretic Pept 2320 pg/mL (19.9-100)
[2024-07-13 05:59] LABS: Alveolar/Arterial O2 Gradient 100.7 mmHg; Base Excess ABG -3.6 mEq/l (+/-2.0); Fractional Inspired Oxygen 28 %; Oxygen Content ABG 12.2 %vol (16.0-22.0); Oxygen Saturation ABG 92.7 % (95.0-100.0); Oxyhemoglobin 91.5 % THb (90.0-100.0); PCO2 ABG 31.1 mmHg (35.0-45.0); PO2 ABG 62.2 mmHg (80.0-100.0); PO2 FiO2 Ratio Arterial Blood 2.22 %; Total Hemoglobin 9.4 g/dL (12.0-18.0); pH ABG 7.427 (7.350-7.450)
[2024-07-13 06:00] LABS: Device NASAL CANNULA; Modified Allen's Test Pass; Site Drawn LEFT RADIAL
[2024-07-13] MEDS: FUROSEMIDE INJ 40 MG/4 ML VIAL IV PUSH (06:37)
[2024-07-13 07:20] LABS: Influenza A QL RT-PCR Negative (Negative); Influenza B QL RT-PCR Negative (Negative); SARS-CoV-2 RNA PCR Negative (Negative)
--- NOTE | 2024-07-13 07:30 | ADMGEN ---
This patient, Loni Stroud, was admitted to 2 Medical Room 241-01. Patient/family oriented to hospital policies and general routines including ID bracelet, bed and alarms, visiting hours, pain management, procedures, bathroom and other care routines, personal items, smoking policy, room service/diet, and visiting hours. Information on how to activate the Rapid Response Team has been discussed. Patient/Family are encouraged to report perceived risks to care and to ask questions if they do not understand what they are told or what they should do.
[2024-07-13] MEDS: OMEGA 3 POLYUNSAT FATTY ACIDS 1 GM CAP PO ×2 (10:49→17:30)
[2024-07-13] MEDS: COLESEVELAM 625 MG TABLET 1875 MG PO ×2 (10:50→17:30)
--- NOTE | 2024-07-13 16:48 | PM.IMHP ---
H&P: HPI History of Present Illness Date/Time: 07/13/24 16:48 Chief Complaint: Shortness of breath Narrative: ER-HPI narrative: Patient is an 84-year-old female who presents to the emergency department this morning via EMS due to shortness of breath. EMS states that initially patient's oxygen levels were noted to be in the low 80s she was placed on 4 L nasal cannula with improvement of her oxygenation to 98%. Patient was also noted to be hypertensive with a blood pressure of 200/80 and was administered 1 sublingual nitroglycerin with improvement of her blood pressure to 150 over 70. Patient states that she has been having worsening shortness of breath for the past 2 days. Patient denies any history of COPD with admits to history of CHF and atrial fibrillation and is on Xarelto for her AFib. Patient states that her shortness of breath started after returning from a road trip. Patient states that she saw her primary care physician on Thursday and her oxygen level was normal at 99% on room air. Patient states that she has never had any issues with her lungs. She denies any URI symptoms or flu-like symptoms, denies any fevers or chills at home, denies any chest pain or any abdominal pain. No additional symptoms or concerns at this time. patient presented with complaint of shortness of breath was found to have elevated BNP of 2320 chest x-ray concerning for pulmonary edema and there is mild lower extremity edema, patient was given IV Lasix 40 mg from ER patient states is feeling little better compared to when she arrived not as short of breath. To further evaluate will order cardiac echo, a PT OT evaluate the patient and further recommendation to follow, patient is present in the room Review of Systems Review of Systems: All systems are reviewed and are negative unless stated otherwise in the HPI. [facility] Past Medical History Medical History Atrial fibrillation Coronary artery disease Hyperlipidemia Hypertension Hypothyroidism Occult blood in stools Surgical History Surgical History History of cholecystectomy History of percutaneous coronary intervention One stent History of tonsillectomy Family History Family History (Updated 07/13/24 @ 06:48 by Wen Garcias RN) Father Lung cancer Mother History of heart bypass surgery Sibling Pancreatic cancer Social History Social History Social History: She lives with her and has 2 children. She is a lifelong nonsmoker. No alcohol marijuana or illicit drugs. 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 She is retired. Code status full code Smoking status: Never smoker Second hand tobacco smoke exposure: No Alcohol intake: never Substance use: never Do You Feel Safe in your Home?: Yes Lack of Transportation: No Lack of Food: Never True Current Housing: I Have Housing Concerned About Future Housing: No Difficulty Paying Gas/Electric Bills: No Difficulty Paying for Meds: No Currently Unemployed: No Education: Bachelor's Degree Difficulty w/ Childcare or Family Care: No Spiritual care concerns: No Meds Home Medications and Allergies Home Medications Medication Instructions Recorded Confirmed Type amlodipine 5 mg tablet 5 mg PO HS 06/10/23 07/13/24 History aspirin 81 mg tablet,delayed 81 mg PO HS 06/10/23 07/13/24 History release cinnamon bark 500 mg capsule 1,000 mg PO DAILY 06/10/23 07/13/24 History (Cinnamon) colesevelam 625 mg tablet 1,875 mg PO BID 06/10/23 07/13/24 History ezetimibe 10 mg tablet 10 mg PO HS 06/10/23 07/13/24 History levothyroxine 125 mcg tablet 112 mcg PO DAILY 06/10/23 07/13/24 History (Synthroid) metoprolol succinate 100 mg 100 mg PO HS 06/10/23 07/13/24 History tablet,extended release 24 hr
[2024-07-13] MEDS: RIVAROXABAN 20 MG TABLET PO (17:30)
[2024-07-13] MEDS: EZETIMIBE 10 MG TABLET PO (20:55)
[2024-07-13] MEDS: ASPIRIN 81 MG ENTERIC TABLET PO (20:55)
[2024-07-13] MEDS: LOSARTAN POTASSIUM 100 MG TABLET PO (20:55)
[2024-07-13] MEDS: METOPROLOL SUCCINATE EXT REL 100 MG TABCR PO (20:58)
[2024-07-13] MEDS: amLODIPine BESYLATE 5 MG TABLET PO (20:58)
[2024-07-14] VITALS (15 sets, daily range): BP systolic 140–170; BP diastolic 50–55; PULSE 60–65; RESP 18; TEMP 36.7–37.6; O2SAT 95–99; BMI 35.2
[2024-07-14 05:55] LABS: Hematocrit 27.5 % (37.0-47.0); Hemoglobin 8.2 g/dL (12.0-15.0); Mean Corpuscular HGB Conc 29.8 g/dl (32-36); Mean Corpuscular Hemoglobin 21.7 pg (26-34); Mean Corpuscular Volume 72.8 fl (80-100); Mean Platelet Volume 9.6 fl (7.4-10.4); Platelet Count Result 325 k/mm3 (150-375); Red Blood Count 3.78 M/mm3 (4.2-5.4); Red Cell Distribution Width 17.2 % (11.5-14.5); White Blood Count 12.3 K/mm3 (4.5-10.0)
[2024-07-14] MEDS: LEVOTHYROXINE SODIUM 112 MCG TABLET PO (05:58)
[2024-07-14 06:06] LABS: Anion Gap 4 mmol/L (4-12); Blood Urea Nitrogen 14 mg/dL (7-17); Calcium 8.5 mg/dL (8.4-10.2); Carbon Dioxide 30 mmol/L (22-30); Chloride 101 mmol/L (98-107); Estimated CRCL calculation 49 ml/min; Estimated Glomerular Filt Rate 60; Glucose 115 mg/dL (65-110); Magnesium 2.2 mg/dL (1.6-2.3); Potassium 4.3 mmol/L (3.4-5.0); Sodium 135 mmol/L (137-145)
[2024-07-14] MEDS: COLESEVELAM 625 MG TABLET 1875 MG PO ×2 (08:02→17:08)
[2024-07-14] MEDS: OMEGA 3 POLYUNSAT FATTY ACIDS 1 GM CAP PO ×2 (08:02→17:08)
[2024-07-14] MEDS: FUROSEMIDE INJ 40 MG/4 ML VIAL IV PUSH (10:23)
--- NOTE | 2024-07-14 10:43 | P.CDI_ITS ---
CDI Query Clarification Request CHF has been documented. Please specify type and acuity of heart failure if known. Clinical Indicators: Documentation states Presents to the emergency department this morning via EMS due to shortness of breath. EMS states that initially patient's oxygen levels were noted to be in the low 80s she was placed on 4 L nasal cannula with improvement of her oxygenation to 98% , chest x-ray concerning for pulmonary edema and there is mild lower extremity edema, patient was given IV Lasix 40 mg from ER . Pts chief complaint was shortness of breath, BNP 2320. Treatment: IV lasix 40 given on 07/13 and 07/14. * Acute * Chronic * Acute on Chronic * Unknown * Systolic * Diastolic * Combined Systolic and Diastolic * Unknown <Christy Manzano RN - Last Filed: 07/14/24 10:47> Clarified Diagnosis Clarified Diagnosis: Patient presented with shortness of breath, chest x-ray concerning for pulmonary edema patient was treated with Lasix however cardiac echo is essentially normal unable to determine if patient had a systolic or diastolic dysfunction <Dottie Carlson MD - Last Filed: 07/31/24 19:50>
--- NOTE | 2024-07-14 14:02 | WPDPN ---
Progress Note: A&P Assessment and Plan (1) Acute hypoxic respiratory failure: Code(s): J96.01 - Acute respiratory failure with hypoxia Status: Acute (2) CHF (congestive heart failure): Code(s): I50.9 - Heart failure, unspecified Status: Acute (3) Anemia: Qualifiers: Anemia type: iron deficiency Iron deficiency anemia type: inadequate dietary iron intake Qualified Code(s): D50.8 - Other iron deficiency anemias Code(s): D64.9 - Anemia, unspecified Status: Acute (4) Atrial fibrillation: Qualifiers: Atrial fibrillation type: unspecified Qualified Code(s): I48.91 - Unspecified atrial fibrillation Code(s): I48.91 - Unspecified atrial fibrillation Status: Acute Plan patient presented with complaint of shortness of breath was found to have elevated BNP of 2320 chest x-ray concerning for pulmonary edema and there is mild lower extremity edema, patient was given IV Lasix 40 mg from ER, on 07/13 patient stated she was feeling little better compared to when she arrived not as short of breath. To further evaluate cardiac echo was ordered which is normal, however today patient stats feel more tired, and requiring oxygen 4L NC as patient is at RA at home, will give lasix 40mg xa, will monitor, patient with history of atrial fibrillation the rate is controlled and patient is anticoagulated with Xarelto, patient UA shows UTI however patient denies any dysuiria or frequency of urination. PT OT evaluate the patient and further recommendation to follow, patient is present in the room Subjective Date/time seen: 07/14/24 14:02 Interval history: patient presented with complaint of shortness of breath was found to have elevated BNP of 2320 chest x-ray concerning for pulmonary edema and there is mild lower extremity edema, patient was given IV Lasix 40 mg from ER, on 07/13 patient stated she was feeling little better compared to when she arrived not as short of breath. To further evaluate cardiac echo was ordered which is normal, however today patient stats feel more tired, and requiring oxygen 4L NC as patient is at RA at home, will give lasix 40mg xa, will monitor, patient with history of atrial fibrillation the rate is controlled and patient is anticoagulated with Xarelto, patient UA shows UTI however patient denies any dysuiria or frequency of urination. PT OT evaluate the patient and further recommendation to follow, patient is present in the room Review of Systems Review of Systems: All systems are reviewed and are negative unless stated otherwise in the HPI. Exam Narrative: Patient is comfortable, NAD HEENT: eyes are clear and none icteric LUNGS: Bilateral fair entry with fine crackles HEART: RR S1S2 ABD: BS+, Soft and nontender Lower extremities: Mild edema SKIN: nonjaundiced Neuro: grossly intact. Objective Data Vital Signs Vital Signs: Vital Signs - 24 hr 07/13/24 16:03 07/13/24 20:58 07/13/24 22:00 Temperature 36.8 C Pulse Rate 73 70 60 Respiratory Rate 18 Blood Pressure 149/47 H Pulse Oximetry 100 Oxygen Delivery Oxygen Flow Rate 07/13/24 20:00 07/13/24 21:12 07/13/24 20:00 Temperature Pulse Rate 66 Respiratory Rate Blood Pressure Pulse Oximetry 100 100 Oxygen Delivery Nasal Cannula Nasal Cannula Oxygen Flow Rate 4 4 07/14/24 00:00 07/14/24 04:00 07/14/24 06:09 Temperature Pulse Rate 60 60 Respiratory Rate Blood Pressure Pulse Oximetry 97 Oxygen Delivery Nasal Cannula Oxygen Flow Rate 3.5 07/14/24 06:00 07/14/24 07:58 07/14/24 08:02 Temperature 36.7 C Pulse Rate 60 Respiratory Rate 18 18 Blood Pressure 140/51 L Pulse Oximetry 99 95 95 Oxygen Delivery Nasal Cannula Nasal Cannula Oxygen Flow Rate 3 3 07/14/24 08:03 07/14/24 12:01 07/14/24 13:00 Temperature 37.6 C Pulse Rate 60 65 60 Respiratory Rate 18 Blood Pressure
[2024-07-14] MEDS: POLYSACCHARIDE IRON COMPLEX 150 MG CAPSULE PO (17:08)
[2024-07-14] MEDS: RIVAROXABAN 20 MG TABLET PO (17:08)
[2024-07-14] MEDS: METOPROLOL SUCCINATE EXT REL 100 MG TABCR PO (20:34)
[2024-07-14] MEDS: EZETIMIBE 10 MG TABLET PO (20:34)
[2024-07-14] MEDS: ASPIRIN 81 MG ENTERIC TABLET PO (20:34)
[2024-07-14] MEDS: amLODIPine BESYLATE 5 MG TABLET PO (20:35)
[2024-07-14] MEDS: LOSARTAN POTASSIUM 100 MG TABLET PO (20:35)
[2024-07-15] VITALS: PULSE 63
[2024-07-15 04:00] VITALS: PULSE 60
[2024-07-15 05:54] LABS: Hematocrit 29.1 % (37.0-47.0); Hemoglobin 8.4 g/dL (12.0-15.0); Mean Corpuscular HGB Conc 28.9 g/dl (32-36); Mean Corpuscular Hemoglobin 20.8 pg (26-34); Mean Corpuscular Volume 72.2 fl (80-100); Platelet Count Result 326 k/mm3 (150-375); Red Blood Count 4.03 M/mm3 (4.2-5.4); White Blood Count 7.7 K/mm3 (4.5-10.0)
[2024-07-15 06:00] VITALS: BP 162/64; PULSE 56; RESP 20; TEMP 36.8; O2SAT 94
[2024-07-15 06:07] LABS: Anion Gap 3 mmol/L (4-12); Blood Urea Nitrogen 15 mg/dL (7-17); Calcium 8.5 mg/dL (8.4-10.2); Carbon Dioxide 32 mmol/L (22-30); Chloride 97 mmol/L (98-107); Estimated CRCL calculation 47 ml/min; Estimated Glomerular Filt Rate 60; Glucose 108 mg/dL (65-110); Magnesium 2.3 mg/dL (1.6-2.3); Sodium 132 mmol/L (137-145)
[2024-07-15] MEDS: LEVOTHYROXINE SODIUM 112 MCG TABLET PO (06:30)
[2024-07-15 08:00] VITALS: O2SAT 94
[2024-07-15] MEDS: COLESEVELAM 625 MG TABLET 1875 MG PO (08:23)
[2024-07-15] MEDS: POLYSACCHARIDE IRON COMPLEX 150 MG CAPSULE PO (08:24)
[2024-07-15] MEDS: OMEGA 3 POLYUNSAT FATTY ACIDS 1 GM CAP PO (08:24)
--- NOTE | 2024-07-15 09:59 | PM.DS ---
DS: Admitting Diagnosis Discharge Date 05/14/24 Admitting Diagnosis Shortness of breath DS: Discharge Diagnosis Discharge Diagnosis (1) Acute hypoxic respiratory failure: Code(s): J96.01 - Acute respiratory failure with hypoxia Status: Acute (2) CHF (congestive heart failure): Code(s): I50.9 - Heart failure, unspecified Status: Acute (3) Anemia: Qualifiers: Anemia type: iron deficiency Iron deficiency anemia type: inadequate dietary iron intake Qualified Code(s): D50.8 - Other iron deficiency anemias Code(s): D64.9 - Anemia, unspecified Status: Acute (4) Atrial fibrillation: Qualifiers: Atrial fibrillation type: unspecified Qualified Code(s): I48.91 - Unspecified atrial fibrillation Code(s): I48.91 - Unspecified atrial fibrillation Status: Acute DS: Summary Hospital Course Hospital Course: patient presented with complaint of shortness of breath was found to have elevated BNP of 2320 chest x-ray concerning for pulmonary edema and there is mild lower extremity edema, patient was given IV Lasix 40 mg from ER, on 07/13 patient stated she was feeling little better compared to when she arrived not as short of breath. To further evaluate cardiac echo was ordered which is normal, however today patient stats feel more tired, and requiring oxygen 4L NC as patient is at RA at home, will give lasix 40mg xa, will monitor, patient with history of atrial fibrillation the rate is controlled and patient is anticoagulated with Xarelto, patient UA shows UTI however patient denies any dysuiria or frequency of urination. patient clinical symptoms have improved both patient and her want to be discharge home, will discharge today. Time Spent with Patient Time attestation: Total time spent providing and/or coordinating discharge services: Exam Narrative: Patient is comfortable, NAD HEENT: eyes are clear and none icteric LUNGS: Bilateral fair entry with fine crackles HEART: RR S1S2 ABD: BS+, Soft and nontender Lower extremities: Mild edema SKIN: nonjaundiced Neuro: grossly intact. DS: Data Data Completed and Pending Labs on day of discharge: Labs from last 24 hours 07/15/24 05:05 WBC 7.7 RBC 4.03 L Hgb 8.4 L Hct 29.1 L MCV 72.2 L MCH 20.8 L MCHC 28.9 L RDW 17.0 H Plt Count 326 MPV 10.0 Sodium 132 L Potassium 4.0 Chloride 97 L Carbon Dioxide 32 H Anion Gap 3 L BUN 15 Creatinine 0.90 Estim Creat Clear Calc 47 Estimated GFR 60 Glucose 108 Calcium 8.5 Magnesium 2.3 Discharge Plan Discharge Attending physician on discharge: Dottie Carlson Consulting providers: Wilbur Bone; Saravanan Leggett; Faheem Marroquin Discharging Clinician: Dottie Carlson Patient Disposition: Home, Self-Care Activity: as tolerated Diet: heart healthy Discharge Instructions: Patient to follow up with her primary care provider as soon as possible, patient is instructed if any symptoms worsen to go to nearest ER Patient Instructions: Antibiotic Form, Rivaroxaban (By mouth), Pain Management (DC) Stand Alone Forms: General Discharge Information Follow-up/Referrals: UNKNOWN,DOCTOR [Primary Care Provider] - Discharge Medications: New polysaccharide iron complex 150 mg iron Capsule 150 mg PO BIDWM Qty: 60 0RF furosemide [Lasix] 20 mg tablet 20 mg PO DAILY Qty: 30 0RF Continued losartan 100 mg tablet 100 mg PO HS metoprolol succinate 100 mg tablet extended release 24 hr 100 mg PO HS amlodipine 5 mg tablet 5 mg PO HS colesevelam 625 mg tablet 1,875 mg PO BID levothyroxine [Synthroid] 125 mcg tablet 112 mcg PO DAILY ezetimibe 10 mg tablet 10 mg PO HS Xarelto 20 mg tablet 20 mg PO QPM aspirin 81 mg Tablet,Delayed Release (Dr/Ec) 81 mg PO HS cinnamon bark [Cinnamon] 500 mg Capsule 1,000 mg PO DAILY [id number]
== END 2024-07-15 11:15 | disposition home or self-care (01) | DRG 291 ==
LOC: ANHED 06:19 → ANH2MED 06:34
PROVIDERS: Admitting Provider Internal Medicine; Emergency Provider Emergency Medicine; Visit Provider Family Medicine
DX: I11.0 Hypertensive heart disease with heart failure (principal); J96.01 Acute respiratory failure with hypoxia; I48.20 Chronic atrial fibrillation, unspecified; I50.9 Heart failure, unspecified; I25.10 Atherosclerotic heart disease of native coronary artery without angina pectoris; E78.5 Hyperlipidemia, unspecified; E03.9 Hypothyroidism, unspecified; D50.8 Other iron deficiency anemias; Z20.822 Contact with and (suspected) exposure to COVID-19; Z79.01 Long term (current) use of anticoagulants; Z79.82 Long term (current) use of aspirin
CPT/HCPCS: 36415; 36600; 71045; 80048; 80053; 82805; 82810; 83735; 83880; 85018; 85025; 85027; 87636; 93005; 93306; 99285; A9270; J1940

== ENCOUNTER 2025-05-27 06:06 | Emergency (ER) | payer MEDICARE, SELFPAY ==
--- OUTSIDE RECORDS SUMMARY | 2025-05-27 06:09 | XMS_ITS | Patient Health Record ---
Author Organization [facility] Address [address] [place] [address] Support Name Relationship Address Phone Loni Stroud Guarantor Unknown [phone] Reason For Referral No Information Plan Of Treatment No Information Insurance Providers Payer Name Payer Address Payer Phone Subscriber Number Group Number Insured Name Patient Relationship to Insured Coverage Start Date Coverage End Date DO NOT USE AR [id number] Loni Duffy i Self - patient is the insured [facility] [address] [place] [address] [id number] Loni Duffy i Self - patient is the insured
--- OUTSIDE RECORDS SUMMARY | 2025-05-27 06:09 | XMS_ITS | Encounter Summary ---
Author Organization [facility] Address [address] [place] [address] Care Team Providers Care Outside Dealer Sales Representative Name Role Phone Abelino BUTLER MD, Champ Lindquist Primary Care Provider Tyler Monae MD Unavailable Yunior Chan MD Primary Care Provider Yunior Chan MD Unavailable [phone] AppriJose Juan paz MD Unavailable [phone] Jose Juan Bowens MD Unavailable [phone] Valerie Nina DRILLING ASSISTANT-PHYSICAL GEOGRAPHER Unavailable [phone] Jose Juan Bowens MD Unavailable Valerie Nina DRILLING ASSISTANT-PHYSICAL GEOGRAPHER Unavailable [phone] Jose Juan Bowens MD Unavailable [phone] Yunior Chan MD Unavailable [phone] Jose Juan Bowens MD Unavailable [phone] Yunior Chan MD Unavailable [phone] Jose Juan Bowens MD Unavailable [phone] Yunior Chan MD Unavailable [phone] Grisel Gastelum RN Unavailable David Leggett Unavailable Tyler Monae MD Unavailable [phone] Shira Burton Unavailable [phone] Encounter Details Date Type Department Care Team (Late st Contact Info) Description 02/09/2014 [facility]NAL [facility] [place] [address] [address] Social History Tobacco Use Types Packs/Day Years Used Date Smoking Tobacco: Never Smokeless Tobacco: Never Alcohol Use Standard Drinks/Week Comments No 0 (1 standard drink = 0.6 oz pur e alcohol) Comments No Sex and Gender Information Value Date Recorded Sex Assigned at Not on file Legal Sex Female 5:12 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 Answer Date of Assessment Author No 02/08/2014 3:04 PM CARILTOST Leia Tee RN * Is person blind or have serious difficulty seeing? Answer Date of Assessment Author No 02/08/2014 3:04 PM CARLITOST Leia Tee RN * Does person have serious difficulty walking/climbing stairs? Answer Date of Assessment Author No 02/08/2014 3:04 PM CARLITOST Leia Tee RN * Does person have difficulty dressing/bathing? Answer Date of Assessment Author No 02/08/2014 3:04 PM CARLITOST Leia Tee, RN * Does person have difficulty doing errands alone? Answer Date of Assessment Author No 02/08/2014 3:04 PM Leia Mendez RN documented as of this encounter Mental Status * Does person have difficulty concentrating/remembering/making decisions? Answer Entry Date Author No 02/08/2014 3:04 PM Leia Mendez RN documented in this encounter Plan of Treatment Upcoming Encounters Date Type Department Care Team (Late st Contact Info) Description 06/01/2025 7:00 AM CDT Clinical Support [facility] Heart & Vascular Care [address] [place] [address] [address] [place] [address] Jose Juan Bowens MD [address] [place] [address] [address] [place] [address] 06/08/2025 11:30 AM CDT Office Visit [facility] [address] [place] [address] Trudy Mckeon, DRILLING ASSISTANT-PHYSICAL GEOGRAPHER [address] [place] [address] 07/11/2025 8:00 AM CDT Clinical Support [facility] [address] [place] [address] 07/25/2025 3:30 PM CDT Office Visit [facility] Medical Group - Internal Medicine [address] [place] [address] [address] [place] [phone] Yunior Chan MD [address] [place] [phone] 08/08/2025 10:00 AM CDT Office Visit [facility] [address] [place] [address] Stephanie Martínez MD [address] [place] [phone] 08/15/2025 7:45 AM CDT Clinical Support [facility] Vascular [address] [place] [address] 08/31/2025 7:15 AM SINTERING PRESS OPERATOR Clinical Support [facility] [address] [place] [address] Jose Juan Bowens MD [address] [place] [address] [address] [place] [address] 09/19/2025 1:00 PM SINTERING PRESS OPERATOR Office Visit [facility] [address] [place] [address] Jose Juan Bowens MD [address] [place] [address] 11/30/2025 7:00 AM SINTERING PRESS OPERATOR Clinical Support [facility] Heart & Vascular [address] [place] [address] Jose Juan Bowens MD [address] [place] [address] [address] [place] [address] documented as of this encounter Visit Diagnoses Not on filedocumented in this encounter Care Teams Outside Dealer Sales Representative Relationship Specialty Start Date End Date Champ Roca III, MD PCP - General Rheumatology 01/30/14 07/29/15 Yunior Chan MD PCP - General Internal Medicine 07/30/15 Yunior Chan MD [address] [place] [phone] PCP - Attributed-MSSP 12/17/18 11/18/19 Jose Juan Bowens MD [address] [place] [address] [place] [address] PCP - Attributed-MSSP 11/19/19 04/17/20 Valerie Nina APRN-PHYSICAL GEOGRAPHER [address] [place] [address] PCP - Attributed-MSSP 04/18/20 05/18/20 Jose Juan Bowens MD [address] [facility] [address] [place] [address] PCP - Attributed-MSSP 05/19/202 0 Valerie Nina, DRILLING ASSISTANT-PHYSICAL GEOGRAPHER [address] [place] [address] PCP - Attributed-MSSP 10/19/20 12/16/20 Jose Juan Bowens MD [address] [facility] [address] [place] [address] PCP - Attributed-MSSP 12/17/202 1 Yunior Chan MD [address] [place] [phone] PCP - Attributed-MSSP 10/19/21 02/15/22 Jose Juan Bowens MD [address] [facility] [address] [place] [address] PCP - Attributed-MSSP 02/16/22 06/18/22 Yunior Chan MD [address] [place] [phone] PCP - Attributed-MSSP 06/19/22 2 Jose Juan Bowens MD [address] [facility] [address] [place] [address] PCP - Attributed-MSSP 09/18/22 01/17/24 Yunior Chan MD [address] [phone] PCP - Attributed-MSSP 01/18/24 [place] [address] [address] PCP - Attributed-MSSP 03/25/17 04/25/17 Tyler Monae MD Cardiology 04/07/14 05/11/19 Jose Juan Bowens MD [address] [facility] [address] [place] [address] Cardiovascular Disease 05/12/19 Grisel Gastelum, RN Gas Shovel OperatorPublic Employment Mediator 04/26/24 04/28/24 David Leggett Care Coordination Specialist Care Management 06/30/24 06/30/24 Shira Burton Care Coordination Specialist Care Management 01/10/25 01/10/25 documented as of this encounter
--- OUTSIDE RECORDS SUMMARY | 2025-05-27 06:09 | XMS_ITS | Encounter Summary ---
Author Organization [facility] Address [address] [place] [address] Care Team Providers Care Electronics Manufacturer Name Role Phone Tyler Monae MD Unavailable Yunior Chan MD Primary Care Provider Yunior Chan MD Unavailable [phone] AppJose Juan callahan MD Unavailable Jose Juan Bowens MD Unavailable Valerie Nina [employer] SCOUT-FINANCIAL MANAGEMENT Unavailable [phone] AppJose Juan callahan MD Unavailable Valerie Nina [employer] SCOUT-FINANCIAL MANAGEMENT Unavailable [phone] AppJose Juan callahan MD Unavailable Yunior Chan MD Unavailable [phone] Jose Juan Bowens MD Unavailable Yunior Chan MD Unavailable [phone] Jose Juan Bowens MD Unavailable Yunior Chan MD Unavailable [phone] Grisel Gastelum RN Unavailable LeggettDavid breen Unavailable Shira Burton Unavailable Encounter Details Date Type Department Care Team (Late Contact Info) Description 10/29/2017 [facility] Outpatient Visit [facility] Heart & Vascular Care [address] [facility] [address] [place] [address] [place] [address] [address] Social History Tobacco Use Types Packs/Day Years Used Date Smoking Tobacco: Never Smokeless Tobacco: Never Alcohol Use Standard Drinks/Week Comments No 0 (1 standard drink = 0.6 oz pur e alcohol) Comments No Sex and Gender Information Value Date Recorded Sex Assigned at Not on file Legal Sex Female 5:12 AM SHELLFISH MEAT SEPARATOR OPERATOR Gender Identity Not on file Sexual Orientation Not on file Occupation Industry Job Start Date Job End Date retired Not on file Not on file Not on file documented as of this encounter Functional Status * Is person deaf or have serious hearing difficulty? Answer Date of Assessment Author No 07/04/2014 12:05 PM Cierra Mix RN * Is person blind or have serious difficulty seeing? Answer Date of Assessment Author No 07/04/2014 12:05 PM Cierra Mix RN * Does person have serious difficulty walking/climbing stairs? Answer Date of Assessment Author No 07/04/2014 12:05 PM Cierra Mix RN * Does person have difficulty dressing/bathing? Answer Date of Assessment Author No 07/04/2014 12:05 PM Cierra Mix RN * Does person have difficulty doing errands alone? Answer Date of Assessment Author No 07/04/2014 12:05 PM Cierra Mix RN documented as of this encounter Mental Status * Does person have difficulty concentrating/remembering/making decisions? Answer Entry Date Author No 07/04/2014 12:05 PM Cierra Mix RN documented in this encounter Plan of Treatment Upcoming Encounters Date Type Department Care Team (Late Contact Info) Description 06/01/2025 7:00 AM CDT Clinical Support [facility] Heart & Vascular Care [address] [place] [address] [address] [place] [address] Jose Juan Bowens MD [address] [place] [address] [address] [place] [address] 06/08/2025 11:30 AM CDT Office Visit [facility] & Vascular [address] [place] [address] Trudy Mckeon, [employer] SCOUT-FINANCIAL MANAGEMENT [address] [place] [address] 07/11/2025 8:00 AM CDT Clinical Support [facility] & Vascular [address] [place] [address] 07/25/2025 3:30 PM CDT Office Visit [facility] Medical Group - Internal Medicine [address] [place] [address] [address] [place] [phone] Yunior Chan MD [address] [place] [phone] 08/08/2025 10:00 AM CDT Office Visit [facility] & Vascular [address] [place] [address] Stephanie Martínez MD [address] [place] [phone] 08/15/2025 7:45 AM CDT Clinical Support [facility] [address] [place] [address] 08/31/2025 7:15 AM SHELLFISH MEAT SEPARATOR OPERATOR Clinical Support [facility] & [facility] [address] [place] [address] Jose Juan Bowens MD [address] [place] [address] [address] [place] [address] 09/19/2025 1:00 PM SHELLFISH MEAT SEPARATOR OPERATOR Office Visit [facility] Heart & Vascular [address] [place] [address] Jose Juan Bowens MD [address] [place] [address] [address] [place] [address] 11/30/2025 7:00 AM SHELLFISH MEAT SEPARATOR OPERATOR Clinical Support [facility] Heart & Vascular [address] [place] [address] Jose Juan Bowens MD [address] [place] [address] documented as of this encounter Visit Diagnoses Not on filedocumented in this encounter Care Teams Electronics Manufacturer Relationship Specialty Start Date End Date Yunior Chan MD PCP - General Internal Medicine 07/30/15 Yunior Chan MD [address] [place] [phone] PCP - Attributed-MSSP 12/17/18 11/18/19 Jose Juan Bowens MD [address] [place] [address] [place] [address] PCP - Attributed-MSSP 11/19/19 04/17/20 Valerie Nina APRN-FINANCIAL MANAGEMENT [address] [place] [address] [address] [place] [address] PCP - Attributed-MSSP 04/18/20 05/18/20 Jose Juan Bowens MD [address] [facility] [address] [place] [address] PCP - Attributed-MSSP 05/19/20 0 Valerie Nina, [employer] SCOUT-FINANCIAL MANAGEMENT [address] [place] [address] PCP - Attributed-MSSP 10/19/20 12/16/20 Jose Juan Bowens MD [address] [facility] [address] [place] [address] PCP - Attributed-MSSP 12/17/20 1 Yunior Chan MD [address] [place] [phone] PCP - Attributed-MSSP 10/19/21 02/15/22 Jose Juan Bowens MD [address] [facility] [address] [place] [address] PCP - Attributed-MSSP 02/16/22 06/18/22 Yunior Chan MD [address] [place] [phone] PCP - Attributed-MSSP 06/19/22 2 Jose Juan Bowens MD [address] [facility] [address] [place] [address] PCP - Attributed-MSSP 09/18/22 01/17/24 Yunior Chan MD [address] [phone] PCP - Attributed-MSSP 01/18/24 Tyler Monae MD Cardiology 04/07/14 05/11/19 Jose Juan Bowens MD [address] [facility] [address] [place] [address] Cardiovascular Disease 05/12/19 Grisel Gastelum, RN Industrial Electrical TechnicianFingernail Sculptor 04/26/24 04/28/24 David Leggett Care Coordination Specialist Care Management 06/30/24 06/30/24 Shira Burton Care Coordination Specialist Care Management 01/10/25 01/10/25 documented as of this encounter
--- OUTSIDE RECORDS SUMMARY | 2025-05-27 06:09 | XMS_ITS | Encounter Summary ---
Author Organization [facility] Address [address] [place] [address] Care Team Providers Care Adjustment Clerk Name Role Phone Abelino BUTLER MD, Champ Lindquist Primary Care Provider Tyler Monae MD Unavailable Yunior Chan MD Primary Care Provider Yunior Chan MD Unavailable [phone] AppriJose Juan paz MD Unavailable [phone] Jose Juan Bowens MD Unavailable [phone] Valerie Nina -SAMPLE BOX MAKER Unavailable [phone] Jose Juan Bowens MD Unavailable Valerie Nina -SAMPLE BOX MAKER Unavailable [phone] Jose Juan Bowens MD Unavailable [phone] Yunior Chan MD Unavailable [phone] Jose Juan Bowens MD Unavailable [phone] Yunior Chan MD Unavailable [phone] Jose Juan Bowens MD Unavailable [phone] Yunior Chan MD Unavailable [phone] Grisel Gastelum RN Unavailable David Leggett Unavailable Tyler Monae MD Unavailable [phone] Shira Burton Unavailable Encounter Details Date Type Department Care Team (Late st Contact Info) Description 02/27/2014 [facility] Outpatient Visit [facility] Heart & Vascular Care [address] [place] [address] [address] [place] [address] Marlen Soto, -SAMPLE BOX MAKER [facility] [place] [address] [place] [address] [address] [place] [address] Social History Tobacco Use Types Packs/Day Years Used Date Smoking Tobacco: Never Smokeless Tobacco: Never Alcohol Use Standard Drinks/Week Comments No 0 (1 standard drink = 0.6 oz pur e alcohol) Comments No Sex and Gender Information Value Date Recorded Sex Assigned at Not on file Legal Sex Female 5:12 AM OIL WELL SERVICE UNIT OPERATOR Gender Identity Not on file Sexual Orientation Not on file documented as of this encounter Functional Status * Is person deaf or have serious hearing difficulty? Answer Date of Assessment Author No 02/08/2014 3:04 PM CARLITOST Leia Tee, LIZ * Is person blind or have serious difficulty seeing? Answer Date of Assessment Author No 02/08/2014 3:04 PM CARLITOST Leia Tee, RN * Does person have serious difficulty walking/climbing stairs? Answer Date of Assessment Author No 02/08/2014 3:04 PM CARLITOST Leia Tee, RN * Does person have difficulty dressing/bathing? Answer Date of Assessment Author No 02/08/2014 3:04 PM CARLITOST Leia Tee, LIZ * Does person have difficulty doing errands alone? Answer Date of Assessment Author No 02/08/2014 3:04 PM Leia Mendez, RN documented as of this encounter Mental Status * Does person have difficulty concentrating/remembering/making decisions? Answer Entry Date Author No 02/08/2014 3:04 PM Leia Mendez, LIZ documented in this encounter Plan of Treatment Upcoming Encounters Date Type Department Care Team (Late st Contact Info) Description 06/01/2025 7:00 AM CDT Clinical Support [facility] Heart & Vascular Care [address] [place] [address] [address] [place] [address] Jose Juan Bowens MD [address] [place] [address] [facility] [address] [place] [address] 06/08/2025 11:30 AM CDT Office Visit [facility] Heart & Vascular Care [address] [place] [address] [address] [place] [address] Trudy Mckeon, -SAMPLE BOX MAKER [address] [place] [address] [place] [address] 07/11/2025 8:00 AM CDT Clinical Support [facility] Heart & Vascular Care [address] [place] [address] [address] [place] [address] 07/25/2025 3:30 PM CDT Office Visit [facility] Medical [facility] - Internal Medicine [address] [place] [address] [address] [place] [phone] Yunior Chan MD [address] [place] [phone] 08/08/2025 10:00 AM CDT Office Visit [facility] Heart & Vascular Care [address] [place] [address] [address] [place] [address] Stephanie Martínez MD [address] [place] [phone] 08/15/2025 7:45 AM CDT Clinical Support [facility] Heart & Vascular Care [address] [place] [address] [address] [place] [address] 08/31/2025 7:15 AM OIL WELL SERVICE UNIT OPERATOR Clinical Support [facility] Heart & Vascular Care [address] [place] [address] [address] [place] [address] Jose Juan Bowens MD [address] [place] [address] [address] [place] [address] 09/19/2025 1:00 PM OIL WELL SERVICE UNIT OPERATOR Office Visit [facility] Heart & Vascular [address] [place] [address] Jose Juan Bowens MD [address] [place] [address] 200 [place] [address] 11/30/2025 7:00 AM OIL WELL SERVICE UNIT OPERATOR Clinical Support [facility] Heart [facility] Vascular [address] [place] [address] Jose Juan Bowens MD [address] [place] [address] documented as of this encounter Visit Diagnoses Not on filedocumented in this encounter Care Teams Adjustment Clerk Relationship Specialty Start Date End Date Champ Roca III, MD PCP - General Rheumatology 01/30/14 07/29/15 Yunior Chan MD PCP - General Internal Medicine 07/30/15 Yunior Chan MD [address] [place] [phone] PCP - Attributed-MSSP 12/17/18 11/18/19 Jose Juan Bowens MD [address] [place] [address] [place] [address] PCP - Attributed-MSSP 2/1/20 6/30/20 Valerie Nina APRN-SAMPLE BOX MAKER [address] [place] [address] PCP - Attributed-MSSP 04/18/20 05/18/20 Jose Juan Bowens MD [address] [facility] [address] [place] [address] PCP - Attributed-MSSP 05/19/20 0 Valerie Nina APRN-SAMPLE BOX MAKER [address] [place] [address] PCP - Attributed-MSSP 10/19/20 12/16/20 Jose Juan Bowens MD [address] [facility] [address] [place] [address] PCP - Attributed-MSSP 12/17/20 1 Yunior Chan MD [address] [place] [phone] PCP - Attributed-MSSP 10/19/21 02/15/22 Jose Juan Bowens MD [address] [facility] [address] [place] [address] PCP - Attributed-MSSP 02/16/22 06/18/22 Yunior Chan MD [address] [place] [phone] PCP - Attributed-MSSP 06/19/22 11//2 2 Jose Juan Bowens MD [address] [facility] [address] [place] [address] PCP - Attributed-MSSP 09/18/22 01/17/24 Yunior Chan MD [address] [phone] PCP - Attributed-MSSP 01/18/24 [place] [address] [address] PCP - Attributed-MSSP 03/25/17 04/25/17 Tyler Monae MD Cardiology 04/07/14 05/11/19 Jose Juan Bowens MD [address] [facility] [address] [place] [address] Cardiovascular Disease 05/12/19 Grisel Gastelum, LIZ Isotope HydrologistPeach Grower 04/26/24 04/28/24 David Lgegett Care Coordination Specialist Care Management 06/30/24 06/30/24 Shira Burton Care Coordination Specialist Care Management 01/10/25 01/10/25 documented as of this encounter
--- OUTSIDE RECORDS SUMMARY | 2025-05-27 06:09 | XMS_ITS | Encounter Summary ---
Author Organization [facility] Address [address] [place] [address] Care Team Providers Care Plaster Applicator Name Role Phone None, Pcp Primary Care Provider Unavailcaty Roca III, MD, Champ Lindquist Primary Care Provider Tyler Monae MD Unavailable Yunior Chan MD Primary Care Provider Yunior Chan MD Unavailable [phone] AppriJose Juan paz MD Unavailable Jose Juan Bowens MD Unavailable [phone] Valerie Nina MAKE UP OPERATOR-TOMATO GRADER Unavailable [phone] AppJose Juan callahan MD Unavailable [phone] Valerie Nina MAKE UP OPERATOR-TOMATO GRADER Unavailable [phone] AppJose Juan callahan MD Unavailable [phone] Yunior Chan MD Unavailable [phone] Jose Juan Bowens MD Unavailable [phone] Yunior Chan MD Unavailable [phone] Jose Juan Bowens MD Unavailable Yunior Chan MD Unavailable [phone] Grisel Gastelum RN Unavailable David Leggett Unavailable Tyler Monae MD Unavailable JeromyShelleyShira Salmeron Unavailable Encounter Details Date Type Department Care Team (Late st Contact Info) Description 04/07/2013 [facility] Outpatient Visit [facility] Care [address] [place] [address] [address] [place] [address] Tyler Monae MD [address] [place], [place] [id number] Social History Tobacco Use Types Packs/Day Years Used Date Smoking Tobacco: Never Smokeless Tobacco: Never Alcohol Use Standard Drinks/Week Comments No 0 (1 standard drink = 0.6 oz pur e alcohol) Comments No Sex and Gender Information Value Date Recorded Sex Assigned at Not on file Legal Sex Female 5:12 AM TAIL SAWYER Gender Identity Not on file Sexual Orientation Not on file documented as of this encounter Plan of Treatment Upcoming Encounters Date Type Department Care Team (Late Contact Info) Description 06/01/2025 7:00 AM CDT Clinical Support [facility] Heart & Vascular Care [address] [place] [address] [address] [place] [address] Jose Juan Bowens MD [address] [place] [address] [facility] [place] [address] [place] [address] 06/08/2025 11:30 AM CDT Office Visit [facility] Care [address] [place] [address] [address] [place] [address] Trudy Mckeon, MAKE UP OPERATOR-TOMATO GRADER [address] [place] [address] [place] [address] 07/11/2025 8:00 AM CDT Clinical Support [facility] Care [address] [place] [address] [address] [place] [address] 07/25/2025 3:30 PM CDT Office Visit [facility] Medical [facility] - Internal Medicine [address] [place] [address] [address] [place] [phone] Yunior Chan MD [address] [place] [address] [address] [place] [phone] 08/08/2025 10:00 AM CDT Office Visit [facility] Heart & Vascular [address] [place] [address] Stephanie Martínez MD [address] [place] [phone] 08/15/2025 7:45 AM CDT Clinical Support [facility] & Vascular [address] [place] [address] 08/31/2025 7:15 AM TAIL SAWYER Clinical Support [facility] Heart & Vascular [address] [place] [address] Jose Juan Bowens MD [address] [place] [address] 09/19/2025 1:00 PM TAIL SAWYER Office Visit [facility] Care [address] [place] [address] [address] [place] [address] Jose Juan Bowens MD [address] [place] [address] 11/30/2025 7:00 AM TAIL SAWYER Clinical Support [facility] Care [address] [place] [address] [address] [place] [address] Jose Juan Bowens MD [address] [place] [address] documented as of this encounter Visit Diagnoses Not on filedocumented in this encounter Care Teams Plaster Applicator Relationship Specialty Start Date End Date None, Pcp [place] [address] PCP - General Nurse Practitioner 12/17/12 01/10/14 Champ Roca III, MD [place] [address] PCP - General Rheumatology 01/30/14 07/29/15 Yunior Chan MD [place] [address] PCP - General Internal Medicine 07/30/15 Yunior Chan MD [address] [facility] [address] [place] [phone] PCP - Attributed-MSSP 12/17/18 11/18/19 Jose Juan Bowens MD [address] [facility] [address] [place] [address] PCP - Attributed-MSSP 11/19/19 04/17/20 Valerie Nina APRN-TOMATO GRADER [address] [place] [address] PCP - Attributed-MSSP 04/18/20 05/18/20 Jose Juan Bowens MD [address] [facility] [address] [place] [address] PCP - Attributed-MSSP 05/19/20 0 Valerie Nina APRN-CNP [address] [place] [address] PCP - Attributed-MSSP 10/19/20 12/16/20 Jose Juan Bowens MD [address] [facility] [address] [place] [address] PCP - Attributed-MSSP 12/17/20 1 Yunior Chan MD [address] [place] [phone] PCP - Attributed-MSSP 10/19/21 02/15/22 Jose Juan Bowens MD [address] [facility] [address] [place] [address] PCP - Attributed-MSSP 02/16/22 06/18/22 Yunior Chan MD [address] [place] [phone] PCP - Attributed-MSSP 06/19/22 2 Jose Juan Bowens MD [address] [facility] [address] [place] [address] PCP - Attributed-MSSP 09/18/22 01/17/24 Yunior Chan MD [address] [place] [phone] PCP - Attributed-MSSP 01/18/24 [place] [address] [facility] [place], [address] [address] PCP - Attributed-MSSP 03/25/17 04/25/17 Tyler Monae MD [place] [address] Cardiology 04/07/14 05/11/19 Jose Juan Bowens MD [facility] [address] [place] [address] Cardiovascular Disease 05/12/19 Grisel Gastelum, RN Wood Milling Machine OperatorTamale Machine Feeder 04/26/24 04/28/24 David Leggett Care Coordination Specialist Care Management 06/30/24 06/30/24 Shira Burton Care Coordination Specialist Care Management 01/10/25 01/10/25 documented as of this encounter
--- OUTSIDE RECORDS SUMMARY | 2025-05-27 06:09 | XMS_ITS | Encounter Summary ---
Author Organization [facility] Address [address] [place] [address] Care Team Providers Care Silk Washing Machine Operator Name Role Phone Yunior Chan MD Primary Care Provider [phone] Jose Juan Bowens MD Unavailable [phone] Yunior Chan MD Unavailable [phone] Shira Burton Unavailable Reason for Visit * Reason Onset Date Comments Late Cancel 07/18/2024 Encounter Details Date Type Department Care Team (Late st Contact Info) Description 07/18/2024 Telephone [facility] Medical [facility] - Internal Medicine [address] [place] [phone] Yunior Chan MD [address] [place] [phone] Late Cancel Social History Tobacco Use Types Packs/Day Years Used Date Smoking Tobacco: Never Smokeless Tobacco: Never Alcohol Use Standard Drinks/Week Comments No 0 (1 standard drink = 0.6 oz pur e alcohol) PHQ-2 Answer Date Recorded Patient Health Questionnaire-2 Score 0 07/11/2024 Comments No Sex and Gender Information Value Date Recorded Sex Assigned at Not on file Legal Sex Female 5:12 AM DUST COLLECTOR OPERATOR Gender Identity Not on file Sexual Orientation Not on file Occupation Industry Job Start Date Job End Date retired Not on file Not on file Not on file documented as of this encounter Functional Status * Is person deaf or have serious hearing difficulty? Answer Date of Assessment Author No 07/04/2014 12:05 PM CARLITOST Cierra Avalos, LIZ * Is person blind or have serious difficulty seeing? Answer Date of Assessment Author No 07/04/2014 12:05 PM CDT Cierra Avalos RN * Does person have serious difficulty walking/climbing stairs? Answer Date of Assessment Author No 07/04/2014 12:05 PM CARLITOST Cierra Avalos RN * Does person have difficulty dressing/bathing? Answer Date of Assessment Author No 07/04/2014 12:05 PM CARLITOST Cierra Avalos RN * Does person have difficulty doing errands alone? Answer Date of Assessment Author No 07/04/2014 12:05 PM CARLITOST Cierra Avalos RN documented as of this encounter Mental Status * Does person have difficulty concentrating/remembering/making decisions? Answer Entry Date Author No 07/04/2014 12:05 PM Cierra Mix RN documented in this encounter Miscellaneous Notes * Telephone Encounter - Cierra Lloyd - 07/18/2024 12:08 PM CDT Loni Stroud called and cancel their same day appointment Appointment Date: 07-18-24 Appointment Time: 1500 If rescheduled: Visit date not found Provider: Rocio documented in this encounter Plan of Treatment Upcoming Encounters Date Type Department Care Team (Late st Contact Info) Description 06/01/2025 7:00 AM CDT Clinical Support [facility] Heart & Vascular Care [address] [place] [address] [address] [place] [address] Jose Juan Bowens MD [address] [place] [address] [facility] [address] [place] [address] 06/08/2025 11:30 AM CDT Office Visit [facility] Heart & Vascular Care [address] [place] [address] [address] [place] [address] Trudy Mckeon APRN-SOCIAL MEDIA ASSISTANT [address] [place] [address] [address] [place] [address] 07/11/2025 8:00 AM CDT Clinical Support [facility] & Vascular [address] [place] [address] 07/25/2025 3:30 PM CDT Office Visit [facility] - Internal Medicine [address] [place] [address] [address] [place] [phone] Yunior Chan MD [address] [place] [phone] 08/08/2025 10:00 AM CDT Office Visit [facility] & Vascular [address] [place] [address] Stephanie Martínez MD [address] [place] [phone] 08/15/2025 7:45 AM CDT Clinical Support [facility] & Vascular [address] [place] [address] 08/31/2025 7:15 AM DUST COLLECTOR OPERATOR Clinical Support [facility] Heart & Vascular Care [address] [place] [address] [address] [place] [address] Jose Juan Bowens MD [address] [place] [address] 09/19/2025 1:00 PM DUST COLLECTOR OPERATOR Office Visit [facility] & Vascular [address] [place] [address] Jose Juan Bowens MD [address] [place] [address] [address] [place] [address] 11/30/2025 7:00 AM DUST COLLECTOR OPERATOR Clinical Support [facility] Heart & Vascular Care [address] [place] [address] [address] [place] [address] Jose Juan Bowens MD [address] [place] [address] [address] [place] [address] documented as of this encounter Visit Diagnoses Not on filedocumented in this encounter Care Teams Silk Washing Machine Operator Relationship Specialty Start Date End Date Yunior Chan MD PCP - General Internal Medicine 07/30/15 Yunior Chan MD [address] [place] [address] [address] [place] [phone] PCP - Attributed-MSSP 01/18/24 Jose Juan Bowens MD [address] [place] [address] [address] [place] [address] Cardiovascular Disease 05/12/19 Shira Burton Care Coordination Specialist Care Management 01/10/25 01/10/25 documented as of this encounter
--- OUTSIDE RECORDS SUMMARY | 2025-05-27 06:09 | XMS_ITS | Encounter Summary ---
Author Organization [facility] Address [address] [facility] [address] Care Team Providers Care Western Felt Hat Blocker Name Role Phone None, Pcp Primary Care Provider Unavailcaty Roca III, MD, Champ Lindquist Primary Care Provider [phone] Tyler Monae MD Unavailable Yunior Chan MD Primary Care Provider Yunior Chan MD Unavailable [phone] AppriJose Juan paz MD Unavailable [phone] Jose Juan Bowens MD Unavailable [phone] Valerie Nina LINEN WORKER-FRUIT GROWER Unavailable [phone] AppJose Juan callahan MD Unavailable [phone] Valerie Nina LINEN WORKER-FRUIT GROWER Unavailable [phone] AppJose Juan callahan MD Unavailable [phone] Yunior Chan MD Unavailable [phone] Jose Juan Bowens MD Unavailable [phone] Yunior Chan MD Unavailable [phone] Jose Juan Bowens MD Unavailable Yunior Chan MD Unavailable [phone] Grisel Gastelum RN Unavailable David Leggett Unavailable Tyler Monae MD Unavailable JeromyShelleyShira Salmeron Unavailable Encounter Details Date Type Department Care Team (Late st Contact Info) Description 10/06/2013 [facility] Outpatient Visit [facility] Heart & Vascular Care [address] [place] [address] [address] [place] [address] Tyler Monae MD [address] [place], [place] [phone] Social History Tobacco Use Types Packs/Day Years Used Date Smoking Tobacco: Never Smokeless Tobacco: Never Alcohol Use Standard Drinks/Week Comments No 0 (1 standard drink = 0.6 oz pur e alcohol) Comments No Sex and Gender Information Value Date Recorded Sex Assigned at Not on file Legal Sex Female 5:12 AM INSTITUTIONAL RESEARCH COORDINATOR Gender Identity Not on file Sexual Orientation Not on file documented as of this encounter Plan of Treatment Upcoming Encounters Date Type Department Care Team (Late Contact Info) Description 06/01/2025 7:00 AM CDT Clinical Support [facility] Heart & Vascular Care [address] [place] [address] [address] [place] [address] Jose Juan Bowens MD [address] [place] [address] [facility] [place] [address] [place] [address] 06/08/2025 11:30 AM CDT Office Visit [facility] Heart & Vascular Care [address] [place] [address] [address] [place] [address] Trudy Mckeon, LINEN WORKER-FRUIT GROWER [address] [place] [address] [place] [address] 07/11/2025 8:00 AM CDT Clinical Support [facility] Heart & Vascular Care [address] [place] [address] [address] [place] [address] 07/25/2025 3:30 PM CDT Office Visit [facility] Medical [facility] - Internal Medicine [address] [place] [address] [address] [place] [phone] Yunior Chan MD [address] [place] [address] [address] [place] [phone] 08/08/2025 10:00 AM CDT Office Visit [facility] Heart & Vascular [address] [place] [address] Stephanie Martínez MD [address] [place] [phone] 08/15/2025 7:45 AM CDT Clinical Support [facility] & Vascular [address] [place] [address] 08/31/2025 7:15 AM INSTITUTIONAL RESEARCH COORDINATOR Clinical Support [facility] Heart & Vascular [address] [place] [address] Jose Juan Bowens MD [address] [place] [address] 09/19/2025 1:00 PM INSTITUTIONAL RESEARCH COORDINATOR Office Visit [facility] Heart & Vascular Care [address] [place] [address] [address] [place] [address] Jose Juan Bowens MD [address] [place] [address] 11/30/2025 7:00 AM INSTITUTIONAL RESEARCH COORDINATOR Clinical Support [facility] & V[facility] Care [address] [place] [address] [address] [place] [address] Jose Juan Bowens MD [address] [place] [address] documented as of this encounter Visit Diagnoses Not on filedocumented in this encounter Care Teams Western Felt Hat Blocker Relationship Specialty Start Date End Date None, Pcp [place] [address] PCP - General Nurse Practitioner 12/17/12 01/10/14 Champ Roca III, MD [place] [address] PCP - General Rheumatology 01/30/14 07/29/15 Yunior Chan MD [place] [address] PCP - General Internal Medicine 07/30/15 Yunior Chan MD [address] [facility] [address] [place] [phone] PCP - Attributed-MSSP 12/17/18 11/18/19 Jose Juan Bowens MD [address] [facility] [address] [place] [address] PCP - Attributed-MSSP 11/19/19 04/17/20 Valerie Nina APRN-FRUIT GROWER [address] [place] [address] PCP - Attributed-MSSP 04/18/20 05/18/20 Jose Juan Bowens MD [address] [facility] [address] [place] [address] PCP - Attributed-MSSP 05/19/20 0 Valerie Nina APRN-CNP [address] [place] [address] PCP - Attributed-MSSP 10/19/20 12/16/20 Jose Juan Bowens MD [address] [facility] [address] [place] [address] PCP - Attributed-MSSP 12/17/20 1 Yunior Chan MD [address] [place] [phone] PCP - Attributed-MSSP 10/19/21 02/15/22 Jose Juan Bowens MD [address] [facility] [address] [place] [address] PCP - Attributed-MSSP 02/16/22 06/18/22 Yunior Chna MD [address] [place] [phone] PCP - Attributed-MSSP 06/19/22 2 Jose Juan Bowens MD [address] [facility] [address] [place] [address] PCP - Attributed-MSSP 09/18/22 01/17/24 Yunior Chan MD [address] [place] [phone] PCP - Attributed-MSSP 01/18/24 [place] [address] [facility], [address] [address] PCP - Attributed-MSSP 03/25/17 04/25/17 Tyler Monae MD [place] [address] Cardiology 04/07/14 05/11/19 Jose Juan Bowens MD [facility] [address] [place] [address] Cardiovascular Disease 05/12/19 Grisel Gastelum, RN Blood Splatter AnalystElectroplater Helper 04/26/24 04/28/24 David Leggett Care Coordination Specialist Care Management 06/30/24 06/30/24 Shira Burton Care Coordination Specialist Care Management 01/10/25 01/10/25 documented as of this encounter
--- OUTSIDE RECORDS SUMMARY | 2025-05-27 06:09 | XMS_ITS | Encounter Summary ---
Author Organization [facility] Address [address] [facility] [place] [address] Care Team Providers Care Hatcher[employer] Employee Name Role Phone None, Pcp Primary Care Provider Unavailcaty Roca III, MD, Champ Lindquist Primary Care Provider [phone] Tyler Monae MD Unavailable Yunior Chan MD Primary Care Provider Yunior Chan MD Unavailable [phone] AppriJose Juan paz MD Unavailable Jose Juan Bowens MD Unavailable [phone] Valerie Nina BELT SANDER [employer]E BAKER Unavailable [phone] AppJose Juan callahan MD Unavailable [phone] Valerie Nina [employer] SANDER [employer] BAKER Unavailable [phone] AppJose Juan callahan MD Unavailable [phone] Yunior Chan MD Unavailable [phone] Jose Juan Bowens MD Unavailable [phone] Yunior Chan MD Unavailable [phone] Jose Juan Bowens MD Unavailable Yunior Chan MD Unavailable [phone] Grisel Gastelum RN Unavailable David Leggett Unavailable Tyler Monae MD Unavailable JeromyShelleyShira Salmeron Unavailable Encounter Details Date Type Department Care Team (Late st Contact Info) Description 10/06/2013 [facility] Outpatient Visit [facility] [address] [place] [address] [address] [place] [address] Tyler Monae MD [address] [place], [place] [id number] Social History Tobacco Use Types Packs/Day Years Used Date Smoking Tobacco: Never Smokeless Tobacco: Never Alcohol Use Standard Drinks/Week Comments No 0 (1 standard drink = 0.6 oz pur e alcohol) Comments No Sex and Gender Information Value Date Recorded Sex Assigned at Not on file Legal Sex Female 5:12 AM EARLY CHILDHOOD TEACHER Gender Identity Not on file Sexual Orientation Not on file documented as of this encounter Plan of Treatment Upcoming Encounters Date Type Department Care Team (Late Contact Info) Description 06/01/2025 7:00 AM CDT Clinical Support [facility] [address] [place] [address] [address] [place] [address] Jose Juan Bowens MD [address] [place] [address] [facility] [place] [address] [place] [address] 06/08/2025 11:30 AM CDT Office Visit [facility] [address] [place] [address] [address] [place] [address] Trudy Mckeon, BELT SANDER [employer]E BAKER [address] [place] [address] [place] [address] 07/11/2025 8:00 AM CDT Clinical Support [facility] [address] [place] [address] [address] [place] [address] 07/25/2025 3:30 PM CDT Office Visit [facility] - Internal Medicine [address] [place] [address] [address] [place] [phone] Yunior Chan MD [address] [place] [address] [address] [place] [phone] 08/08/2025 10:00 AM CDT Office Visit [facility] Heart [facility]ascular [address] [place] [address] Stephanie Martínez MD [address] [place] [phone] 08/15/2025 7:45 AM CDT Clinical Support [facility] [address] [place] [address] 08/31/2025 7:15 AM EARLY CHILDHOOD TEACHER Clinical Support [facility] [address] [place] [address] Jose Juan Bowens MD [address] [place] [address] 09/19/2025 1:00 PM EARLY CHILDHOOD TEACHER Office Visit [facility] [address] [place] [address] [address] [place] [address] Jose Juan Bowens MD [address] [place] [address] 11/30/2025 7:00 AM EARLY CHILDHOOD TEACHER Clinical Support [facility] [address] [place] [address] [address] [place] [address] Jose Juan Bowens MD [address] [place] [address] documented as of this encounter Visit Diagnoses Not on filedocumented in this encounter Care Teams Hatchery Employee Relationship Specialty Start Date End Date None, Pcp [place] [address] PCP - General Nurse Practitioner 12/17/12 01/10/14 Champ Roca III, [place] [address] PCP - General Rheumatology 01/30/14 07/29/15 Yunior Chan [place] [address] PCP - General Internal Medicine 07/30/15 Yunior Chan MD [address] [facility] [address] [place] [phone] PCP - Attributed-MSSP 12/17/18 11/18/19 Jose Juan Bowens MD [address] [facility] [address] [place] [address] PCP - Attributed-MSSP 11/19/19 04/17/20 Valerie Nina APRN-PIE BAKER [address] [place] [address] PCP - Attributed-MSSP 04/18/20 05/18/20 Jose Juan Bowens MD [address] [facility] [address] [place] [address] PCP - Attributed-MSSP 05/19/20 0 Valerie Nina APRN-CNP [address] [place] [address] PCP - Attributed-MSSP 10/19/20 12/16/20 Jose Juan Bowens MD [address] [facility] [address] [place] [address] PCP - Attributed-MSSP 12/17/20 1 Yunior Chan MD [address] [place] [phone] PCP - Attributed-MSSP 10/19/21 02/15/22 Jose Juan Bowens MD [address] [facility] [address] [place] [address] PCP - Attributed-MSSP 02/16/22 06/18/22 Yunior Chan MD [address] [place] [phone] PCP - Attributed-MSSP 06/19/22 2 Jose Juan Bowens MD [address] [facility] [address] [place] [address] PCP - Attributed-MSSP 09/18/22 01/17/24 Yunior Chan MD [address] [place] [phone] PCP - Attributed-MSSP 01/18/24 [place] [address] [facility], [address] [address] PCP - Attributed-MSSP 03/25/17 04/25/17 Tyler Monae MD [place] [address] Cardiology 04/07/14 05/11/19 Jose Juan Bowens MD [facility] [address] [place] [address] Cardiovascular Disease 05/12/19 Grisel Gastelum, RN Automotive Service ConsultantAirport Ramp Agent 04/26/24 04/28/24 David Leggett Care Coordination Specialist Care Management 06/30/24 06/30/24 Shira Burton Care Coordination Specialist Care Management 01/10/25 01/10/25 documented as of this encounter
--- OUTSIDE RECORDS SUMMARY | 2025-05-27 06:09 | XMS_ITS | Clinical Summary ---
Author Organization [facility] Address [address] [place] [address] Care Team Providers Care Electric Motor Assembler And Tester Name Role Phone Yunior Chan MD Primary Care Provider [phone] Jose Juan Bowens MD Unavailable [phone] Yunior Chan MD Unavailable [phone] Source Comments [facility],non-owned Affiliates and Associated Physician Practices is amultiple site organization consisting of ambulatory clinics and hospital sitesin [place], [place], [place] and [place]. This disclosure is being madepursuant to the Care Everywhere program and may not contain all information available regarding this patient. Last updated 18.[facility] Allergies Active Allergy Reactions Criticality Noted Date Comments Adhesive Sensitivity Itching 07/03/2014 Augmentin 08/24/2008 Lisinopril 02/07/2014 candesartan is home medication Lovastatin 07/30/2015 Severe muscle aches. Penicillins 02/07/2014 Sulfur 08/24/2008 Azithromycin Rash Low 01/03/2013 Medications * Be aware that medications may not be up to date on this document. Alwaysverify current medications with the patient. aspirin EC (ECOTRIN) 81 MG tablet Take 1 Tab by mouth once daily. 0 014 Active Fish Oil-Cholecalciferol (FISH OIL + D3) 6007-9102 MG-UNIT CAPS Take 1 Cap by mouth once daily 015 Active Cinnamon 500 MG Take 1,000 mg by mouth once daily 015 Active rivaroxaban (Xarelto) 20 MG tablet TAKE 1 TABLET BY MOUTH ONCE DAILY 90 tablet 3 03/27/20 25 2:48 PM CDT 024 2024 Active Synthroid 112 MCG tabletIndications:Hypot hyroidism due to acquired atrophy of thyroid TAKE 1 TABLET BY MOUTH EVERY DAY FOR THYROID 100 tablet 1 025 Active amLODIPine (Norvasc) 5 MG tabletIndications:Prima ry hypertension TAKE 1 TABLET BY MOUTH DAILY FOR HIGH BLOOD PRESSURE 90 tablet 3 025 Active ezetimibe (Zetia) 10 MG tabletIndications:Pure hypercholesterolemia TAKE 1 TABLET BY MOUTH EVERY DAY FOR HIGH AMOUNT OF FATS IN THE BLOOD 90 tablet 1 025 Active metoprolol succinate XL 24hr (Toprol XL) 100 MG tablet TAKE 1 TABLET BY MOUTH EVERY DAY 90 tablet 3 025 Active losartan (Cozaar) 100 MG tablet TAKE 1 TABLET BY MOUTH EVERY DAY 90 tablet 3 025 Active colesevelam (Welchol) 625 MG tabletIndications:Pure hypercholesterolemia TAKE 3 TABLETS BY MOUTH TWICE DAILY WITH THE MORNING AND EVENING MEAL FOR HIGH AMOUNT OF FATS IN THE BLOOD 540 tablet 1 025 Active vitamin D3 (Cholecalciferol) 10 MCG (400 UNIT) tablet Take 1 (one) tablet by mouth once daily 90 tablet 3 025 2025 Active VITAMIN D PO Take 1,000 mg by mouth 2 times daily 2024 Discontinued Active Problems Problem Noted Date Diagnosed Date Iron deficiency anemia 08/10/2024 Chronic diastolic CHF (conge stive heart failure), NYHA class 2 07/26/2024 DNR (do not resuscitate) discussion 01/04/2024 Overview (01/16/2025): Full Code. But she would not want to be kept alive on life support for an extended period of time. If she were unable to make decisions for herself, then either her or her two daughters would make decisions for her. 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 Continue to follow regularly with real estate operations manager, Dr. Bowens. She has had cardiac stents placed in past. History of coronary artery stent placement 04/30 Overview (11/12/2018): Prior to 12/29 Mid LAD stent History of sick sinus syndrome 01/19/2017 Overview (01/19/2017): Changed to Personal H/O 4-8-16 S/P pacemaker Hyperglycemia 01/30/2016 Hypothyroidism due to acquired atrophy of thyroi d 07/30/2015 Obesity (BMI 30.0-34.9) 07/30/2015 Overview (01/20/2017): Exact BMI was discussed at her visit in July,. Importance of weight loss was stressed at that time. Consider referral to an obesity clinic at a future visit. Details of a low-carb, high-fiber diet were discussed at her visit in July,. Cardiac pacemaker in situ 08/04/2014 Overview (08/10/2024): Site is easily palpable in the left upper chest wall. She has the pacemaker interrogated regularly. She denies any current symptoms of palpitations. Due to known history of sick sinus syndrome. Pacemaker gets interrogated periodically. No complaints of palpitations recently. Continue to follow regularly with real estate operations manager, Dr. Bowens. Pure hypercholesterolemia 04/07/2014 Overview (01/20/2017): Continue to take Welchol and Zetia. She was unable to tolerate statins in past due to severe muscle aches. Osteoarthritis of hand 03/04/2014 Overview (12/23/2020): Osteoarthritis, hand Osteoarthritis of knee 03/04/2014 Overview (12/23/2020): OA (osteoarthritis) of knee Paroxysmal atrial fibrillation 02/07/2014 Overview (06/18/2022): 01/09/2022 OV, Dr. Bowens 11/16/2019 OV, Dr. Gogo Monae MD (04/03/2016) ASCVD (arteriosclerotic cardiovascular disease) 12/05/2009 Overview (01/20/2017): Got card cath and stent 2008........ [facility]. Continue to follow with Dr. Monae. She has no recent history of chest pain or dyspnea. HTN (hypertension) 08/24/2008 Resolved Problems Problem Noted Date Diagnosed Date Resolved Date Pyelonephritis 07/06/2023 01/04/2024 Debility 12/19/2021 01/09/2024 History of COVID-19 12/19/2021 12/18/19 23 Overview (12/19/2021): Diagnosed with Covid in September,. Got over the disease quickly and has no sequelae. I have advised her today to get the Covid booster shot. Perforation of left tympanic membrane 03/08/2018 08/11/2018 Bilateral impacted cerumen 08/15/2017 1 10/29/2016 Bilateral impacted cerumen 08/13/2016 1 10/27/2015 Fitting and adjustment of cardiac pacemaker 11/23/2015 02/09/2019 Personal history of sick sinus syndrome 11/17/2014 08/12/2017 Bradycardia 04/14/2014 02/11/2017 CAD (coronary artery disease) 02/07/2014 01/25/2016 Leukocytosis 02/07/2014 01/30/2016 Screening for condition 08/24/200807/19 Overview (07/19/2015): Adult Abstraction Problem List Screening Pap Smear: Result: 11/18/2007 Mammogram: Result: 12/01/2007 BP (high blood pressure) 08/24/200805/2016 Menopause 08/24/2008 07/30/2015 Encounters Date Type Department Care Team Description 05/12/2025 Telephone [facility] Heart & Vascular Care [address] [place] [address] [address] [place] [address] Stephanie Martínez MD [facility] 05/08/2025 11:00 AM CDT Clinical Support [facility] Vascular [address] [place] [address] Jose Juan Bowens MD Visit for wound check ; History of sick sinus syndrome; Cardiac pacemaker in situ; Sick sinus syndrome (HCC) 05/02/2025 7:30 AM CDT Clinical Support [facility] [address] [place] [address] ERRONEOUS ENCOUNTER--DISREGARD ; History of sick sinus syndrome; Cardiac pacemaker in situ; Sick sinus syndrome (HCC) 05/01/2025 12:00 PM CDT - 05/01/2025 1:30 PM CDT Surgery [facility] - Cardiac Coal Passer [address] [place] [address] Stephanie Martínez MD Pacemaker Generator Replacement Dual Chamber 05/01/2025 11:38 AM CDT Anesthesia Event [facility] - Cardiac [facility] [address] [place] [id number] Aren Pichardo MD Boyce, Lisa C, BOOKKEEPING CLERKS SUPERVISOR-NARRATIVE WRITER 05/01/2025 9:05 AM CDT - 05/01/2025 2:06 PM CDT Hospital Encounter [facility] - Cardiac Coal [facility]er [address] [place] [address] Stephanie Martínez MD Cardiac Catheterization Discharge Disposition: Home or Self Care 04/27/2025 Refill [facility] Medical [facility] - Internal Medicine [address] [place] [address] [address] [place] [address] Yunior Chan MD Refill Request 04/26/2025 Refill [facility]ascular [address] [place] [address] Jose Juan Bowens MD Refill Request 04/19/2025 Telephone [facility] [address] [place] [address] Stephanie Martínez MD Follow-up 04/19/2025 Telephone [facility] [address] [place] [address] Stephanie Martínez MD Surgery Rescheduled 03/29/2025 Telephone [facility] [address] [place] [address] Stephanie Martínez MD Scheduling 03/28/2025 1:30 PM CDT Office Visit [facility] [address] [place] [address] Jose Juan Bowens MD 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 (AF LURIA, FLUZONE TRIVALENT; 6MO+) (IIV3) 10/19/2013,08/26/2013,09/01/2011 [employer] primary monoval ent 12+ yr 0.3mL Purple cap 01/26/2021,01/05/2021 INFLUENZA VACCINE 07/10/2022,,08/06/2020,2011 INFLUENZA VACCINE, HIGH-DOSE , QUADR. (FLUZONE HIGH-DOSE QUADRIVALENT; 65Y+), 0.7 ML (HD-IIV4) 07/23/2023,08/06/2020,08/16/2019,2017,08/13/2017 INFLUENZA VACCINE, QUADR. (F LUZONE; FLULAVAL; FLUARIX; AFLURIA QUADRIVALENT; 6MO+), 0.5 ML (IIV4) 08/13/2016,07/30/2015 INFLUENZA VACCINE, TRIV. (FL UZONE; FLULAVAL; FLUARIX; AFLURIA TRIVALENT; 6MO+), 0.5 ML (IIV3) 07/04/2014 PNEUMOCOCCAL PPSV23 07/30/2011,08/15/2008 Pneumococcal Pcv13 Conj 08/13/2016 TDAP (7yrs+) 09/03/2016 ZOSTER VACCINE, LIVE 07/30/2013,09/01/2011 Family History Medical History Relation Name Comments Cancer - Pancreatic Brother 1 Lung Cancer Father Heart Disease Mother Stroke Mother Cancer - Breast Other cousin Relation Name Status Comments Brother 1 Brother 2 Father Mother Other cousin Social History Tobacco Use Types Packs/Day Years Used Date Smoking Tobacco: Never Smokeless Tobacco: Never Tobacco Cessation:Counseling Given: Yes Alcohol Use Standard Drinks/Week Comments No 0 (1 standard drink = 0.6 oz pur e alcohol) PHQ-2 Answer Date Recorded Patient Health Questionnaire-2 Score 0 01/16/2025 Comments No Sex and Gender Information Value Date Recorded Sex Assigned at Not on file Legal Sex Female 5:12 AM HAM BONER Gender Identity Not on file Sexual Orientation Not on file Occupation Industry Job Start Date Job End Date retired Not on file Not on file Not on file Last Filed Vital Signs Vital Sign Reading Time Taken Comments Blood Pressure 142/71 05/01/2025 1:30 PM CDT Pulse 60 05/01/2025 1:35 PM CDT Temperature 36.8 C (98.3 F) 01/16/2025 1:09 PM CDT Respiratory Rate 23 05/01/2025 1:35 PM CDT Oxygen Saturation 97% 05/01/2025 1:35 PM CDT Inhaled Oxygen Concentration - - Weight 90.3 kg (199 lb) 03/28/2025 1:12 PM CDT Height 162.6 cm (5' 4) 01/16/2025 1:09 PM CDT Body Mass Index 34.16 01/16/2025 1:09 PM CDT Plan of Treatment Upcoming Encounters Date Type Department Care Team (Late st Contact Info) Description 06/01/2025 7:00 AM CDT Clinical Support [facility] Heart & Vascular Care [address] [place] [address] [address] [place] [address] Jose Juan Bowens MD [address] [place] [phone] 06/08/2025 11:30 AM CDT Office Visit [facility] [address] [place] [address] Trudy Mckeon, BOOKKEEPING CLERKS SUPERVISOR-INTERLOCKING INSTALLER [address] [place] [address] [address] [place] [address] 07/11/2025 8:00 AM CDT Clinical Support [facility] [address] [place] [address] 07/25/2025 3:30 PM CDT Office Visit [facility] Medical [facility] - Internal Medicine [address] [place] [address] [address] [place] [phone] Yunior Chan MD [address] [place] [phone] 08/08/2025 10:00 AM CDT Office Visit [facility] [address] [place] [address] Stephanie Martínez MD [address] [place] [phone] 08/15/2025 7:45 AM CDT Clinical Support [facility] Heart & Vascular Care [address] [place], [place] [address] [place] [address] 08/31/2025 7:15 AM HAM BONER Clinical Support [facility] [address] [place] [address] Jose Juan Bowens MD [address] [place] [address] 09/19/2025 1:00 PM HAM BONER Office Visit [facility] Heart & Vascular [address] [place] [address] Jose Juan Bowens MD [address] [place] [address] [address] [place] [address] 11/30/2025 7:00 AM HAM BONER Clinical Support [facility] Heart & Vascular [address] [place] [address] Jose Juan Bowens MD [address] [place] [address] [address] [place] [address] Health Maintenance Due Date Last Done Comments ZOSTER VACCINE (2 of 3) 09/24/2013 07/30/2013, 09/01 Respiratory Syncytial Virus (RSV) Vaccine Pt: or over 60 yrs (1 - 1-dose 75+ series) 2017 BONE DENSITY TESTING 02/10/2021 02/11/2016, 12/16/19 12 COVID-19 VACCINE ( season) 2024 01/26/2021, 01/05/2021 INFLUENZA VACCINE (#1) 2025 , 07/10/2022, 08/20/2021, Additional history exists MEDICARE AWV 12 MONTHS 01/16/2026 01/16/2025, 01/04/2024, 10/21/2022, Additional history exists DTAP/TDAP/TD VACCINES (2 - Td or Tdap) 09/03/2026 09/03/2016 PNEUMOCOCCAL VACCINE 50+ Completed 016, 07/30/2011, 08/15/2008 DEPRESSION SCREENING Completed 01/16/2025, 01/04/2024, 10/21/2022, Additional history exists HEPATITIS B VACCINE Aged Out No longe r eligible based on patient's age to complete this topic HIB VACCINE Aged Out No longer eligi ble based on patient's age to complete this topic HPV VACCINE Aged Out No longer eligi ble based on patient's age to complete this topic MENINGOCOCCAL (Group B) VACCINE SHARED DECISION-MAKING Aged Out No longer eligible based on patient's age to complete this topic MENINGOCOCCAL GROUPS A/C/Y/W VACCINE Aged Out No longer eligible based on patient's age to complete this topic Medical Devices Implanted Type Area Interlocker Maintainer Device Identifier Shelf Expiration Date Model / Serial / Lot Env Absb 2.7x2.5in Tyrx Polyarylate Implanted:Qty: 1 on 05/01/2025 by Stephanie Martínez MD at [facility] [employer] [id number] 01/25/2026 [id number] 2 / NA / [id number] Pacemkr Jocelyne Wirelessly Crd Implanted:Qty: 1 on 05/01/2025 by Stephanie Martínez MD at [facility] [employer] [id number] 09/15/2026 [id number] / [id number] / NA Procedures Procedure Name Priority Date/Time Associated Diagnosis Comments CARDIAC PROCEDURE ORDER 05/04/20 3:49 PM CDT ELECTROPHYSIOLOGY PROCEDURE Routine 05/01/2025 12:27 PM CDT CBC W AUTO DIFFERENTIAL Routine 04/20/20 2:12 PM CDT Paroxysmal atrial fibrillation (HCC) 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 Chronic diastolic CHF (congestive heart failure), NYHA class 2 (HCC) Pre-procedure lab exam BASIC METABOLIC PANEL (CALCIUM TOTAL) Routine 04/20/2025 2:12 PM CDT Paroxysmal atrial fibrillation (HCC) 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 us Scanned Document CARDIAC SERVICES ORDERABLES Fin al Result * CCL PACEMAKER GENERATOR REPLACEMENT DUAL CHAMBER (05/01/2025 12:27 PM CDT) Anatomical Region Laterality Modality X-Ray Angiograph y Impressions 05/01/2025 12:33 PM CDT : Successful permanent pacemaker generator change ([employer]). PLAN: Observe the patient in the holding area until effect of sedation resolves. Narrative 05/01/2025 12:33 PM CDT Procedure Details Estimated Blood Loss: 2 mL Procedure Details and Comments: Date: 05/01/25 PROCEDURES: Moderate sedation. Pacemaker generator change. INTERNET SITE DESIGNER: Stephanie Martínez MD INDICATION: This is a 85 year [id number] female with a history of bradycardia and sick sinus syndrome who received a permanent pacemaker in the past. It was noted that pacemaker was at elective replacement period. The patient considered for generator change. CONSENT: The risks and benefits of the procedure were discussed with the patient. The patient was given ample opportunity to ask questions. All questions were answered to the patient's satisfaction. The patient verbalized understanding of the risks, benefits, and alternatives of the procedure and wished to proceed with the procedure. SEDATION: Sedation was obtained by anesthesia team. The report of sedation is dictated separately. LOCAL ANESTHESIA: Local anesthesia was obtained using 0.25% Marcaine. DESCRIPTION OF PROCEDURE: The patient was brought to the lab in nonsedated state. Sedation was obtained. The Left chest was prepped and draped in a sterile fashion. Local anesthesia was obtained overlying the skin of the left chest. An incision was made over the previous incision in the left upper chest. The incision was almost 1.5 inches long. The incision dissected down to the pocket of the device and the device was extracted from the pocket. Then, the leads were from the device. The leads were assessed directly with appropriate sensing and pacing for the RV and RA leads. Then, the pocket was irrigated with antibiotic solution. Then, the leads were connected to the new generator. A Tyrx envelope was placed over the device. Then, the leads were coiled under the generator and the generator was placed inside the pocket. Then, the incision was closed in three layers using 2-0 and 3-0 Vicryl. A Steri- Strip was applied. Dressing was applied. The patient tolerated the procedure well. No acute adverse event noted. The patient was in the holding area in a stable condition. us Stephanie Martínez MD CV ELECTROPHYSIOLOGY CUPID PROCS Final Result * (ABNORMAL) CBC WITH DIFFERENTIAL (04/20/2025 2:12 PM CDT) WBC 12.6(H) 3.4 - 10.8 x10E3/uL [facility] INSURANCE BILL RBC 4.94 3.77 - 5.28 x10E6/uL [facility] INSURANCE BILL Hemoglobin 10.8(L) 11.1 - 15.9 g/dL [facility] INSURANCE BILL Hematocrit 36.7 34.0 - 46.6 % [facility] INSURANCE BILL MCV 74(L) 79 - 97 fL [facility] INSURANCE BILL MCH 21.9(L) 26.6 - 33.0 pg [facility] INSURANCE BILL MCHC 29.4(L) 31.5 - 35.7 g/dL [facility] INSURANCE BILL RDW 18.8(H) 11.7 - 15.4 % [facility] INSURANCE BILL Platelet Count 401 150 - 450 x10E3/uL [facility] INSURANCE BILL Granulocytes % 63 Not Estab. % [facility] INSURANCE BILL Lymphocytes % 24 Not Estab. % [facility] INSURANCE BILL Monocytes % 8 Not Estab. % [facility] INSURANCE BILL Eosinophils % 4 Not Estab. % [facility] INSURANCE BILL Basophils % 1 Not Estab. % [facility] INSURANCE BILL Granulocytes Absolute 7.9(H) 1.4 - 7.0 x10E3/uL [facility] INSURANCE BILL Lymphocytes Absolute 3.0 0.7 - 3.1 x10E3/uL [facility] INSURANCE BILL Monocytes Absolute 1.0(H) 0.1 - 0.9 x10E3/uL [facility] INSURANCE BILL Eosinophils Absolute 0.5(H) 0.0 - 0.4 x10E3/uL [facility] INSURANCE BILL Basophils Absolute 0.1 0.0 - 0.2 x10E3/uL [facility] INSURANCE BILL Immature Granulocytes 0 Not Estab. % [facility] INSURANCE BILL Immature Granulocytes Absolute 0.0 0.0 - 0.1 x10E3/uL [facility] INSURANCE BILL Blood BLOOD SPECIMEN / Unknown 04/20/2025 2:12 PM CDT 04/20/2025 Narrative [facility] INSURANCE BILL - 04/21/2025 7:09 AM CDT Performed at: [address] [place] [id number] Program Eligibility Specialist: Darek Coffman PhD, Phone: [phone] Stephanie Martínez MD LAB - HEMATOLOGY ORDERABLES Vikki l Result [facility] INSURANCE BILL [address] [place] [address] * (ABNORMAL) BASIC METABOLIC PANEL (BMP) (04/20/2025 2:12 PM CDT) [facility] Glucose 127(H) 70 - 99 mg/dL [facility] INSURANCE BILL BUN 19 8 - 27 mg/dL [facility] INSURANCE BILL Creatinine 0.90 0.57 - 1.00 mg/dL [facility] INSURANCE BILL eGFR by CKD-EPI 63 >59 mL/min/1.7 3 [facility] INSURANCE BILL BUN/Creatinine Ratio 21 12 - 28 [facility] INSURANCE BILL Sodium 139 134 - 144 mmol/L [facility] INSURANCE BILL Potassium 5.0 3.5 - 5.2 mmol/L [facility] INSURANCE BILL Chloride 104 96 - 106 mmol/L [facility] INSURANCE BILL CO2 22 20 - 29 mmol/L [facility] INSURANCE BILL Calcium 9.3 8.7 - 10.3 mg/dL [facility] INSURANCE BILL Blood BLOOD SPECIMEN / Unknown 04/20/2025 2:12 PM CDT 04/20/2025 Narrative [facility] INSURANCE BILL - 04/21/2025 7:09 AM CDT Performed at: [address] [place] [id number] Program Eligibility Specialist: Darek Coffman PhD, Phone: [phone] Stephanie Martínez MD LAB - CHEMISTRY ORDERABLES Final Result [facility] INSURANCE BILL [address] [place] [address] * DEXA BONE DENSITY 2 SITES (02/11/2016 7:23 AM CDT) Anatomical Region Laterality Modality Other Narrative 02/11/2016 7:23 AM CDT Lang Collazo MD 02/11/2016 7:23 AM [facility], Bone Density Report Pt. Name: Loni Stroud Gender: female : 1940 Test Date: 02/04/2016 Referring Physician: Eleazar Rubin M.D. Technologist: Marguerite Boston, [facility], CDT A Central DXA was performed today using a HoloNeurolink QDR [id number] perioperative educator. The images and data have been scanned into the media section of the EHR. If a FRAX was run, that also has been scanned. Images are of good technical quality. Areas studied (with applicable T-score for each site): Total Spine: 0.1 Lt. Hip (lowest of neck and total): -0.2 Rt. Hip (lowest of neck and total): -0.3 33% radius (only if necessary): - Official T-score: --> -0.3 Impression: Normal . Comparison: THIS DEXA SCAN WHEN COMPARED TO PREVIOUS ONE PERFORMED IN 2012 REVEALS THE T-SCORE TO HAVE IMPROVED IN THE LS REGION BUT DIMINISHED IN BOTH HIPS. Total hip and spine are the best sites to measure exchange clerk time or from therapy. Much of the fracture risk reduction seen with pharmacologic therapy comes from architectural change in the bone, and not from measured change in the bone density score. Interpreted using ISCD guidelines. Note that *Osteoporosis may be diagnosed in postmenopausal women and in men age 50 and older if: The T-score of the lumbar spine, total hip or femoral neck is -2.5 or less. In certain circumstances the 33% radius may be utilized. A fragility fracture, regardless of T-score, should be considered diagnostic of osteoporosis (provided other causes of the fracture have been excluded). Calvillo's area should not be considered for diagnosis. One isolated vertebral body cannot be used to diagnose. Recommendations: In general postmenopausal women should have a daily intake of 1,200 to 1,500 mg of calcium a day, and 800 IU of Vitamin D a day. A decision about when to add prescription therapy requires clinical correlation and may vary for any given individual patient. Fracture risk approximately doubles for every 1 SD decrease in BMD. The NOF suggests postmenopausal women and men age 50 and older presenting with the following should be considered for pharmacologic therapy: 1) A hip or vertebral (clinical or morphometric) fracture. 2) T-score < -2.5 at the femoral neck, total hip or spine after appropriate evaluation to exclude secondary causes 3) Low bone mass (T-score lower than -1.0 down to -2.5 at the femoral neck or spine) and a 10 year probability of hip fracture > 3% or a 10 year probability of a major osteoporosis-related fracture > 20% based on the [place] adapted WHO algorithm, the FRAX score (available at www.shef.ac.uk/FRAX) 4) Clinical judgement and/or patient preferences may indicate treatment for people with 10 year fracture probabilities above or below these levels. All treatment decisions require clinical judgment and consideration of individual patient factors, including patient preferences, comorbidities, previous medication use, risk factors not captured in the FRAX model (such as frailty, falls, Vit D deficiency, increased bone turnover, interval significant decline in bone density) and possible under or overestimation of fracture risk by FRAX. Lang Collazo MD 02/11/2016 7:23 AM , Physician and Certified Clinical Trim Setter Eleazar Rubin MD DEXA ORDERABLES Final Result from Last 3 Months or Most Recently Relevant to [place] [address] MEDICARE MEDICARE SUPPLEMENT PAYOR GENERIC Advance Directives * Full Code (Latest Code Status on File) Date Activated Date Inactivated Comments 05/01/2025 1:29 PM 05/01/2025 3:06 PM * Full Code Date Activated Date Inactivated Comments 07/03/2014 10:22 AM 07/04/2014 2:05 PM * Full Code Date Activated Date Inactivated Comments 02/07/2014 3:07 PM 02/08/2014 4:43 PM Care Teams Electric Motor Assembler And Tester Relationship Specialty Start Date End Date Yunior Chan MD PCP - General Internal Medicine 07/30/15 Yunior Chan MD [address] [place] [phone] PCP - Attributed-MSS 01/18/24 Jose Juan Bowens MD [address] [facility] [address] [place] [address] Cardiovascular Disease 05/12/19
--- OUTSIDE RECORDS SUMMARY | 2025-05-27 06:09 | XMS_ITS | Encounter Summary ---
Author Organization [facility] Address [address] [facility] [place] [address] Care Team Providers Care Loss Mitigation Specialist Name Role Phone Abelino BUTLER MD, Champ Lindquist Primary Care Provider Tyler Monae MD Unavailable Yunior Chan MD Primary Care Provider Yunior Chan MD Unavailable AppriJose Juan paz MD Unavailable [phone] Jose Juan Bowens MD Unavailable [phone] Valerie Nina PARTS PERSON-PHOTOGRAPHY SALES ASSOCIATE Unavailable [phone] Jose Juan Bowens MD Unavailable Valerie Nina PARTS PERSON-PHOTOGRAPHY SALES ASSOCIATE Unavailable [phone] Jose Juan Bowens MD Unavailable [phone] Yunior Chan MD Unavailable [phone] Jose Juan Bowens MD Unavailable [phone] Yunior Chan MD Unavailable [phone] Jose Juan Bowens MD Unavailable Yunior Chan MD Unavailable [phone] Grisel Gastelum RN Unavailable David Leggett Unavailable Tyler Monae MD Unavailable Shira Burton Unavailable Encounter Details Date Type Department Care Team (Late st Contact Info) Description 08/04/2014 [facility] Outpatient Visit [facility] [address] [place] [address] [address] [place] [address] Bobby Minaya MD [address] [place] [address] [address] [place] [address] Social History Tobacco Use Types Packs/Day Years Used Date Smoking Tobacco: Never Smokeless Tobacco: Never Alcohol Use Standard Drinks/Week Comments No 0 (1 standard drink = 0.6 oz pur e alcohol) Comments No Sex and Gender Information Value Date Recorded Sex Assigned at Not on file Legal Sex Female 5:12 AM GEM SETTER Gender Identity Not on file Sexual Orientation [...] Entry Date Author No 07/04/2014 12:05 PM CDT Cierra Avalos RN documented in this encounter Plan of Treatment Upcoming Encounters Date Type Department Care Team (Late st Contact Info) Description 06/01/2025 7:00 AM CDT Clinical Support [facility] [address] [place] [address] [address] [place] [address] Jose Juan Bowens MD [address] [place] [address] [address] [place] [address] 06/08/2025 11:30 AM CDT Office Visit [facility] [address] [place] [address] [address] [place] [address] Trudy Mckeon, PARTS PERSON-PHOTOGRAPHY SALES ASSOCIATE [address] [place] [address] [place] [address] 07/11/2025 8:00 AM CDT Clinical Support [facility] [address] [place] [address] [address] [place] [address] 07/25/2025 3:30 PM CDT Office Visit [facility] - Internal Medicine [address] [place] [address] [place] [phone] Yunior Chan MD [address] [place] [phone] 08/08/2025 10:00 AM CDT Office Visit [facility] [address] [place] [address] [address] [place] [address] Stephanie Martínez MD [address] [place] [phone] 08/15/2025 7:45 AM CDT Clinical Support [facility] [address] [place], [place] [address] [place] [address] 08/31/2025 7:15 AM GEM SETTER Clinical Support [facility] [address] [place] [address] [address] [place] [address] Jose Juan Bowens MD [address] [place] [address] [address] [place] [address] 09/19/2025 1:00 PM GEM SETTER Office Visit [facility] [address] [place] [address] [address] [place] [address] Jose Juan Bowens MD [address] [place] [address] [address] [place] [address] 11/30/2025 7:00 AM GEM SETTER Clinical Support [facility] [address] [place] [address] Jose Juan Bowens MD [address] [place] [address] [place] [phone] documented as of this encounter Visit Diagnoses Not on filedocumented in this encounter Care Teams Loss Mitigation Specialist Relationship Specialty Start Date End Date Champ Roca III, MD PCP - General Rheumatology 01/30/14 07/29/15 Yunior Chan MD PCP - General Internal Medicine 07/30/15 Yunior Chan MD [address] [place] [phone] PCP - Attributed-MSSP 12/17/18 11/18/19 Jose Juan Bowens MD [address] [place] [address] [place] [phone] PCP - Attributed-MSSP 11/19/19 04/17/20 Valerie Nina APRN-PHOTOGRAPHY SALES ASSOCIATE [address] [place] [address] PCP - Attributed-MSSP 04/18/20 05/18/20 Jose Juan Bowens MD [address] [facility] [address] [place] [address] PCP - Attributed-MSSP 05/19/20 0 Valerie Nina APRN-PHOTOGRAPHY SALES ASSOCIATE [address] [place] [address] PCP - Attributed-MSSP 10/19/20 12/16/20 Jose Juan Bowens MD [address] [facility] [address] [place] [address] PCP - Attributed-MSSP 12/17/20 1 Yunior Chan MD [address] [place] [phone] PCP - Attributed-MSSP 10/19/21 02/15/22 Jose Juan Bowens MD [address] [facility] [address] [place] [address] PCP - Attributed-MSSP 02/16/22 06/18/22 Yunior Chan MD [address] [place] [phone] PCP - Attributed-MSSP 06/19/22 11/ 2 Jose Juan Bowens MD [address] [facility] [address] [place] [address] PCP - Attributed-MSSP 09/18/22 01/17/24 Yunior Chan MD [address] [phone] PCP - Attributed-MSSP 01/18/24 [place] [address] [address] PCP - Attributed-MSSP 03/25/17 04/25/17 Tyler Monae MD Cardiology 04/07/14 05/11/19 Jose Juan Bowens MD [address] [facility] [address] [place], [place] [phone] Cardiovascular Disease 05/12/19 Grisel Gastelum RN Inspector Final Assembly MechanicalGraduate Civil Engineer 04/26/24 04/28/24 David Leggett Care Coordination Specialist Care Management 06/30/24 06/30/24 Shira Burton Care Coordination Specialist Care Management 01/10/25 01/10/25 documented as of this encounter
[2025-05-27 06:10] VITALS: BP 175/75; PULSE 87; RESP 18; TEMP 36.9; O2SAT 96
--- NOTE | 2025-05-27 06:29 | ED_ITS ---
HPI - Ear Problem General Chief complaint: Ear Stated complaint: blood coming out of right ear, on xarelto Time Seen by Provider: 05/27/25 06:22 History of Present Illness HPI Narrative: 85-year-old female presenting to the emergency department with minor bleeding that she knows from her right ear. She felt like her ear was blocked overnight and knows that it has small drop a blood this morning on tissue when she tried to wipe it away. Is on Xarelto for AFib. Was otherwise in her normal state of health. Sees ENT every 6 months for chronic issues with her ears including needing debridement of ear wax. Has had a previous tympanic membrane perforation of the left ear but no injuries to her right ear that she is aware of. Denies any insertion or trauma, no barotrauma or travel. Only had a small drop of blood but no other bleeding or active hemorrhage. Denies any other sym ptoms. No fever, chills, headache. No ear pain. No submersion or exposure to the lakes, pools or hot tubs. Related Data Home Medications ?Medication ?Instructions ?Recorded ?Confirmed ?Last Taken ?Type amlodipine 5 mg tablet 5 mg PO HS 06/10/23 07/13/24 07/12/24 History aspirin 81 mg tablet,delayed 81 mg PO HS 06/10/23 07/13/24 07/12/24 History release cinnamon bark 500 mg capsule 1,000 mg PO DAILY 06/10/23 07/13/24 07/12/24 History (Cinnamon) colesevelam 625 mg tablet 1,875 mg PO BID 06/10/23 07/13/24 07/12/24 History ezetimibe 10 mg tablet 10 mg PO HS 06/10/23 07/13/24 07/12/24 History levothyroxine 125 mcg tablet 112 mcg PO DAILY 06/10/23 07/13/24 07/12/24 History (Synthroid) metoprolol succinate 100 mg 100 mg PO HS 06/10/23 07/13/24 07/12/24 History tablet,extended release 24 hr omega-3s 360 rx-hoj-oyn-fish oil 1 cap PO BID 06/10/23 07/13/24 07/12/24 History 1,200 mg-D3 1,000 unit capsule (Fish Oil-Vit D3) rivaroxaban 20 mg tablet (Xarelto) 20 mg PO QPM 06/10/23 07/13/24 07/12/24 History losartan 100 mg tablet 100 mg PO HS 07/13/24 07/13/24 07/12/24 History Allergies Allergy/AdvReac Type Severity Reaction Status Date / Time Sulfa (Sulfonamide Allergy Intermediate Hives / Verified 05/27/25 06:16 Antibiotics) Red Face azithromycin Allergy Mild Rash Verified 05/27/25 06:16 clavulanic acid Allergy Mild Swelling Verified 05/27/25 06:16 lisinopril Allergy Mild Cough Verified 05/27/25 06:16 Penicillins Allergy Mild Swelling Verified 05/27/25 06:16 amoxicillin Allergy Unknown Unknown Verified 05/27/25 06:16 BETALACTAMASEIN Allergy Mild Swelling Uncoded 05/27/25 06:16 Review of Systems Review of Systems: As reviewed above in [facility] Past Medical History Medical History Occult blood in stools Atrial fibrillation Hypothyroidism Hyperlipidemia Hypertension Coronary artery disease Surgical History Surgical History History of percutaneous coronary intervention One stent History of cholecystectomy History of tonsillectomy Family History Family History Father Lung cancer Mother History of heart bypass surgery Sibling Pancreatic cancer Social History Social History Social History: She lives with her and has 2 children. She is a lifelong nonsmoker. No alcohol marijuana or illicit drugs. 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 Code status full code Smoking status: Never smoker Second hand tobacco smoke exposure: No Alcohol intake: never Substance use: never Do You Feel Safe in your Home?: Yes Lack of Transportation: No Lack of Food: Never True Current Housing: I Have Housing Concerned About Future Housing: No Difficulty Paying Gas/Electric Bills: No Difficulty Paying for Meds: No Currently Unemployed: No Education: Bachelor's Degree Difficulty w/ Childcare or Family Care: No Spiritual care concerns: No Exam Narrative: GENERAL: [Well-appearing, well-nourished, and in no acute distress.] HEAD: [Normocephalic, atraumatic.] EYES: [PERRLA and EOMI.] ENT: Nares clear, no rhinorrhea or epistaxis. Mucous membranes moist. External auditory canal on the right side has some excoriations and macerated tissue without any active bleeding. Recent foci of small bleeding that has since stopped. Tympanic membrane appears clear without any effusions. No bulging. No pain or protrusion of the ear. Contralateral ear without any issues. NECK: Supple. CHEST: No respiratory distress ABDOMEN: [Soft, nondistended], [nontender], [No rigidity or guarding] EXTREMITIES: Normal range of motion. [No edema.] SKIN: Warm, dry, no rash. NEURO: [No focal deficits]. Alert and oriented [x3.] PSYCH: [Normal mood and affect.] Course Vital Signs Vital signs: Vital Signs Temperature 36.9 C 05/27/25 06:10 Pulse Rate 87 05/27/25 06:10 Respiratory Rate 18 05/27/25 06:10 Blood Pressure 175/75 H 05/27/25 06:10 Pulse Oximetry 96 05/27/25 06:10 Oxygen Delivery Room Air 05/27/25 06:10 Temperature 36.9 C 05/27/25 06:10 Pulse Rate 87 05/27/25 06:10 Respiratory Rate 18 05/27/25 06:10 Blood Pressure 175/75 H 05/27/25 06:10 Pulse Oximetry 96 05/27/25 06:10 Oxygen Delivery Room Air 05/27/25 06:10 Medical Decision Making [facility] Narrative Medical decision making narrative: 85-year-old female presenting to the emergency department with minor bleeding that she knows from her right ear. She felt like her ear was blocked overnight and knows that it has small drop a blood this morning on tissue when she tried to wipe it away. Is on Xarelto for AFib. Was otherwise in her normal state of health. Sees ENT every 6 months for chronic issues with her ears including needing debridement of ear wax. Has had a previous tympanic membrane perforation of the left ear but no injuries to her right ear that she is aware of. Denies any insertion or trauma, no barotrauma or travel. Only had a small drop of blood but no other bleeding or active hemorrhage. Denies any other symptoms. No fever, chills, headache. No ear pain. No submersion or exposure to the lakes, pools or hot tubs. Nares clear, no rhinorrhea or epistaxis. Mucous membranes moist. External auditory canal on the right side has some excoriations and macerated tissue without any active bleeding. Recent foci of small bleeding that has since stopped. Tympanic membrane appears clear without any effusions. No bulging. No pain or protrusion of the ear. Contralateral ear without any issues. Patient has signs and symptoms consistent with otitis externa and will be prescribed Ciprodex and encouraged to follow-up with her ENT which she has an appointment in June. Also given local ENT referral if they can see her sooner. She can continue taking her anticoagulation and given return precautions. Medical Records Medical records reviewed: Yes I reviewed the external patient's medical records. Vital Signs Vital Signs: Vital Signs Temperature 36.9 C 05/27/25 06:10 Pulse Rate 87 05/27/25 06:10 Respiratory Rate 18 05/27/25 06:10 Blood Pressure 175/75 H 05/27/25 06:10 Pulse Oximetry 96 05/27/25 06:10 Oxygen Delivery Room Air 05/27/25 06:10 Temperature 36.9 C 05/27/25 06:10 Pulse Rate 87 05/27/25 06:10 Respiratory Rate 18 05/27/25 06:10 Blood Pressure 175/75 H 05/27/25 06:10 Pulse Oximetry 96 05/27/25 06:10 Oxygen Delivery Room Air 05/27/25 06:10 Discharge Plan Discharge Clinical Impression: Otitis externa Patient Disposition: Home Condition: Stable Instructions: Antibiotic Form, Ear Infection (ED), Earache (ED) Additional Instructions: Will prescribe you ear drops that contain antibiotic as well as a low-dose steroid to control the inflammation and potential irritation/infection in the right ear. Take the drops as prescribed and follow-up with your primary care provider and keep the ear nose and throat appointment you of scheduled. Continue taking your blood thinner medication. Return with any emergent concerns. Patient Language: Kiswahili Prescriptions: New ciprofloxacin-dexamethasone 0.3-0.1 % drops,suspension 4 drp RIGHT EAR Q12H 7 Days Qty: 7.5 0RF No Action losartan 100 mg tablet 100 mg PO HS polysaccharide iron complex 150 mg iron Capsule 150 mg PO BIDWM Qty: 60 0RF furosemide [Lasix] 20 mg tablet 20 mg PO DAILY Qty: 30 0RF metoprolol succinate 100 mg tablet extended release 24 hr 100 mg PO HS amlodipine 5 mg tablet 5 mg PO HS colesevelam 625 mg tablet 1,875 mg PO BID levothyroxine [Synthroid] 125 mcg tablet 112 mcg PO DAILY ezetimibe 10 mg tablet 10 mg PO HS Xarelto 20 mg tablet 20 mg PO QPM aspirin 81 mg Tablet,Delayed Release (Dr/Ec) 81 mg PO HS cinnamon bark [Cinnamon] 500 mg Capsule 1,000 mg PO DAILY sqquh-4m-waa-epa-fish oil-D3 [Fish Oil-Vit D3] 360 mg-1,200 mg -1,000 unit Capsule 1 cap PO BID Follow-up/Referrals: Dotna Hopkins MD [Physician] - 1 Week (otitis externa) PHYSICIAN NOT ON STAFF,NONSTAFF [Primary Care Provider] - Time of Disposition: 06:32
[2025-05-27] MEDS: NEOMYCIN/POLYMYXIN/HYDROCORT OT SUSP 10 ML BTL (*BKC) 3 DROP RIGHT EAR (06:53)
[2025-05-27 06:55] VITALS: BP 146/67; PULSE 65; RESP 18; O2SAT 99
== END 2025-05-27 06:56 | disposition home or self-care (01) ==
PROVIDERS: Emergency Provider Student in an Organized Health Care Education/Training Program
DX: H60.91 Unspecified otitis externa, right ear (principal); I48.91 Unspecified atrial fibrillation; E03.9 Hypothyroidism, unspecified; E78.5 Hyperlipidemia, unspecified; I10 Essential (primary) hypertension; I25.10 Atherosclerotic heart disease of native coronary artery without angina pectoris; Z79.01 Long term (current) use of anticoagulants
CPT/HCPCS: 99283; A9270